=== PATIENT | female | born 1945 | race Caucasian/White ===

== ENCOUNTER 2016-06-06 13:42 | Inpatient (IN) | payer MEDICARE, MEDICAID ==
[~2016-06-06] VITALS: Ht 162.6 cm; Wt 76.5 kg
[~2016-06-06 13:42] MED LIST: ALBU1AER INH; ARIC5TAB PO; ATOR20TA42 PO; BETH25 PO; DOCU1CAP39 PO; FERR324T4 PO; FOLI1TAB PO; MELO15 PO; OXYB5TAB PO; PANT20 PO; TRAZ50TA4 PO; TYLE500T PO; VALP250 PO
[2016-06-06] MEDS ORDERED: SODIUM CHLOR 0.9% 1000 ML INJ 1,000 ML IV SCH (14:36)
--- NOTE | 2016-06-06 14:37 | PD ---
HPI Chief Complaint: Altered Mental Status Time Seen by Provider: 14:37 Travel History International Travel<30 days: No Contact w/Intl Traveler<30days: No Traveled to known affect area: No History of Present Illness HPI 70 year-old female with history of dementia, hypertension, COPD, CAD, presents to the emergency department from her SNF for evaluation of altered mental status. Patient had a fall yesterday. It is unknown if it was witnessed or not based on report. Patient has been "acting different." When I asked the patient what she is here for, she states "I've already told you guys." She does not report any pain. Does not mention a fall. Does not mention any recent illnesses, fever, or chills. She has no other symptoms to report at this time. PFSH Past Medical History Bipolar Disorder: Yes Anxiety: Yes Depression: Yes High Cholesterol: Yes COPD: Yes Cerebrovascular Accident: Yes Dementia: Yes Diminished Hearing: No Endocrine: No (unknown) GERD: Yes Hypertension: Yes Immune Disorder: No (unknown) Implanted Vascular Access Dvce: No Insomnia: Yes Musculoskeletal: No (unknown) Respiratory: Yes (copd) Myocardial Infarction: Yes Menopausal: Yes Past Surgical History Hysterectomy: Yes Pacemaker: No Other Surgery: Yes (plan) Social History Alcohol Use: No Tobacco Use: Yes Substance Use: No Allergies-Medications (Allergen,Severity, Reaction): Coded Allergies: Salicylates (Verified Allergy, Unknown, 06/06/16) Reported Meds & Prescriptions Reported Meds & Active Scripts Active Reported Valproic Acid 250 Mg Cap 250 Mg PO HS Tums (Calcium Carbonate (Antacid)) 500 Mg Chew 500 Mg CHEW Q6HR PRN Trazodone (Trazodone HCl) 50 Mg Tab 25 Mg PO HS Protonix (Pantoprazole Sodium) 40 Mg Tab 40 Mg PO DAILY Ditropan (Oxybutynin Chloride) 5 Mg Tab 5 Mg PO Q8HR Milk of Magnesia Liq (Magnesium Hydroxide) 400 Mg/5 Ml Susp 30 Ml PO DAILY PRN Meloxicam 15 Mg Tab 15 Mg PO DAILY Folic Acid 400 Mcg Tab 400 Mcg PO DAILY Ferrous Sulfate 325 Mg Tab 325 Mg PO DAILY Dulcolax Supp (Bisacodyl) 10 Mg Supp 10 Mg RECTAL DAILY PRN Donepezil 10 Mg Tab 10 Mg PO HS Colace (Docusate Sodium) 100 Mg Cap 100 Mg PO BID Bethanechol 25 Mg Tab 25 Mg PO Q8HR Atorvastatin (Atorvastatin Calcium) 20 Mg Tab 20 Mg PO HS Acetaminophen Extra Strength (Acetaminophen) 500 Mg Cap 500 Mg PO Q6H PRN Review of Systems ROS Limitations: Altered Mental Status Except as stated in HPI: all other systems reviewed are Neg Physical Exam Exam Limitations: Altered Mental Status Narrative GENERAL: Well-nourished female patient, pleasantly confused, lying in the bed, in no acute distress SKIN: Warm and dry. HEAD: Atraumatic. Normocephalic. EYES: Pupils equal and round. No scleral icterus. No injection or drainage. ENT: No nasal bleeding or discharge. Mucous membranes pink and moist. NECK: Trachea midline. No JVD. CARDIOVASCULAR: Tachycardic rate and rhythm. No murmur appreciated. RESPIRATORY: No accessory muscle use. Diminished. Breath sounds equal bilaterally. GASTROINTESTINAL: Abdomen soft, non-tender, nondistended. Hepatic and splenic margins not palpable. MUSCULOSKELETAL: No obvious deformities. No clubbing. No cyanosis. 1+ bilateral lower extremity edema. NEUROLOGICAL: Awake Orientation is difficult to assess based on patient's answers. No obvious cranial nerve deficits. Motor grossly within normal limits. Normal speech. Data Data Last Documented VS Vital Signs Date Time Temp Pulse Resp B/P Pulse Ox O2 Delivery O2 Flow Rate FiO2 06/06/16 20:43 98.3 103 20 101/62 94 Nasal Cannula 2 Orders Electrocardiogram (06/06/16 14:36) Alcohol (Ethanol) (06/06/16 14:36) Ammonia (06/06/16 14:36) Complete Blood Count With Diff (06/06/16 14:36) Comprehensive Metabolic Panel (06/06/16 14:36) Creatine Kinase (Cpk) (06/06/16 14:36) Drug Screen, Random Urine (06/06/16 14:36) Prothrombin Time / Inr (Pt) (06/06/16 14:36) Act Partial Throm Time (Ptt) (06/06/16 14:36) Troponin I (06/06/16 14:36) Urinalysis - C+S If Indicated (06/06/16 14:36) Chest, Single Ap (06/06/16 14:36) Ct Brain W/O Iv Contrast(Rout) (06/06/16 14:36) Blood Glucose (06/06/16 14:36) Ecg Monitoring (06/06/16 14:36) Iv Access Insert/Monitor (06/06/16 14:36) Oximetry (06/06/16 14:36) Sodium Chloride 0.9% Flush (Ns Flush) (06/06/16 14:45) Sodium Chlor 0.9% 1000 Ml Inj (Ns 1000 M (06/06/16 14:36) CKMB (06/06/16 16:53) CKMB% (06/06/16 16:53) Cath For Specimen (06/06/16 18:08) Lactic Acid Sepsis Protocol (06/06/16 18:10) Magnesium (Mg) (06/06/16 18:10) Phosphorus (Po4) (06/06/16 18:10) Blood Culture (06/06/16 18:10) Piperacil-Tazo 3.375 Gm Premix (Zosyn 3. (06/06/16 18:30) Sodium Chlor 0.9% 1000 Ml Inj (Ns 1000 M (06/06/16 20:45) Aspirin (Aspirin) (06/06/16 21:00) Admit Order (Ed Use Only) (06/06/16 20:54) Labs Laboratory Tests Test 06/06/16 06/06/16 06/06/16 16:53 19:40 20:08 White Blood Count 15.4 TH/MM3 Red Blood Count 5.16 MIL/MM3 Hemoglobin 14.0 GM/DL Hematocrit 43.2 % Mean Corpuscular Volume 83.7 FL Mean Corpuscular Hemoglobin 27.2 PG Mean Corpuscular Hemoglobin 32.5 % Concent Red Cell Distribution Width 15.6 % Platelet Count 261 TH/MM3 Mean Platelet Volume 9.8 FL Neutrophils (%) (Auto) 89.0 % Lymphocytes (%) (Auto) 6.4 % Monocytes (%) (Auto) 4.5 % Eosinophils (%) (Auto) 0.0 % Basophils (%) (Auto) 0.1 % Neutrophils # (Auto) 13.7 TH/MM3 Lymphocytes # (Auto) 1.0 TH/MM3 Monocytes # (Auto) 0.7 TH/MM3 Eosinophils # (Auto) 0.0 TH/MM3 Basophils # (Auto) 0.0 TH/MM3 CBC Comment AUTO DIFF Differential Comment AUTO DIFF CONFIRMED Platelet Estimate NORMAL Platelet Morphology Comment NORMAL Ovalocytes 1+ Acanthocytes OCC Prothrombin Time 10.7 SEC Prothromb Time International 1.0 RATIO Ratio Activated Partial 20.2 SEC Thromboplast Time Sodium Level 135 MEQ/L Potassium Level 4.8 MEQ/L Chloride Level 96 MEQ/L Carbon Dioxide Level 30.4 MEQ/L Anion Gap 9 MEQ/L Blood Urea Nitrogen 68 MG/DL Creatinine 1.64 MG/DL Estimat Glomerular Filtration 31 ML/MIN Rate Random Glucose 140 MG/DL Calcium Level 15.3 MG/DL Protein Corrected Calcium 14.7 MG/DL Total Bilirubin 0.2 MG/DL Aspartate Amino Transf 15 U/L (AST/SGOT) Alanine Aminotransferase 14 U/L (ALT/SGPT) Alkaline Phosphatase 53 U/L Ammonia 19 MCMOL/L Total Creatine Kinase 292 U/L Creatine Kinase MB 5.7 NG/ML Creatine Kinase MB % 2.0 % Troponin I 0.27 NG/ML Total Protein 7.8 GM/DL Albumin 3.8 GM/DL Ethyl Alcohol Level LESS THAN 3 MG/DL Urine Color YELLOW Urine Turbidity CLEAR Urine pH 5.5 Urine Specific [place] 1.018 Urine Protein NEG mg/dL Urine Glucose (UA) NEG mg/dL Urine Ketones NEG mg/dL Urine Occult Blood TRACE Urine Nitrite NEG Urine Bilirubin NEG Urine Urobilinogen LESS THAN 2.0 MG/DL Urine Leukocyte Esterase NEG Urine RBC 1 /hpf Urine WBC 1 /hpf Urine Squamous Epithelial 1 /hpf Cells Microscopic Urinalysis Comment CULT NOT INDICATED Urine Opiates Screen NEG Urine Barbiturates Screen NEG Urine Amphetamines Screen NEG Urine Benzodiazepines Screen NEG Urine Cocaine Screen NEG Urine Cannabinoids Screen NEG Lactic Acid Level 2.3 mmol/L [facility] Medical Decision Making Medical Screen Exam Complete: Yes Emergency Medical Condition: Yes Medical Record Reviewed: Yes Differential Diagnosis Electrolyte abnormality versus intracranial hemorrhage versus dehydration versus CVA versus sepsis Narrative Course 70-year-old female presents to the emergency department for evaluation from her long term facility for evaluation. Patient has history of dementia and offers for history. Per report patient had a fall and has been acting altered today. There is no obvious head trauma. Workup was initiated in the triage ambulance hallway. Chest x-ray result a small hiatal hernia. No acute cardiopulmonary disease. head CT shows severe periventricular and subcortical white matter small vessel ischemic changes bilaterally. There are scattered old lacunar infarcts within the bilateral basal ganglia and left cerebellar hemisphere. Central cerebral atrophy. No acute infarct, acute hemorrhage, mass effect, or extra-axial fluid collections. Lab work has not yet been collected. 1745 CBC results leukocytosis of 15.4. There is a left shift and a neutrophil count of 13.7. CMP results sodium of 135, BUN of 68, creatinine 1.64, calcium of 15.3 with approaching corrected calcium of 14.7. Troponin is elevated 0.27. I discussed the patient with my attending physician Dr. Rios was also assessed the patient. Patient is still saying no when asked if she is having pain. Urinalysis is not yet been collected. Patient is given IV antibiotics based on tachycardia and elevated white count. Sepsis protocol is initiated. Sepsis Criteria SIRS Criteria (2 or more): Heart rate over 90, WBC > 55974, < 4000 or > 10% bands Sepsis Criteria (SIRS+source): Infect source susp/known Diagnosis Primary Impression: Altered mental status Qualified Code: R41.82 - Altered mental status, unspecified altered mental status type Additional Impressions: Hypercalcemia Elevated troponin Lactic acidosis Admitting Information Admitting Physician Requests: Admit Condition: Stable Anupama Yo Jun 06, 2016 14:37
[2016-06-06] MEDS ORDERED: SODIUM CHLORIDE 0.9% FLUSH 5 ML FLUSH IVF PRN (14:45)
--- NOTE | 2016-06-06 15:29 | RADRPT ---
EXAM DATE/TIME: 06/06/2016 14:51 [facility] COMPARISON: CT ABDOMEN & PELVIS W/O CONTRAST, May 12, 2015, 13:11. CHEST SINGLE AP, March 12, 2016, 21:23 . INDICATIONS : Short of breath. MEDICAL HISTORY : Cerebrovascular disease. Hypertension. Dementia. SURGICAL HISTORY : None. ENCOUNTER: Initial ACUITY: 1 day PAIN SCORE: 0/10 LOCATION: Bilateral chest FINDINGS: The heart and mediastinal structures are stable. A small hiatal hernia is again noted. The pulmonary vascular pattern is normal. The lungs are clear. Old fracture involving the right mid clavicle is st able. CONCLUSION: 1. Small hiatal hernia. 2. No acute cardiopulmonary disease. Chandra Carlton MD on June 06, 2016 at 15:23 Board Certified Radiologist. This report was verified electronically.
[2016-06-06 15:34] VITALS: BP 145/79; PULSE 82; RESP 18; TEMP 97.9; O2SAT 98
--- NOTE | 2016-06-06 16:12 | RADRPT ---
EXAM DATE/TIME: 06/06/2016 15:37 [facility] COMPARISON: CT BRAIN W/O CONTRAST, October 25, 2015, 21:55. INDICATIONS : Altered mental status RADIATION DOSE: 43.18 CTDIvol (mGy) MEDICAL HISTORY : Stroke. Dementia. Hypertension. SURGICAL HISTORY : None. ENCOUNTER: Initial ACUITY: 1 day PAIN SCALE: Non-responsive LOCATION: Cranial TECHNIQUE: Multiple contiguous axial images were obtained of the head. Using automated exposure control and adj ustment of the mA and/or kV according to patient size, radiation dose was kept as low as reasonably a chievable to obtain optimal diagnostic quality images. FINDINGS: Severe periventricular and subcortical white matter small vessel ischemic changes are noted bilateral ly. There are old lacunar infarcts within the bilateral basal ganglia and left cerebellar hemisphere . Central cerebral atrophy is noted. There is no acute infarct, acute hemorrhage, mass effect or ex tra-axial fluid collections. The bone windows are unremarkable. CONCLUSION: 1. Severe periventricular and subcortical white matter small vessel ischemic changes bilaterally. 2. Scattered old lacunar infarcts within the bilateral basal ganglia and left cerebellar hemisphere. 3. Central cerebral atrophy. 4. No acute infarct, acute hemorrhage, mass effect or extra-axial fluid collections. Chandra Carlton MD on June 06, 2016 at 15:55 Board Certified Radiologist. This report was verified electronically.
[2016-06-06 17:20] LABS: AUTOMATED NEUTROPHIL # 13.7 TH/MM3 (1.8-7.7); BASOPHIL % 0.1 % (0.0-2.0); HEMATOCRIT 43.2 % (35.0-46.0); LYMPH % 6.4 % (9.0-44.0); MEAN CELL VOLUME 83.7 FL (80.0-100.0); MEAN CORPUSCULAR HEMOGLOBIN 27.2 PG (27.0-34.0); MEAN CORPUSCULAR HGB CONC 32.5 % (32.0-36.0); MONO % 4.5 % (0.0-8.0); PLATELET COUNT 261 TH/MM3 (150-450); RED BLOOD COUNT 5.16 MIL/MM3 (4.00-5.30); RED CELL DISTRIBUTION WIDTH 15.6 % (11.6-17.2); WHITE BLOOD COUNT 15.4 TH/MM3 (4.0-11.0)
[2016-06-06 17:29] LABS: HEMO FLAGS AUTO DIFF
[2016-06-06 17:40] LABS: APTT (PATIENT) 20.2 SEC (24.3-30.1); PROTHROMBIN TIME - PATIENT 10.7 SEC (9.8-11.6)
[2016-06-06 17:52] LABS: ACANTHOCYTES OCC (NORMAL); ALKALINE PHOSPHATASE 53 U/L (45-117); ALT (GPT) 14 U/L (10-53); ANION GAP 9 MEQ/L (5-15); AST (GOT) 15 U/L (15-37); BICARBONATE 30.4 MEQ/L (21.0-32.0); BLOOD UREA NITROGEN 68 MG/DL (7-18); CHLORIDE 96 MEQ/L (98-107); CREATINE KINASE 292 U/L (26-192); GLOMERULAR FILTRATION RATE 31 ML/MIN (>89); POTASSIUM 4.8 MEQ/L (3.5-5.1); SODIUM (NA) 135 MEQ/L (136-145); TOTAL BILIRUBIN ADULT 0.2 MG/DL (0.2-1.0)
[2016-06-06 17:53] LABS: OVALOCYTES 1+ (NORMAL); PLATELET ESTIMATE SMEAR NORMAL (NORMAL); PLATELET MORPHOLOGY NORMAL (NORMAL); SCAN/DIFF AUTO DIFF CONFIRMED
[2016-06-06 18:01] LABS: CALCIUM-PROTEIN CORRECTED 14.7 MG/DL (8.5-10.1)
[2016-06-06 18:22] LABS: CKMB 5.7 NG/ML (0.5-3.6)
[2016-06-06] MEDS ORDERED: PIPERACIL-TAZO 3.375 GM PREMIX 50 ML IV ONE (18:30)
[2016-06-06 19:26] VITALS: BP 132/76; PULSE 120; RESP 20; TEMP 97.9; O2SAT 94
[2016-06-06 19:30] VITALS: RESP 18
[2016-06-06 20:19] LABS: BLOOD, URINE TRACE (NEG); GLUCOSE,URINE NEG (NEG); KETONE, URINE NEG (NEG); NITRITE,URINE NEG (NEG); PH, URINE 5.5 (5.0-8.5); SQUAMOUS EPITHELIAL CELL URINE 1 /hpf (0-5); URINE COLOR YELLOW (YELLW/STRAW)
[2016-06-06 20:22] LABS: AMPHETAMINE, URINE NEG (NEG); BARBITURATES, URINE NEG (NEG); COCAINE, URINE NEG (NEG)
[2016-06-06 20:33] LABS: COMMENT (UR) CULT NOT INDICATED; CULTURE IF INDICATED CULT NOT INDICATED
--- NOTE | 2016-06-06 20:37 | PD ---
Physical Exam Narrative GENERAL: Well-nourished, well-developed patient. SKIN: Warm and dry. HEAD: Normocephalic EYES: No injection or drainage. ENT: No nasal drainage noted. NECK: Supple, trachea midline. CARDIOVASCULAR: Regular rate and rhythm RESPIRATORY: no increased effort. No accessory muscle use. NEUROLOGICAL: Awake. moves all extremities. Normal speech. Data Data Last Documented VS Vital Signs Date Time Temp Pulse Resp B/P Pulse Ox O2 Delivery O2 Flow Rate FiO2 06/06/16 20:43 98.3 103 20 101/62 94 Nasal Cannula 2 Orders Electrocardiogram (06/06/16 14:36) Alcohol (Ethanol) (06/06/16 14:36) Ammonia (06/06/16 14:36) Complete Blood Count With Diff (06/06/16 14:36) Comprehensive Metabolic Panel (06/06/16 14:36) Creatine Kinase (Cpk) (06/06/16 14:36) Drug Screen, Random Urine (06/06/16 14:36) Prothrombin Time / Inr (Pt) (06/06/16 14:36) Act Partial Throm Time (Ptt) (06/06/16 14:36) Troponin I (06/06/16 14:36) Urinalysis - C+S If Indicated (06/06/16 14:36) Chest, Single Ap (06/06/16 14:36) Ct Brain W/O Iv Contrast(Rout) (06/06/16 14:36) Blood Glucose (06/06/16 14:36) Ecg Monitoring (06/06/16 14:36) Iv Access Insert/Monitor (06/06/16 14:36) Oximetry (06/06/16 14:36) Sodium Chloride 0.9% Flush (Ns Flush) (06/06/16 14:45) Sodium Chlor 0.9% 1000 Ml Inj (Ns 1000 M (06/06/16 14:36) CKMB (06/06/16 16:53) CKMB% (06/06/16 16:53) Cath For Specimen (06/06/16 18:08) Lactic Acid Sepsis Protocol (06/06/16 18:10) Magnesium (Mg) (06/06/16 18:10) Phosphorus (Po4) (06/06/16 18:10) Blood Culture (06/06/16 18:10) Piperacil-Tazo 3.375 Gm Premix (Zosyn 3. (06/06/16 18:30) Sodium Chlor 0.9% 1000 Ml Inj (Ns 1000 M (06/06/16 20:45) Aspirin (Aspirin) (06/06/16 21:00) Labs Laboratory Tests Test 06/06/16 06/06/16 16:53 19:40 White Blood Count 15.4 TH/MM3 Red Blood Count 5.16 MIL/MM3 Hemoglobin 14.0 GM/DL Hematocrit 43.2 % Mean Corpuscular Volume 83.7 FL Mean Corpuscular Hemoglobin 27.2 PG Mean Corpuscular Hemoglobin 32.5 % Concent Red Cell Distribution Width 15.6 % Platelet Count 261 TH/MM3 Mean Platelet Volume 9.8 FL Neutrophils (%) (Auto) 89.0 % Lymphocytes (%) (Auto) 6.4 % Monocytes (%) (Auto) 4.5 % Eosinophils (%) (Auto) 0.0 % Basophils (%) (Auto) 0.1 % Neutrophils # (Auto) 13.7 TH/MM3 Lymphocytes # (Auto) 1.0 TH/MM3 Monocytes # (Auto) 0.7 TH/MM3 Eosinophils # (Auto) 0.0 TH/MM3 Basophils # (Auto) 0.0 TH/MM3 CBC Comment AUTO DIFF Differential Comment AUTO DIFF CONFIRMED Platelet Estimate NORMAL Platelet Morphology Comment NORMAL Ovalocytes 1+ Acanthocytes OCC Prothrombin Time 10.7 SEC Prothromb Time International 1.0 RATIO Ratio Activated Partial 20.2 SEC Thromboplast Time Sodium Level 135 MEQ/L Potassium Level 4.8 MEQ/L Chloride Level 96 MEQ/L Carbon Dioxide Level 30.4 MEQ/L Anion Gap 9 MEQ/L Blood Urea Nitrogen 68 MG/DL Creatinine 1.64 MG/DL Estimat Glomerular Filtration 31 ML/MIN Rate Random Glucose 140 MG/DL Calcium Level 15.3 MG/DL Protein Corrected Calcium 14.7 MG/DL Total Bilirubin 0.2 MG/DL Aspartate Amino Transf 15 U/L (AST/SGOT) Alanine Aminotransferase 14 U/L (ALT/SGPT) Alkaline Phosphatase 53 U/L Ammonia 19 MCMOL/L Total Creatine Kinase 292 U/L Creatine Kinase MB 5.7 NG/ML Creatine Kinase MB % 2.0 % Troponin I 0.27 NG/ML Total Protein 7.8 GM/DL Albumin 3.8 GM/DL Ethyl Alcohol Level LESS THAN 3 MG/DL Urine Color YELLOW Urine Turbidity CLEAR Urine pH 5.5 Urine Specific [place] 1.018 Urine Protein NEG mg/dL Urine Glucose (UA) NEG mg/dL Urine Ketones NEG mg/dL Urine Occult Blood TRACE Urine Nitrite NEG Urine Bilirubin NEG Urine Urobilinogen LESS THAN 2.0 MG/DL Urine Leukocyte Esterase NEG Urine RBC 1 /hpf Urine WBC 1 /hpf Urine Squamous Epithelial 1 /hpf Cells Microscopic Urinalysis Comment CULT NOT INDICATED Urine Opiates Screen NEG Urine Barbiturates Screen NEG Urine Amphetamines Screen NEG Urine Benzodiazepines Screen NEG Urine Cocaine Screen NEG Urine Cannabinoids Screen NEG MDM Supervised Visit with PILAR: Yes Interpretation(s) CBC & BMP Diagram 06/06/16 16:53 Last [address] 06/06/16 1436 Signed Impressions: Service Date/Time: Monday, June 06, 2016 15:37 - CONCLUSION: 1. Severe periventricular and subcortical white matter small vessel ischemic changes bilaterally. 2. Scattered old lacunar infarcts within the bilateral basal ganglia and left cerebellar hemisphere. 3. Central cerebral atrophy. 4. No acute infarct, acute hemorrhage, mass effect or extra-axial fluid collections. Chandra Carlton MD Chest X-Ray 06/06/16 1436 Signed Impressions: Service Date/Time: Monday, June 06, 2016 14:51 - CONCLUSION: 1. Small hiatal hernia. 2. No acute cardiopulmonary disease. Chandra Carlton MD Narrative Course I, Dr. coleman, have reviewed the advance practice practitioner's documentation and am in agreement, met with the patient face to face, made the diagnosis, and the medical decision making was done by me. *My assessment and Findings: 70-year-old female who presents with altered mental status her workup reveals leukocytosis and hypercalcemia. She will be given broad-spectrum antibiotics and lactate was added on. She'll be given IV fluid hydration and admitted to the hospital for further care. Physician Communication Physician Communication dr sen agrees to admit Diagnosis Primary Impression: Hypercalcemia Additional Impressions: Acute kidney injury Elevated troponin Leukocytosis Qualified Code: D72.829 - Leukocytosis, unspecified type Altered mental status Qualified Code: R41.82 - Altered mental status, unspecified altered mental status type Admitting Information Admitting Physician Requests: Admit Condition: Stable Prema Coleman MD Jun 06, 2016 20:37
[2016-06-06 20:43] VITALS: BP 101/62; PULSE 103; RESP 20; TEMP 98.3; O2SAT 94
[2016-06-06] MEDS ORDERED: SODIUM CHLOR 0.9% 1000 ML INJ 1,000 ML IV ONE (20:45)
[2016-06-06] MEDS ORDERED: FOLI400T PO (20:59)
[2016-06-06] MEDS ORDERED: VALP250C PO (20:59)
[2016-06-06] MEDS ORDERED: TRAZ50TA12 PO (20:59)
[2016-06-06] MEDS ORDERED: FERR325T PO (20:59)
[2016-06-06] MEDS ORDERED: ATOR20TA15 PO (20:59)
[2016-06-06] MEDS ORDERED: COLA100C3 PO (20:59)
[2016-06-06] MEDS ORDERED: BETH25TA2 PO (20:59)
[2016-06-06] MEDS ORDERED: PROT40TA PO (20:59)
[2016-06-06] MEDS ORDERED: MELO-1 PO (20:59)
[2016-06-06] MEDS ORDERED: TUMS500C CHEW (20:59)
[2016-06-06] MEDS ORDERED: DONE10TA7 PO (20:59)
[2016-06-06] MEDS ORDERED: OXYB5TAB10 PO (20:59)
[2016-06-06] MEDS ORDERED: DULC10SU3 RECTAL (20:59)
[2016-06-06] MEDS ORDERED: EXTR500C PO (20:59)
[2016-06-06] MEDS ORDERED: MILKSUS PO (20:59)
[2016-06-06] MEDS ORDERED: ASPIRIN 325 MG TAB PO ONE (21:00)
[2016-06-06 22:06] VITALS: BP 124/66; PULSE 98; RESP 20; TEMP 98; O2SAT 94
[2016-06-06 22:21] LABS: LACTIC ACID GHOST NOT REPORTABLE
[2016-06-06] MEDS ORDERED: SODIUM CHLORIDE 0.9% FLUSH 5 ML FLUSH FLUSH PRN (22:45)
[2016-06-06] MEDS ORDERED: NALOXONE HCL 0.4 MG/ML AMP IV PRN (22:45)
[2016-06-06 23:35] VITALS: BP 119/61; PULSE 98; RESP 20; TEMP 98; O2SAT 98
[2016-06-07] VITALS (8 sets, daily range): BP systolic 120–177; BP diastolic 75–94; PULSE 96–107; RESP 18–20; TEMP 97–98.4; O2SAT 95–97
[2016-06-07 05:45] LABS: AUTOMATED NEUTROPHIL # 8.8 TH/MM3 (1.8-7.7); BASOPHIL % 0.2 % (0.0-2.0); EOSINOPHIL % 0.3 % (0.0-4.0); HEMATOCRIT 35.5 % (35.0-46.0); LYMPH % 10.2 % (9.0-44.0); LYMPHOCYTE # 1.1 TH/MM3 (1.0-4.8); MEAN CELL VOLUME 85.8 FL (80.0-100.0); MEAN CORPUSCULAR HEMOGLOBIN 27.7 PG (27.0-34.0); MEAN CORPUSCULAR HGB CONC 32.2 % (32.0-36.0); MONO % 7.6 % (0.0-8.0); NEUT % 81.7 % (16.0-70.0); PLATELET COUNT 217 TH/MM3 (150-450); RED BLOOD COUNT 4.14 MIL/MM3 (4.00-5.30); WHITE BLOOD COUNT 10.8 TH/MM3 (4.0-11.0)
[2016-06-07 05:59] LABS: HEMO FLAGS AUTO DIFF
[2016-06-07 06:16] LABS: BICARBONATE 29.8 MEQ/L (21.0-32.0); POTASSIUM 4.5 MEQ/L (3.5-5.1); TOTAL BILIRUBIN ADULT 0.2 MG/DL (0.2-1.0)
[2016-06-07 07:04] LABS: ACANTHOCYTES OCC (NORMAL); OVALOCYTES 1+ (NORMAL); PLATELET ESTIMATE SMEAR NORMAL (NORMAL); PLATELET MORPHOLOGY NORMAL (NORMAL)
[2016-06-07 07:05] LABS: SCAN/DIFF AUTO DIFF CONFIRMED
[2016-06-07] MEDS: SODIUM CHLORIDE 0.9% FLUSH 5 ML FLUSH FLUSH SCH ×2 (09:00→20:51)
--- NOTE | 2016-06-07 10:48 | EKG ---
Date Performed: 06/06/2016 Time Performed: 17:51:37 PTAGE: 70 years EKG: SINUS TACHYCARDIA ABNORMAL RHYTHM ECG INTERPRETATION BASED ON A DEFAULT AGE OF 40 YEARS PREVIOUS TRACING : 03/12/2016 21.13 Compared to prior tracing no significant change DOCTOR: Michael Almodovar Interpretating Date/Time 06/07/2016 10:46:31
--- NOTE | 2016-06-07 12:39 | HHI.HP ---
History of Present Illness Service [facility] practice Primary Care Physician Manuel Crespo, DO Admission Diagnosis hypercalcemia Diagnoses: History of Present Illness 70 year-old female with history of dementia, hypertension, COPD, CAD, presents to the emergency department from her SNF for evaluation of altered mental status. Patient had a fall yesterday. It is unknown if it was witnessed or not based on report. Patient has been "acting different." Patient is a very poor historian and not answering all questions. Does not mention any recent illnesses, fever, or chills. She was found to leukocytosis, positive tropins, and hypercalcemia. Review of Systems ROS Limitations: Poor Historian Constitutional: COMPLAINS OF: Fatigue, DENIES: Fever, Chills Respiratory: DENIES: Cough, Wheezing, Sputum production, Shortness of breath Cardiovascular: DENIES: Chest pain, Palpitations Gastrointestinal: DENIES: Abdominal pain, Constipation, Diarrhea Neurologic: COMPLAINS OF: Localized weakness, Poor Balance, DENIES: Headache, Seizures Psychiatric: DENIES: Confusion Past Family Social History Allergies: Coded Allergies: Salicylates (Verified Allergy, Unknown, 06/06/16) Past Medical History Bipolar Disorder: Yes Anxiety: Yes Depression: Yes High Cholesterol: Yes COPD: Yes Cerebrovascular Accident: Yes Dementia: Yes Diminished Hearing: No Endocrine: No (unknown) GERD: Yes Hypertension: Yes Immune Disorder: No (unknown) Implanted Vascular Access Dvce: No Insomnia: Yes Musculoskeletal: No (unknown) Respiratory: Yes (copd) Myocardial Infarction: Yes Menopausal: Yes Past Surgical History Hysterectomy Reported Medications Reported Meds & Active Scripts Active Reported Valproic Acid 250 Mg Cap 250 Mg PO HS Tums (Calcium Carbonate (Antacid)) 500 Mg Chew 500 Mg CHEW Q6HR PRN Trazodone (Trazodone HCl) 50 Mg Tab 25 Mg PO HS Protonix (Pantoprazole Sodium) 40 Mg Tab 40 Mg PO DAILY Ditropan (Oxybutynin Chloride) 5 Mg Tab 5 Mg PO Q8HR Milk of Magnesia Liq (Magnesium Hydroxide) 400 Mg/5 Ml Susp 30 Ml PO DAILY PRN Meloxicam 15 Mg Tab 15 Mg PO DAILY Folic Acid 400 Mcg Tab 400 Mcg PO DAILY Ferrous Sulfate 325 Mg Tab 325 Mg PO DAILY Dulcolax Supp (Bisacodyl) 10 Mg Supp 10 Mg RECTAL DAILY PRN Donepezil 10 Mg Tab 10 Mg PO HS Colace (Docusate Sodium) 100 Mg Cap 100 Mg PO BID Bethanechol 25 Mg Tab 25 Mg PO Q8HR Atorvastatin (Atorvastatin Calcium) 20 Mg Tab 20 Mg PO HS Acetaminophen Extra Strength (Acetaminophen) 500 Mg Cap 500 Mg PO Q6H PRN Active Ordered Medications Current Medications Medications (Trade) Dose Ordered Sig/Amadou Route Start Time Stop Time Status Last Admin (NS Flush) 2 ml UNSCH PRN FLUSH 06/06/16 22:45 (NS Flush) 2 ml BID FLUSH 06/07/16 09:00 06/07/16 09:00 (Narcan Inj) 0.4 mg UNSCH PRN IV 06/06/16 22:45 Family History Smokes 1/2 pack per day Denies alcohol use. Physical Exam Vital Signs Vital Signs Date Time Temp Pulse Resp B/P Pulse Ox O2 Delivery O2 Flow Rate FiO2 06/07/16 11:55 101 18 95 Room Air 06/07/16 11:55 100 18 136/75 97 Room Air 06/07/16 04:19 105 18 131/77 97 Nasal Cannula 2 06/07/16 04:17 96 18 131/77 97 Nasal Cannula 2 06/06/16 23:35 98.0 98 20 119/61 98 Nasal Cannula 2 06/06/16 22:06 98.0 98 20 124/66 94 Nasal Cannula 2 06/06/16 20:43 98.3 103 20 101/62 94 Nasal Cannula 2 06/06/16 19:30 18 06/06/16 19:26 97.9 120 20 132/76 94 Nasal Cannula 2 06/06/16 15:34 97.9 82 18 145/79 98 Physical Exam GENERAL: This is a obese female. Alert to self only. , SKIN: No rashes, ecchymoses or lesions. Cool and dry. EYES: Pupils equal round and reactive. CARDIOVASCULAR: Regular rate and rhythm without murmurs, gallops, or rubs. RESPIRATORY: Clear to auscultation. Breath sounds equal bilaterally. No wheezes , rales, or rhonchi. GASTROINTESTINAL: Abdomen soft, non-tender, nondistended. MUSCULOSKELETAL: Extremities without clubbing, cyanosis, or edema. Negative Homans sign bilaterally. NEUROLOGICAL: Awake and alert. Normal speech. Laboratory Laboratory Tests Test 06/06/16 06/06/16 06/06/16 06/06/16 16:53 19:40 20:08 22:55 White Blood Count 15.4 Red Blood Count 5.16 Hemoglobin 14.0 Hematocrit 43.2 Mean Corpuscular Volume 83.7 Mean Corpuscular Hemoglobin 27.2 Mean Corpuscular Hemoglobin 32.5 Concent Red Cell Distribution Width 15.6 Platelet Count 261 Mean Platelet Volume 9.8 Neutrophils (%) (Auto) 89.0 Lymphocytes (%) (Auto) 6.4 Monocytes (%) (Auto) 4.5 Eosinophils (%) (Auto) 0.0 Basophils (%) (Auto) 0.1 Neutrophils # (Auto) 13.7 Lymphocytes # (Auto) 1.0 Monocytes # (Auto) 0.7 Eosinophils # (Auto) 0.0 Basophils # (Auto) 0.0 CBC Comment AUTO DIFF Differential Comment AUTO DIFF CONFIRMED Platelet Estimate NORMAL Platelet Morphology Comment NORMAL Ovalocytes 1+ Acanthocytes OCC Prothrombin Time 10.7 Prothromb Time International 1.0 Ratio Activated Partial 20.2 Thromboplast Time Sodium Level 135 Potassium Level 4.8 Chloride Level 96 Carbon Dioxide Level 30.4 Anion Gap 9 Blood Urea Nitrogen 68 Creatinine 1.64 Estimat Glomerular Filtration 31 Rate Random Glucose 140 Calcium Level 15.3 Protein Corrected Calcium 14.7 Phosphorus Level 2.9 Magnesium Level 2.0 Total Bilirubin 0.2 Aspartate Amino Transf 15 (AST/SGOT) Alanine Aminotransferase 14 (ALT/SGPT) Alkaline Phosphatase 53 Ammonia 19 Total Creatine Kinase 292 Creatine Kinase MB 5.7 Creatine Kinase MB % 2.0 Troponin I 0.27 Total Protein 7.8 Albumin 3.8 Ethyl Alcohol Level LESS THAN 3 Urine Color YELLOW Urine Turbidity CLEAR Urine pH 5.5 Urine Specific [place] 1.018 Urine Protein NEG Urine Glucose (UA) NEG Urine Ketones NEG Urine Occult Blood TRACE Urine Nitrite NEG Urine Bilirubin NEG Urine Urobilinogen LESS THAN 2.0 Urine Leukocyte Esterase NEG Urine RBC 1 Urine WBC 1 Urine Squamous Epithelial 1 Cells Microscopic Urinalysis Comment CULT NOT INDICATED Urine Opiates Screen NEG Urine Barbiturates Screen NEG Urine Amphetamines Screen NEG Urine Benzodiazepines Screen NEG Urine Cocaine Screen NEG Urine Cannabinoids Screen NEG Lactic Acid Level 2.3 1.9 Test 06/06/16 06/07/16 23:20 04:53 Parathyroid Hormone (Intact) 10.5 White Blood Count 10.8 Red Blood Count 4.14 Hemoglobin 11.5 Hematocrit 35.5 Mean Corpuscular Volume 85.8 Mean Corpuscular Hemoglobin 27.7 Mean Corpuscular Hemoglobin 32.2 Concent Red Cell Distribution Width 19.0 Platelet Count 217 Mean Platelet Volume 9.7 Neutrophils (%) (Auto) 81.7 Lymphocytes (%) (Auto) 10.2 Monocytes (%) (Auto) 7.6 Eosinophils (%) (Auto) 0.3 Basophils (%) (Auto) 0.2 Neutrophils # (Auto) 8.8 Lymphocytes # (Auto) 1.1 Monocytes # (Auto) 0.8 Eosinophils # (Auto) 0.0 Basophils # (Auto) 0.0 CBC Comment AUTO DIFF Differential Comment AUTO DIFF CONFIRMED Platelet Estimate NORMAL Platelet Morphology Comment NORMAL Ovalocytes 1+ Acanthocytes OCC Sodium Level 144 Potassium Level 4.5 Chloride Level 109 Carbon Dioxide Level 29.8 Anion Gap 5 Blood Urea Nitrogen 68 Creatinine 1.34 Estimat Glomerular Filtration 39 Rate Random Glucose 89 Calcium Level 12.0 Protein Corrected Calcium Total Bilirubin 0.2 Aspartate Amino Transf 20 (AST/SGOT) Alanine Aminotransferase 13 (ALT/SGPT) Alkaline Phosphatase 44 Total Protein 6.1 Albumin 2.9 Date/Time Procedure Status Source Growth 06/06/16 20:45 Aerobic Blood Culture - Preliminary Resulted Blood Peripheral NO GROWTH IN 1 DAY 06/06/16 20:45 Anaerobic Blood Culture - Preliminary Resulted Blood Peripheral NO GROWTH IN 1 DAY Result Diagram: 06/07/163 06/07/16 0453 Imaging Last [address] 06/06/16 1436 Signed Impressions: Service Date/Time: Monday, June 06, 2016 15:37 - CONCLUSION: 1. Severe periventricular and subcortical white matter small vessel ischemic changes bilaterally. 2. Scattered old lacunar infarcts within the bilateral basal ganglia and left cerebellar hemisphere. 3. Central cerebral atrophy. 4. No acute infarct, acute hemorrhage, mass effect or extra-axial fluid collections. Chandra Carlton MD Chest X-Ray 06/06/16 1436 Signed Impressions: Service Date/Time: Monday, June 06, 2016 14:51 - CONCLUSION: 1. Small hiatal hernia. 2. No acute cardiopulmonary disease. Chandra Carlton MD Course Current Medications Medications (Trade) Dose Ordered Sig/Amadou Route Start Time Stop Time Status Last Admin (NS Flush) 2 ml UNSCH PRN FLUSH 06/06/16 22:45 (NS Flush) 2 ml BID FLUSH 06/07/16 09:00 06/07/16 09:00 (Narcan Inj) 0.4 mg UNSCH PRN IV 06/06/16 22:45 Assessment and Plan Problem List: (1) Hypercalcemia Status: Acute Plan: Calcium on admission 14.7 with AMS. This AM calcium level down to 12. Will hydrate with IVF and consult nephrology. PTH obtained and PTH peptide ordered. (2) Altered mental status Status: Acute Plan: Patient is alert to self. Just periodically answering questions. Cooperative and following command. (3) Elevated troponin Status: Acute Plan: Cardiology consulted. On telemetry. Discussed Condition With Assessment and plan discussed with Dr. Crespo Discharge Planning Plan to discharge to SNF Problem Qualifiers (1) Altered mental status: Qualified Code: R41.82 - Altered mental status, unspecified altered mental status type Sarina Wheeler Jun 07, 2016 12:39
[2016-06-07] MEDS ORDERED: ACETAMINOPHEN 500 MG CPLT PO PRN (12:45)
[2016-06-07] MEDS ORDERED: MAGNESIUM HYDROXIDE SUSP 30 ML CUP PO PRN (12:45)
[2016-06-07] MEDS ORDERED: BISACODYL 10 MG SUPP RECTAL PRN (12:45)
[2016-06-07] MEDS ORDERED: CALCIUM CARBONATE 500 MG CHEWABLE TAB CHEW PRN (12:45)
[2016-06-07] MEDS: SODIUM CHLOR 0.9% 1000 ML INJ 1,000 ML IV SCH ×2 (15:33→20:53)
--- NOTE | 2016-06-07 19:54 | MB ---
cc: ÁLVARO LIU DATE OF CONSULTATION: 06/07/2016. REASON FOR CONSULTATION: Elevated troponin. HISTORY OF PRESENT ILLNESS: 70-year-old female with past medical history significant for dementia, hypertension and COPD who presented to the emergency department from a [facility] with altered mental status. Most of the history is taken from the chart because the patient is a poor historian. There is mention of a fall prior to admission; however, no details in the report. There are no details of any complaints at the [facility] or any recent illnesses, fevers or chills, nausea or vomiting, diarrhea. She has been found to have leukocytosis in the emergency department and mildly elevated troponin's and hypercalcemia. Cardiology has been consulted for minimally elevated troponin's on admission. REVIEW OF SYSTEMS: Unobtainable. ALLERGIES: 1. SALICYLATES. PAST MEDICAL HISTORY: 1. Hypertension. 2. COPD. 3. Coronary artery disease. 4. History of myocardial infarction. 5. CVA. 6. Tobacco abuse. CARDIAC MEDICATIONS AT HOME: 1. Atorvastatin 20. FAMILY HISTORY: Noncontributory. PHYSICAL EXAMINATION: VITAL SIGNS: Temperature 97, heart rate 105, respiratory rate 20, blood pressure 152/80, 02 sat 96% on room air. GENERAL: She is awake, in no acute distress, oriented to place. NECK: No jugular venous distention. No carotid bruits. HEART: Rate is sinus tachycardia with no murmurs, rubs or gallops appreciated. LUNGS: Clear to auscultation bilaterally. No accessory muscle use. ABDOMEN: The abdomen is soft, nontender and nondistended with positive bowel sounds. EXTREMITIES: There is no cyanosis and no edema. LABORATORY DATA: Hemoglobin 11, hematocrit 35, platelet count 217,000. INR 1. Chemistries: Sodium 144, potassium 4.5, calcium 12. Troponin 0.27 and 007. Creatinine 1.6, trending down to 1.3. Urine unremarkable. Toxicology negative. EKGS: EKG shows sinus tachycardia with nonspecific S-T changes. ASSESSMENT AND PLAN: This is a 70-year-old female with the above past medical history and findings admitted from a [facility] facility with acute change in mental status in the setting of severe hypercalcemia, leukocytosis and acute kidney injury and found to have mildly elevated troponin. No complains of chest pain, shortness of breath, palpitations, near syncope, leg edema. She had an echocardiogram done in October 2015 that shows normal ejection fraction with an ejection fraction of 60% and no wall motion abnormalities. It seems like her change of mental status has to do with the severe hypercalcemia, underlying dementia, and infection. Mild troponin increase likely due to renal insufficiency. Unfortunately she is unable to provide accurate history. Thus at this point, I would treat the underlying issue hypercalcemia, LIBORIO, Infection and continue treating her CAD with optimization of medical therapy. No further workup needed at this time. Thank you for the opportunity to take part in the care of this patient. Will sign off. MD KATIE Carbone/KATE /6:58 PM /7:42 PM [email or web address]
[2016-06-07] MEDS: VALPROIC ACID 250 MG CAP PO SCH (20:50)
[2016-06-07] MEDS: DONEPEZIL HCL 5 MG TAB PO SCH (20:52)
[2016-06-08] VITALS (8 sets, daily range): BP systolic 112–179; BP diastolic 68–86; PULSE 96–110; RESP 16–18; TEMP 97.8–98.8; O2SAT 94–97
--- NOTE | 2016-06-08 06:59 | HHI.PR ---
Subjective Remarks Patient is more alert. Oriented to self and location. Denies any CP or SOB Objective Vital Signs Date Time Temp Pulse Resp B/P Pulse Ox O2 Delivery O2 Flow Rate FiO2 06/08/16 04:00 97.8 109 18 179/86 97 06/08/16 00:00 98.1 110 18 145/77 94 06/07/16 20:26 103 06/07/16 20:00 98.4 107 20 177/94 95 06/07/16 19:45 Room Air 06/07/16 16:00 97.0 105 20 152/80 96 06/07/16 15:34 Room Air 06/07/16 14:00 97.0 106 20 120/76 97 06/07/16 11:55 101 18 95 Room Air 06/07/16 11:55 100 18 136/75 97 Room Air 06/07/16 08:00 100 I/O 06/07/16 06/07/16 06/07/16 06/08/16 06/08/16 06/08/16 07:00 15:00 23:00 07:00 15:00 23:00 Intake Total 800 ml 1160 ml Balance 800 ml 1160 ml Intake Oral 360 ml IV Total 800 ml 800 ml # Voids 1 3 # Bowel Movements 0 Result Diagram: 06/07/16 0453 06/07/16 0453 Other Results GENERAL: This is a obese female. Alert to self and location SKIN: No rashes, ecchymoses or lesions. Cool and dry. EYES: Pupils equal round and reactive. CARDIOVASCULAR: Regular rate and rhythm without murmurs, gallops, or rubs. RESPIRATORY: Clear to auscultation. Breath sounds equal bilaterally. No wheezes , rales, or rhonchi. GASTROINTESTINAL: Abdomen soft, non-tender, nondistended. MUSCULOSKELETAL: Extremities without clubbing, cyanosis, or edema. Negative Homans sign bilaterally. NEUROLOGICAL: Awake and alert. Delayed speech. Medications and IVs Current Medications Medications (Trade) Dose Ordered Sig/Amadou Route Start Time Stop Time Status Last Admin (NS Flush) 2 ml UNSCH PRN FLUSH 06/06/16 22:45 (NS Flush) 2 ml BID FLUSH 06/07/16 09:00 06/07/16 20:51 (Narcan Inj) 0.4 mg UNSCH PRN IV 06/06/16 22:45 (Tylenol) 500 mg Q6H PRN PO 06/07/16 12:45 (Dulcolax Supp) 10 mg DAILY PRN RECTAL 06/07/16 12:45 (Tums Chew) 500 mg Q6HR PRN CHEW 06/07/16 12:45 (Colace) 100 mg BID PO 06/08/16 09:00 06/08/16 08:39 (Aricept) 10 mg HS PO 06/07/16 21:00 06/07/16 20:52 (Folate) 1 mg DAILY PO 06/08/16 09:00 06/08/16 08:39 (Milk Of Magnesia Liq) 30 ml DAILY PRN PO 06/07/16 12:45 (Protonix) 40 mg DAILY PO 06/08/16 09:00 06/08/16 08:39 Valproic Acid 250 mg 250 mg HS PO 06/07/16 21:00 06/07/16 20:50 (NS 1000 ml Inj) 1,000 ml @ 100 mls/hr Q10H IV 06/07/16 12:45 06/08/16 08:39 Assessment and Plan Problem List: (1) Hypercalcemia Status: Acute Plan: Calcium on admission 14.7 with AMS. This AM calcium level WNL at 9.7. Will hydrate with IVF and consult nephrology. PTH obtained and PTH peptide ordered and pending (2) Altered mental status Status: Acute Plan: Patient is alert to self. Just periodically answering questions. Cooperative and following command. Hypercalcemia resolved. (3) Elevated troponin Status: Acute Plan: Cardiology consulted. On telemetry. Feels positive troponin is related to renal insufficiency and no further work up necessary. Discussed Condition With Assessment and plan discussed with Dr. Crespo Discharge Planning Plan to to SNF Problem Qualifiers (1) Altered mental status: Qualified Code: R41.82 - Altered mental status, unspecified altered mental status type Sarina Wheeler Jun 08, 2016 06:59
[2016-06-08 07:14] LABS: AUTOMATED NEUTROPHIL # 8.2 TH/MM3 (1.8-7.7); BASOPHIL % 0.5 % (0.0-2.0); EOSINOPHIL % 0.1 % (0.0-4.0); HEMATOCRIT 30.5 % (35.0-46.0); LYMPH % 10.8 % (9.0-44.0); LYMPHOCYTE # 1.1 TH/MM3 (1.0-4.8); MEAN CELL VOLUME 84.8 FL (80.0-100.0); MEAN CORPUSCULAR HEMOGLOBIN 28.5 PG (27.0-34.0); MEAN CORPUSCULAR HGB CONC 33.6 % (32.0-36.0); MONO % 7.1 % (0.0-8.0); NEUT % 81.5 % (16.0-70.0); PLATELET COUNT 218 TH/MM3 (150-450); RED CELL DISTRIBUTION WIDTH 15.7 % (11.6-17.2)
[2016-06-08 07:40] LABS: ALKALINE PHOSPHATASE 40 U/L (45-117); ALT (GPT) 12 U/L (10-53); ANION GAP 7 MEQ/L (5-15); AST (GOT) 19 U/L (15-37); BICARBONATE 27.3 MEQ/L (21.0-32.0); BLOOD UREA NITROGEN 50 MG/DL (7-18); CHLORIDE 108 MEQ/L (98-107); GLOMERULAR FILTRATION RATE 60 ML/MIN (>89); POTASSIUM 3.4 MEQ/L (3.5-5.1); SODIUM (NA) 142 MEQ/L (136-145); TOTAL BILIRUBIN ADULT 0.1 MG/DL (0.2-1.0)
[2016-06-08 07:41] LABS: HEMO FLAGS AUTO DIFF
[2016-06-08] MEDS: PANTOPRAZOLE SOD 40 MG DELAYED RELEASE TAB PO SCH (08:39)
[2016-06-08] MEDS: DOCUSATE SODIUM 100 MG CAP PO SCH ×2 (08:39→20:08)
[2016-06-08] MEDS: SODIUM CHLOR 0.9% 1000 ML INJ 1,000 ML IV SCH ×2 (08:39→20:09)
[2016-06-08] MEDS: FOLIC ACID 1 MG TAB PO SCH (08:39)
[2016-06-08] MEDS: SODIUM CHLORIDE 0.9% FLUSH 5 ML FLUSH FLUSH SCH ×2 (08:41→20:08)
[2016-06-08 10:05] LABS: OVALOCYTES 1+ (NORMAL); PLATELET ESTIMATE SMEAR NORMAL (NORMAL); PLATELET MORPHOLOGY NORMAL (NORMAL); SCAN/DIFF AUTO DIFF CONFIRMED
[2016-06-08 10:06] LABS: ACANTHOCYTES OCC (NORMAL)
[2016-06-08] MEDS: POTASSIUM CHLORIDE 20 MEQ CONTROLLED RELEASE TAB PO SCH (12:29)
[2016-06-08] MEDS: DONEPEZIL HCL 5 MG TAB PO SCH (20:08)
[2016-06-08] MEDS: VALPROIC ACID 250 MG CAP PO SCH (20:08)
[2016-06-09] VITALS (7 sets, daily range): BP systolic 110–133; BP diastolic 57–74; PULSE 81–104; RESP 16–24; TEMP 97–98.1; O2SAT 93–98
[2016-06-09 00:24] LABS: AUTOMATED NEUTROPHIL # 3.9 TH/MM3 (1.8-7.7); BASOPHIL % 0.7 % (0.0-2.0); EOSINOPHIL # 0.1 TH/MM3 (0-0.4); EOSINOPHIL % 1.1 % (0.0-4.0); HEMATOCRIT 28.1 % (35.0-46.0); LYMPH % 29.5 % (9.0-44.0); LYMPHOCYTE # 1.9 TH/MM3 (1.0-4.8); MEAN CORPUSCULAR HEMOGLOBIN 28.1 PG (27.0-34.0); MONO % 9.5 % (0.0-8.0); NEUT % 59.2 % (16.0-70.0); PLATELET COUNT 196 TH/MM3 (150-450); RED BLOOD COUNT 3.31 MIL/MM3 (4.00-5.30); RED CELL DISTRIBUTION WIDTH 15.6 % (11.6-17.2); WHITE BLOOD COUNT 6.6 TH/MM3 (4.0-11.0)
[2016-06-09 00:43] LABS: HEMO FLAGS AUTO DIFF
[2016-06-09 00:57] LABS: ANION GAP 8 MEQ/L (5-15); AST (GOT) 13 U/L (15-37); BLOOD UREA NITROGEN 31 MG/DL (7-18); CHLORIDE 111 MEQ/L (98-107); GLOMERULAR FILTRATION RATE 66 ML/MIN (>89); POTASSIUM 3.6 MEQ/L (3.5-5.1); SODIUM (NA) 145 MEQ/L (136-145)
[2016-06-09 01:01] LABS: ALKALINE PHOSPHATASE 34 U/L (45-117); ALT (GPT) 9 U/L (10-53); CALCIUM-PROTEIN CORRECTED 10.2 MG/DL (8.5-10.1); TOTAL BILIRUBIN ADULT 0.1 MG/DL (0.2-1.0)
[2016-06-09 02:13] LABS: OVALOCYTES 1+ (NORMAL)
[2016-06-09 02:14] LABS: KERATOCYTES 1+ (NORMAL); SCAN/DIFF AUTO DIFF CONFIRMED
[2016-06-09 07:59] LABS: HEMATOCRIT 28.7 % (35.0-46.0); MEAN CELL VOLUME 85.5 FL (80.0-100.0); MEAN CORPUSCULAR HEMOGLOBIN 28.2 PG (27.0-34.0); PLATELET COUNT 187 TH/MM3 (150-450); RED BLOOD COUNT 3.36 MIL/MM3 (4.00-5.30); RED CELL DISTRIBUTION WIDTH 14.9 % (11.6-17.2)
[2016-06-09 08:00] LABS: REVIEW FLAG FINAL
[2016-06-09 08:13] LABS: BICARBONATE 26.9 MEQ/L (21.0-32.0); POTASSIUM 3.7 MEQ/L (3.5-5.1)
[2016-06-09] MEDS: POTASSIUM CHLORIDE 20 MEQ CONTROLLED RELEASE TAB PO SCH (09:48)
[2016-06-09] MEDS: SODIUM CHLORIDE 0.9% FLUSH 5 ML FLUSH FLUSH SCH ×2 (09:48→20:30)
[2016-06-09] MEDS: DOCUSATE SODIUM 100 MG CAP PO SCH ×2 (09:48→20:29)
[2016-06-09] MEDS: PANTOPRAZOLE SOD 40 MG DELAYED RELEASE TAB PO SCH (09:48)
[2016-06-09] MEDS: FOLIC ACID 1 MG TAB PO SCH (09:48)
--- NOTE | 2016-06-09 16:51 | PD.CONS ---
HPI Service Nephrology Consult Requested By Dr. Crespo Reason for Consult Hypercalcemia Primary Care Physician Manuel Crespo, DO History of Present Illness 70 year old female with GERD admitted with hypercalcemia resident of [place] and was taking Tums, she states she was not aware that she is taking Calcium in form of Tums, she states she is unable to walk due to weakness as well, she presented with a calcium of 15.3 and with hydration it has corrected to 8.9 -9.1 range, her PTH is low. Review of Systems Constitutional: COMPLAINS OF: Fatigue Neurologic: COMPLAINS OF: Abnormal gait Past Family Social History Allergies: Coded Allergies: Salicylates (Verified Allergy, Unknown, 06/06/16) Past Medical History COPD Hypertension CAD GERD Anemia Bipolar Past Surgical History Hysterectomy Reported Medications Reported Meds & Active Scripts Active Reported Valproic Acid 250 Mg Cap 250 Mg PO HS Tums (Calcium Carbonate (Antacid)) 500 Mg Chew 500 Mg CHEW Q6HR PRN Trazodone (Trazodone HCl) 50 Mg Tab 25 Mg PO HS Protonix (Pantoprazole Sodium) 40 Mg Tab 40 Mg PO DAILY Ditropan (Oxybutynin Chloride) 5 Mg Tab 5 Mg PO Q8HR Milk of Magnesia Liq (Magnesium Hydroxide) 400 Mg/5 Ml Susp 30 Ml PO DAILY PRN Meloxicam 15 Mg Tab 15 Mg PO DAILY Folic Acid 400 Mcg Tab 400 Mcg PO DAILY Ferrous Sulfate 325 Mg Tab 325 Mg PO DAILY Dulcolax Supp (Bisacodyl) 10 Mg Supp 10 Mg RECTAL DAILY PRN Donepezil 10 Mg Tab 10 Mg PO HS Colace (Docusate Sodium) 100 Mg Cap 100 Mg PO BID Bethanechol 25 Mg Tab 25 Mg PO Q8HR Atorvastatin (Atorvastatin Calcium) 20 Mg Tab 20 Mg PO HS Acetaminophen Extra Strength (Acetaminophen) 500 Mg Cap 500 Mg PO Q6H PRN Active Ordered Medications Current Medications Medications (Trade) Dose Ordered Sig/Amadou Route Start Time Stop Time Status Last Admin (NS Flush) 2 ml UNSCH PRN FLUSH 06/06/16 22:45 (NS Flush) 2 ml BID FLUSH 06/07/16 09:00 06/08/16 20:08 (Narcan Inj) 0.4 mg UNSCH PRN IV 06/06/16 22:45 (Tylenol) 500 mg Q6H PRN PO 06/07/16 12:45 (Dulcolax Supp) 10 mg DAILY PRN RECTAL 06/07/16 12:45 (Tums Chew) 500 mg Q6HR PRN CHEW 06/07/16 12:45 06/09/16 09:48 (Colace) 100 mg BID PO 06/08/16 09:00 06/09/16 09:48 (Aricept) 10 mg HS PO 06/07/16 21:00 06/08/16 20:08 (Folate) 1 mg DAILY PO 06/08/16 09:00 06/09/16 09:48 (Milk Of Magnesia Liq) 30 ml DAILY PRN PO 06/07/16 12:45 (Protonix) 40 mg DAILY PO 06/08/16 09:00 06/09/16 09:48 Valproic Acid 250 mg 250 mg HS PO 06/07/16 21:00 06/08/16 20:08 (NS 1000 ml Inj) 1,000 ml @ 42 mls/hr [id number] IV 06/07/16 12:45 06/08/16 20:09 (KCl) 20 meq DAILY PO 06/08/16 12:00 06/09/16 09:48 Family History noncontributory Social History hx of smoking Physical Exam Vital Signs Vital Signs Date Time Temp Pulse Resp B/P Pulse Ox O2 Delivery O2 Flow Rate FiO2 06/09/16 12:00 97.8 94 24 133/74 97 06/09/16 09:54 Room Air 06/09/16 09:54 92 06/09/16 08:00 97.0 104 16 119/65 96 06/09/16 04:00 97.8 81 16 131/72 93 06/09/16 00:00 98.1 89 17 110/64 95 06/08/16 20:11 Room Air 06/08/16 20:11 99 06/08/16 20:00 98.8 96 16 117/73 97 Physical Exam GENERAL: Well-nourished, well-developed patient. SKIN: Warm and dry. HEAD: Normocephalic. EYES: No scleral icterus. No injection or drainage. NECK: Supple, trachea midline. No JVD or lymphadenopathy. CARDIOVASCULAR: Regular rate and rhythm without murmurs, gallops, or rubs. RESPIRATORY: Breath sounds equal bilaterally. No accessory muscle use. GASTROINTESTINAL: Abdomen soft, non-tender, nondistended. EXTREMITIES: No cyanosis, or edema. NEUROLOGICAL: Awake, alert, and oriented x 3. generalized weakness Laboratory Laboratory Tests Test 06/08/16 06/09/16 23:40 07:19 White Blood Count 6.6 6.0 Red Blood Count 3.31 3.36 Hemoglobin 9.3 9.5 Hematocrit 28.1 28.7 Mean Corpuscular Volume 85.0 85.5 Mean Corpuscular Hemoglobin 28.1 28.2 Mean Corpuscular Hemoglobin 33.0 33.0 Concent Red Cell Distribution Width 15.6 14.9 Platelet Count 196 187 Mean Platelet Volume 9.4 9.6 Neutrophils (%) (Auto) 59.2 Lymphocytes (%) (Auto) 29.5 Monocytes (%) (Auto) 9.5 Eosinophils (%) (Auto) 1.1 Basophils (%) (Auto) 0.7 Neutrophils # (Auto) 3.9 Lymphocytes # (Auto) 1.9 Monocytes # (Auto) 0.6 Eosinophils # (Auto) 0.1 Basophils # (Auto) 0.0 CBC Comment AUTO DIFF Differential Comment AUTO DIFF CONFIRMED Ovalocytes 1+ Keratocytes 1+ Sodium Level 145 143 Potassium Level 3.6 3.7 Chloride Level 111 109 Carbon Dioxide Level 26.0 26.9 Anion Gap 8 7 Blood Urea Nitrogen 31 30 Creatinine 0.86 0.86 Estimat Glomerular Filtration 66 66 Rate Random Glucose 82 79 Calcium Level 8.9 9.1 Protein Corrected Calcium 10.2 Total Bilirubin 0.1 Aspartate Amino Transf 13 (AST/SGOT) Alanine Aminotransferase 9 (ALT/SGPT) Alkaline Phosphatase 34 Total Protein 5.2 Albumin 2.5 Date/Time Procedure Status Source Growth 06/06/16 20:45 Aerobic Blood Culture - Preliminary Resulted Blood Peripheral NO GROWTH IN 3 DAYS 06/06/16 20:45 Anaerobic Blood Culture - Preliminary Resulted Blood Peripheral NO GROWTH IN 3 DAYS Result Diagram: 06/09/16 0719 06/09/16718 Imaging Last Impressions Head CT 06/06/16 1436 Signed Impressions: Service Date/Time: Monday, June 06, 2016 15:37 - CONCLUSION: 1. Severe periventricular and subcortical white matter small vessel ischemic changes bilaterally. 2. Scattered old lacunar infarcts within the bilateral basal ganglia and left cerebellar hemisphere. 3. Central cerebral atrophy. 4. No acute infarct, acute hemorrhage, mass effect or extra-axial fluid collections. Chandra Carlton MD Chest X-Ray 06/06/16 1436 Signed Impressions: Service Date/Time: Monday, June 06, 2016 14:51 - CONCLUSION: 1. Small hiatal hernia. 2. No acute cardiopulmonary disease. Chandra Carlton MD Assessment and Plan Problem List: (1) Hypercalcemia Plan: This is likely due to immobility and increased intake of calcium in the form of Tums, educated her not to take Tums Calcium has declined with hydration, stop calcium carbonate, she may need Vitamin D supplements PTH is suppressed PTH like peptide pending this can be followed as out patient I will follow as needed (2) Acid reflux Plan: stable off Tums (3) COPD (chronic obstructive pulmonary disease) Plan: treatment plan per PCP Yolis Godoy MD Jun 09, 2016 16:51
[2016-06-09] MEDS ORDERED: CHOLECALCIFEROL (VIT D3) 5000 UNIT CAP PO ONE (17:00)
--- NOTE | 2016-06-09 18:08 | HHI.PR ---
Subjective Remarks improved more alert Objective Vital Signs Date Time Temp Pulse Resp B/P Pulse Ox O2 Delivery O2 Flow Rate FiO2 06/09/16 16:00 97.9 95 20 112/57 95 06/09/16 12:00 97.8 94 24 133/74 97 06/09/16 09:54 Room Air 06/09/16 09:54 92 06/09/16 08:00 97.0 104 16 119/65 96 06/09/16 04:00 97.8 81 16 131/72 93 06/09/16 00:00 98.1 89 17 110/64 95 06/08/16 20:11 Room Air 06/08/16 20:11 99 06/08/16 20:00 98.8 96 16 117/73 97 I/O 06/08/16 06/08/16 06/08/16 06/09/16 06/09/16 06/09/16 07:00 15:00 23:00 07:00 15:00 23:00 Intake Total 1160 ml 1587 ml 643 ml 120 ml 1200 ml 796 ml Balance 1160 ml 1587 ml 643 ml 120 ml 1200 ml 796 ml Intake Oral 360 ml 360 ml 320 ml 120 ml 1200 ml IV Total 800 ml 1227 ml 323 ml 796 ml # Voids 3 3 1 3 3 # Bowel Movements 0 0 1 Result Diagram: 06/09/1671806/09/16718 Objective Remarks GENERAL: SKIN: Warm and dry. HEAD: Atraumatic. Normocephalic. EYES: Pupils equal and round. No scleral icterus. No injection or drainage. ENT: No nasal bleeding or discharge. Mucous membranes pink and moist. NECK: Trachea midline. No JVD. CARDIOVASCULAR: Regular rate and rhythm. RESPIRATORY: No accessory muscle use. Clear to auscultation. Breath sounds equal bilaterally. GASTROINTESTINAL: Abdomen soft, non-tender, nondistended. Hepatic and splenic margins not palpable obese. MUSCULOSKELETAL: Extremities without clubbing, cyanosis, or edema. No obvious deformities. NEUROLOGICAL: Awake and alert. No obvious cranial nerve deficits. Motor grossly within normal limits. Five out of 5 muscle strength in the arms and legs. Normal speech. PSYCHIATRIC: Appropriate mood and affect; insight and judgment normal. Medications and IVs Current Medications Medications (Trade) Dose Ordered Sig/Amadou Route PRN Reason Start Time Stop Time Status Last Admin Dose Admin IV Flush (NS Flush) 2 ml UNSCH PRN FLUSH FLUSH AFTER USING IV ACCESS 06/06/16 22:45 IV Flush (NS Flush) 2 ml BID FLUSH 06/07/16 09:00 06/08/16 20:08 Naloxone HCl (Narcan Inj) 0.4 mg UNSCH PRN IV SEE LABEL COMMENTS 06/06/16 22:45 Acetaminophen (Tylenol) 500 mg Q6H PRN PO PAIN SCALE 1 TO 5 06/07/16 12:45 Bisacodyl (Dulcolax Supp) 10 mg DAILY PRN RECTAL CONSTIPATION 06/07/16 12:45 Docusate Sodium (Colace) 100 mg BID PO 06/08/16 09:00 06/09/16 09:48 Donepezil HCl (Aricept) 10 mg HS PO 06/07/16 21:00 06/08/16 20:08 Folic Acid (Folate) 1 mg DAILY PO 06/08/16 09:00 06/09/16 09:48 Magnesium Hydroxide (Milk Of Envysion Liq) 30 ml DAILY PRN PO INDIGESTION OR UPSET STOMACH 06/07/16 12:45 Pantoprazole Sodium (Protonix) 40 mg DAILY PO 06/08/16 09:00 06/09/16 09:48 Valproic Acid 250 mg 250 mg HS PO 06/07/16 21:00 06/08/16 20:08 Sodium Chloride (NS 1000 ml Inj) 1,000 ml @ 42 mls/hr [id number] IV 06/07/16 12:45 06/08/16 20:09 Potassium Chloride (KCl) 20 meq DAILY PO 06/08/16 12:00 06/09/16 09:48 Cholecalciferol (Vitamin D3) 5,000 units DAILY PO 06/10/16 09:00 Assessment and Plan Assessment and Plan dehydration improved hypercalcemia improved contioue fluids ck lab am Manuel Crespo DO Jun 09, 2016 18:08
[2016-06-09] MEDS: VALPROIC ACID 250 MG CAP PO SCH (20:29)
[2016-06-09] MEDS: DONEPEZIL HCL 5 MG TAB PO SCH (20:29)
[2016-06-09] MEDS: SODIUM CHLOR 0.9% 1000 ML INJ 1,000 ML IV SCH (20:31)
[2016-06-10] VITALS (8 sets, daily range): BP systolic 105–125; BP diastolic 62–70; PULSE 85–100; RESP 18–20; TEMP 96.6–98.3; O2SAT 97–99
[2016-06-10 08:13] LABS: CALCIUM-PROTEIN CORRECTED 9.6 MG/DL (8.5-10.1)
[2016-06-10] MEDS: DOCUSATE SODIUM 100 MG CAP PO SCH ×2 (08:27→20:52)
[2016-06-10] MEDS: CHOLECALCIFEROL (VIT D3) 5000 UNIT CAP PO SCH (08:27)
[2016-06-10] MEDS: FOLIC ACID 1 MG TAB PO SCH (08:27)
[2016-06-10] MEDS: POTASSIUM CHLORIDE 20 MEQ CONTROLLED RELEASE TAB PO SCH (08:28)
[2016-06-10] MEDS: PANTOPRAZOLE SOD 40 MG DELAYED RELEASE TAB PO SCH (08:28)
[2016-06-10] MEDS: SODIUM CHLORIDE 0.9% FLUSH 5 ML FLUSH FLUSH SCH ×2 (08:30→20:51)
--- NOTE | 2016-06-10 14:02 | HHI.PR ---
Subjective Remarks improved more alert now happy with her diet Objective Vital Signs Date Time Temp Pulse Resp B/P Pulse Ox O2 Delivery O2 Flow Rate FiO2 06/10/16 08:10 92 06/10/16 08:00 97.8 100 20 107/64 97 06/10/16 07:15 Room Air 2.00 28 06/10/16 04:00 98.0 85 18 114/69 99 06/10/16 00:00 97.5 93 18 110/62 97 06/09/16 20:00 Room Air 28 06/09/16 20:00 95 06/09/16 20:00 97.9 90 17 116/60 98 06/09/16 16:00 97.9 95 20 112/57 95 I/O 06/09/16 06/09/16 06/09/16 06/10/16 06/10/16 06/10/16 07:00 15:00 23:00 07:00 15:00 23:00 Intake Total 120 ml 1200 ml 1036 ml 220 ml Balance 120 ml 1200 ml 1036 ml 220 ml Intake Oral 120 ml 1200 ml 240 ml 220 ml IV Total 796 ml # Voids 3 3 2 2 # Bowel Movements 1 0 Result Diagram: 06/09/1671806/09/16718 Objective Remarks GENERAL: SKIN: Warm and dry. HEAD: Atraumatic. Normocephalic. EYES: Pupils equal and round. No scleral icterus. No injection or drainage. ENT: No nasal bleeding or discharge. Mucous membranes pink and moist. NECK: Trachea midline. No JVD. CARDIOVASCULAR: Regular rate and rhythm. RESPIRATORY: No accessory muscle use. Clear to auscultation. Breath sounds equal bilaterally. GASTROINTESTINAL: Abdomen soft, non-tender, nondistended. Hepatic and splenic margins not palpable obese. MUSCULOSKELETAL: Extremities without clubbing, cyanosis, or edema. No obvious deformities. NEUROLOGICAL: Awake and alert. No obvious cranial nerve deficits. Motor grossly within normal limits. Five out of 5 muscle strength in the arms and legs. Normal speech. PSYCHIATRIC: Appropriate mood and affect; insight and judgment normal. Medications and IVs Current Medications Medications (Trade) Dose Ordered Sig/Amadou Route PRN Reason Start Time Stop Time Status Last Admin Dose Admin IV Flush (NS Flush) 2 ml UNSCH PRN FLUSH FLUSH AFTER USING IV ACCESS 06/06/16 22:45 IV Flush (NS Flush) 2 ml BID FLUSH 06/07/16 09:00 06/09/16 20:30 Naloxone HCl (Narcan Inj) 0.4 mg UNSCH PRN IV SEE LABEL COMMENTS 06/06/16 22:45 Acetaminophen (Tylenol) 500 mg Q6H PRN PO PAIN SCALE 1 TO 5 06/07/16 12:45 Bisacodyl (Dulcolax Supp) 10 mg DAILY PRN RECTAL CONSTIPATION 06/07/16 12:45 Docusate Sodium (Colace) 100 mg BID PO 06/08/16 09:00 06/10/16 08:27 Donepezil HCl (Aricept) 10 mg HS PO 06/07/16 21:00 06/09/16 20:29 Folic Acid (Folate) 1 mg DAILY PO 06/08/16 09:00 06/10/16 08:27 Magnesium Hydroxide (Milk Of Magnesia Liq) 30 ml DAILY PRN PO INDIGESTION OR UPSET STOMACH 06/07/16 12:45 Pantoprazole Sodium (Protonix) 40 mg DAILY PO 06/08/16 09:00 06/10/16 08:28 Valproic Acid 250 mg 250 mg HS PO 06/07/16 21:00 06/09/16 20:29 Sodium Chloride (NS 1000 ml Inj) 1,000 ml @ 42 mls/hr [id number] IV 06/07/16 12:45 06/09/16 20:31 Potassium Chloride (KCl) 20 meq DAILY PO 06/08/16 12:00 06/10/16 08:28 Cholecalciferol (Vitamin D3) 5,000 units DAILY PO 06/10/16 09:00 06/10/16 08:27 Assessment and Plan Assessment and Plan dehydration improved hypercalcemia improved contioue fluids ck lab am Discharge Planning home Manuel Crespo DO Jun 10, 2016 14:02
[2016-06-10] MEDS: VALPROIC ACID 250 MG CAP PO SCH (20:52)
[2016-06-10] MEDS: DONEPEZIL HCL 5 MG TAB PO SCH (20:52)
[2016-06-10] MEDS: SODIUM CHLOR 0.9% 1000 ML INJ 1,000 ML IV SCH (20:53)
[2016-06-11] VITALS: BP 125/60; PULSE 86; RESP 18; TEMP 97.8; O2SAT 95
[2016-06-11 04:00] VITALS: BP 111/60; PULSE 96; RESP 18; TEMP 97.6; O2SAT 100
[2016-06-11 07:11] LABS: AUTOMATED NEUTROPHIL # 3.5 TH/MM3 (1.8-7.7); BASOPHIL # 0.1 TH/MM3 (0-0.2); BASOPHIL % 0.9 % (0.0-2.0); EOSINOPHIL # 0.2 TH/MM3 (0-0.4); EOSINOPHIL % 3.8 % (0.0-4.0); LYMPH % 28.6 % (9.0-44.0); LYMPHOCYTE # 1.8 TH/MM3 (1.0-4.8); MEAN CELL VOLUME 85.3 FL (80.0-100.0); MEAN CORPUSCULAR HEMOGLOBIN 28.3 PG (27.0-34.0); MEAN CORPUSCULAR HGB CONC 33.1 % (32.0-36.0); MONO % 10.6 % (0.0-8.0); NEUT % 56.1 % (16.0-70.0); PLATELET COUNT 203 TH/MM3 (150-450); RED BLOOD COUNT 3.04 MIL/MM3 (4.00-5.30); RED CELL DISTRIBUTION WIDTH 14.9 % (11.6-17.2); WHITE BLOOD COUNT 6.3 TH/MM3 (4.0-11.0)
[2016-06-11 07:21] LABS: HEMO FLAGS AUTO DIFF
[2016-06-11 07:32] LABS: CALCIUM-PROTEIN CORRECTED 9.3 MG/DL (8.5-10.1)
[2016-06-11] MEDS: FOLIC ACID 1 MG TAB PO SCH (07:46)
[2016-06-11] MEDS: PANTOPRAZOLE SOD 40 MG DELAYED RELEASE TAB PO SCH (07:46)
[2016-06-11] MEDS: CHOLECALCIFEROL (VIT D3) 5000 UNIT CAP PO SCH (07:46)
[2016-06-11] MEDS: POTASSIUM CHLORIDE 20 MEQ CONTROLLED RELEASE TAB PO SCH (07:46)
[2016-06-11] MEDS: DOCUSATE SODIUM 100 MG CAP PO SCH (07:46)
[2016-06-11] MEDS: SODIUM CHLORIDE 0.9% FLUSH 5 ML FLUSH FLUSH SCH (07:47)
[2016-06-11 08:00] VITALS: BP 101/57; PULSE 88; RESP 20; TEMP 98.3; O2SAT 97
[2016-06-11 08:04] VITALS: PULSE 44; PULSE 80
[2016-06-11 08:48] LABS: OVALOCYTES 1+ (NORMAL); PLATELET ESTIMATE SMEAR NORMAL (NORMAL); PLATELET MORPHOLOGY NORMAL (NORMAL); SCAN/DIFF AUTO DIFF CONFIRMED
[2016-06-11 11:52] VITALS: BP 104/61; PULSE 88; RESP 20; TEMP 98.3; O2SAT 100
[2016-06-11] MEDS ORDERED: CHOL5000 PO (12:03)
[2016-06-11] MEDS ORDERED: POTA20TA5 PO (12:03)
--- NOTE | 2016-06-11 12:07 | HHI.DS ---
Discharge Summary Admission Date Jun 06, 2016 at 20:56 Admitting Diagnosis hypercalcemia Brief History 70 year-old female with history of dementia, hypertension, COPD, CAD, presents to the emergency department from her SNF for evaluation of altered mental status. Patient had a fall yesterday. It is unknown if it was witnessed or not based on report. Patient has been "acting different." Patient is a very poor historian and not answering all questions. Does not mention any recent illnesses, fever, or chills. She was found to leukocytosis, positive tropins, and hypercalcemia. CBC/BMP: 06/11/16 0625 06/09/16 0719 Significant Findings Laboratory Tests Test 06/08/16 06/09/16 06/10/16 06/11/16 23:40 07:19 06:27 06:25 Red Blood Count 3.31 MIL/MM3 3.36 MIL/MM3 3.04 MIL/MM3 (4.00-5.30) (4.00-5.30) (4.00-5.30) Hemoglobin 9.3 GM/DL 9.5 GM/DL 8.6 GM/DL (11.6-15.3) (11.6-15.3) (11.6-15.3) Hematocrit 28.1 % 28.7 % 26.0 % (35.0-46.0) (35.0-46.0) (35.0-46.0) Monocytes (%) (Auto) 9.5 % (0.0-8.0) 10.6 % (0.0-8.0) Ovalocytes 1+ (NORMAL) 1+ (NORMAL) Keratocytes 1+ (NORMAL) Chloride Level 111 MEQ/L 109 MEQ/L (98-107) (98-107) Blood Urea Nitrogen 31 MG/DL (7-18) 30 MG/DL (7-18) Estimat Glomerular Filtration 66 ML/MIN (>89) 66 ML/MIN (>89) Rate Protein Corrected Calcium 10.2 MG/DL (8.5-10.1) Total Bilirubin 0.1 MG/DL (0.2-1.0) Aspartate Amino Transf 13 U/L (15-37) (AST/SGOT) Alanine Aminotransferase 9 U/L (10-53) (ALT/SGPT) Alkaline Phosphatase 34 U/L (45-117) Total Protein 5.2 GM/DL 5.1 GM/DL 5.2 GM/DL (6.4-8.2) (6.4-8.2) (6.4-8.2) Albumin 2.5 GM/DL (3.4-5.0) Calcium Level 8.3 MG/DL 8.1 MG/DL (8.5-10.1) (8.5-10.1) Transfer Summary 70 year-old female with history of dementia, hypertension, COPD, CAD, presents to the emergency department from her SNF for evaluation of altered mental status. Patient had a fall. It is unknown if it was witnessed or not based on report. Patient had been "acting different." Patient was a very poor historian and not answering all questions. Does not mention any recent illnesses, fever , or chills. She was found to leukocytosis, positive tropins, and hypercalcemia. Patient was seen by cardiology and was cleared with no further workup. She was also seen by nephrology. Her hypercalcemia was resolved with hydration. Her mental status is muck improved. She will be discharged to [facility]. Pt Condition on Discharge: Good Discharge Disposition: Discharge to SNF Discharge Instructions DIET: Follow Instructions for: Heart Healthy Diet Activities you can perform: See Additionl Instruction New Medications: Cholecalciferol (Vitamin D3) 5,000 Unit Cap 5000 UNITS PO DAILY Nutritional Supplement #30 CAP Potassium Chloride Microencaps (Potassium Chloride Microencaps) 20 Meq Tab 20 MEQ PO DAILY Electrolyte Replacement #30 TAB Continued Medications: Acetaminophen (Acetaminophen Extra Strength) 500 Mg Cap 500 MG PO Q6H PRN Ref 0 CAP Atorvastatin (Atorvastatin) 20 Mg Tab 20 MG PO HS Cholesterol Management #30 Ref 0 TAB Bisacodyl Supp (Dulcolax Supp) 10 Mg Supp 10 MG RECTAL DAILY PRN CONSTIPATION #12 Ref 0 SUPP Docusate Sodium (Colace) 100 Mg Cap 100 MG PO BID Constipation #60 Ref 0 CAP Donepezil (Donepezil) 10 Mg Tab 10 MG PO HS Dementia #30 Ref 0 TAB Ferrous Sulfate (Ferrous Sulfate) 325 Mg Tab 325 MG PO DAILY Nutritional Supplement #30 Ref 0 TAB Folic Acid (Folic Acid) 400 Mcg Tab 400 MCG PO DAILY Nutritional Supplement Ref 0 TAB Magnesium Hydroxide Liq (Milk of Magnesia Liq) 400 Mg/5 Ml Susp 30 ML PO DAILY PRN INDIGESTION OR UPSET STOMACH #1 Ref 0 BOTTLE Pantoprazole (Protonix) 40 Mg Tab 40 MG PO DAILY Reflux #30 Ref 0 TAB Trazodone (Trazodone) 50 Mg Tab 25 MG PO HS Control Depression #30 Ref 0 TAB Valproic Acid (Valproic Acid) 250 Mg Cap 250 MG PO HS #60 Ref 0 CAP Discontinued Medications: Bethanechol (Bethanechol) 25 Mg Tab 25 MG PO Q8HR Urinary Symptom Managemen Ref 0 TAB Calcium Carbonate (Antacid) (Tums) 500 Mg Chew 500 MG CHEW Q6HR PRN HEARTBURN Ref 0 TAB Meloxicam (Meloxicam) 15 Mg Tab 15 MG PO DAILY Arthritis Pain #30 Ref 0 TAB Oxybutynin (Ditropan) 5 Mg Tab 5 MG PO Q8HR Urinary Symptom Managemen #90 Ref 0 TAB Additional Information Patient will be followed by Dr. Crespo Will need a anemia panel in AM. Will also need stool for occult blood ordered X 3 Sarina Wheeler Jun 11, 2016 12:07
== END 2016-06-11 13:28 | DRG 641 ==
LOC: NEDAMB 13:42 → NEDA 20:56 → NEDH 06-07 00:56 → N04B 06-07 13:45
PROVIDERS: ADMIT Family Medicine; ATTEND Family Medicine
DX: E83.52 Hypercalcemia (principal); N17.9 Acute kidney failure, unspecified; E87.2 Acidosis; R41.82 Altered mental status, unspecified; F03.90 Unspecified dementia, unspecified severity, without behavioral disturbance, psychotic disturbance, mood disturbance, and anxiety; J44.9 Chronic obstructive pulmonary disease, unspecified; D72.829 Elevated white blood cell count, unspecified; K21.9 Gastro-esophageal reflux disease without esophagitis; I10 Essential (primary) hypertension; I25.10 Atherosclerotic heart disease of native coronary artery without angina pectoris; E86.0 Dehydration; Z86.73 Personal history of transient ischemic attack (TIA), and cerebral infarction without residual deficits; I25.2 Old myocardial infarction; Z87.891 Personal history of nicotine dependence
CPT/HCPCS: 70450; 71010; 80048; 80053; 80307; 80320; 81001; 82140; 82306; 82397; 82550; 82552; 83605; 83735; 83970; 84100; 84155; 84484; 85025; 85027; 85610; 85730; 87040; 93005; 96365; J2543; J7030; P9612

== ENCOUNTER 2017-07-10 18:50 | Inpatient (IN) | payer MEDICARE, OTHER ==
[~2017-07-10] VITALS: Ht 163.8 cm; Wt 80.1 kg
[~2017-07-10 18:50] MED LIST changes: -ALBU1AER INH; -ARIC5TAB PO; +ATOR20TA15 PO; -ATOR20TA42 PO; -BETH25 PO; +CHOL5000 PO; +COLA100C3 PO; -DOCU1CAP39 PO; +DONE10TA7 PO; +DULC10SU3 RECTAL; +EXTR500C PO; -FERR324T4 PO; +FERR325T PO; -FOLI1TAB PO; +FOLI400T PO; -MELO15 PO; +MILKSUS PO; -OXYB5TAB PO; -PANT20 PO; +POTA20TA5 PO; +PROT40TA PO; +TRAZ50TA12 PO; -TRAZ50TA4 PO; -TYLE500T PO; -VALP250 PO; +VALP250C PO
--- NOTE | 2017-07-10 19:14 | PD ---
HPI Chief Complaint: abnl labs Time Seen by Provider: 19:05 Travel History International Travel<30 days: No Contact w/Intl Traveler<30days: No Traveled to known affect area: No History of Present Illness [facility] 71 [facility] sent for "abnormal labs" particularly calcium of 12?.....patient denies any actual symptoms or complaints. denies any franklin/visual changes/n/v/d/cp/abdpain/backpain. Patient denies any alleviating or aggravating factors. all:meselamine/bismuth pcp? pmhx:dementia, bipolar, anemia, htn, hyperchol, copd, urinary retention and specifically NO renal history and had normal renal cr//gfr based on 2017 [facility] Past Medical History Bipolar Disorder: Yes Anxiety: Yes Depression: Yes High Cholesterol: Yes COPD: Yes Cerebrovascular Accident: Yes Dementia: Yes Diminished Hearing: No Endocrine: No (unknown) GERD: Yes Hypertension: Yes Immune Disorder: No (unknown) Implanted Vascular Access Dvce: No Insomnia: Yes Musculoskeletal: No (unknown) Respiratory: Yes (copd) Myocardial Infarction: Yes Menopausal: Yes Past Surgical History Hysterectomy: Yes Pacemaker: No Other Surgery: Yes (hysetrectomy) Social History Alcohol Use: No Tobacco Use: Yes Substance Use: No Allergies-Medications (Allergen,Severity, Reaction): Coded Allergies: bismuth subsalicylate (Unverified Allergy, Unknown, 07/10/17) mesalamine (Unverified Allergy, Unknown, 07/10/17) Reported Meds & Prescriptions Reported Meds & Active Scripts Active Potassium Chloride Microencaps 20 Meq Tab 20 Meq PO DAILY Vitamin D3 (Cholecalciferol) 5,000 Unit Cap 5,000 Units PO DAILY Reported Zolpidem (Zolpidem Tartrate) 10 Mg Tab 10 Mg PO HS PRN Ditropan (Oxybutynin Chloride) 5 Mg Tab 10 Mg PO DAILY Omeprazole 20 Mg Tab 20 Mg PO DAILY Ferrous Sulfate 325 Mg (65 Mg Iron) Tablet 325 Mg PO DAILY Valproic Acid 250 Mg Cap 250 Mg PO HS Trazodone (Trazodone HCl) 50 Mg Tab 25 Mg PO HS Milk of Magnesia Liq (Magnesium Hydroxide) 400 Mg/5 Ml Susp 30 Ml PO DAILY PRN Folic Acid 400 Mcg Tab 400 Mcg PO DAILY Dulcolax Supp (Bisacodyl) 10 Mg Supp 10 Mg RECTAL DAILY PRN Donepezil 10 Mg Tab 10 Mg PO HS Atorvastatin (Atorvastatin Calcium) 20 Mg Tab 20 Mg PO HS Review of Systems Except as stated in HPI: all other systems reviewed are Neg Physical Exam Narrative GENERAL: SKIN: Warm and dry. HEAD: Atraumatic. Normocephalic. EYES: Pupils equal and round. No scleral icterus. No injection or drainage. ENT: No nasal bleeding or discharge. Mucous membranes pink and moist. NECK: Trachea midline. No JVD. CARDIOVASCULAR: Regular rate and rhythm. RESPIRATORY: No accessory muscle use. Clear to auscultation. Breath sounds equal bilaterally. GASTROINTESTINAL: Abdomen soft, non-tender, nondistended. MUSCULOSKELETAL: Extremities without clubbing, cyanosis, or edema. No obvious deformities. NEUROLOGICAL: Awake and alert. No obvious cranial nerve deficits. Motor grossly within normal limits. Five out of 5 muscle strength in the arms and legs. Normal speech. PSYCHIATRIC: Appropriate mood and affect; insight and judgment normal. Data Data Last Documented VS Vital Signs Date Time Temp Pulse Resp B/P (MAP) Pulse Ox O2 Delivery O2 Flow Rate FiO2 07/10/17 19:37 28 91 Nasal Cannula 2.00 07/10/17 19:34 98.6 111 106/51 (69) Orders Orders Electrocardiogram (07/10/17 19:05) Complete Blood Count With Diff (07/10/17 19:05) Comprehensive Metabolic Panel (07/10/17 19:05) Troponin I (07/10/17 19:05) Prothrombin Time / Inr (Pt) (07/10/17 19:05) Act Partial Throm Time (Ptt) (07/10/17 19:05) Lipase (07/10/17 19:05) Thyroid Stimulating Hormone (07/10/17 19:05) Chest, Single Ap (07/10/17 19:05) Iv Access Insert/Monitor (07/10/17 19:05) Ecg Monitoring (07/10/17 19:05) Oximetry (07/10/17 19:05) Orthostatic Vital Signs (07/10/17 19:05) Admit Order (Ed Use Only) (07/10/17 21:11) Labs Laboratory Tests Test 07/10/17 19:30 White Blood Count 14.8 TH/MM3 Red Blood Count 5.26 MIL/MM3 Hemoglobin 15.1 GM/DL Hematocrit 44.2 % Mean Corpuscular Volume 84.0 FL Mean Corpuscular Hemoglobin 28.7 PG Mean Corpuscular Hemoglobin Concent 34.2 % Red Cell Distribution Width 16.3 % Platelet Count 233 TH/MM3 Mean Platelet Volume 9.4 FL Neutrophils (%) (Auto) 81.6 % Lymphocytes (%) (Auto) 8.1 % Monocytes (%) (Auto) 9.8 % Eosinophils (%) (Auto) 0.2 % Basophils (%) (Auto) 0.3 % Neutrophils # (Auto) 12.1 TH/MM3 Lymphocytes # (Auto) 1.2 TH/MM3 Monocytes # (Auto) 1.4 TH/MM3 Eosinophils # (Auto) 0.0 TH/MM3 Basophils # (Auto) 0.0 TH/MM3 CBC Comment DIFF FINAL Differential Comment Prothrombin Time 10.2 SEC Prothromb Time International Ratio 1.0 RATIO Activated Partial Thromboplast Time 21.2 SEC Blood Urea Nitrogen 107 MG/DL Creatinine 2.20 MG/DL Random Glucose 106 MG/DL Total Protein 6.9 GM/DL Albumin 3.4 GM/DL Calcium Level 12.1 MG/DL Alkaline Phosphatase 65 U/L Aspartate Amino Transf (AST/SGOT) 63 U/L Alanine Aminotransferase (ALT/SGPT) 19 U/L Total Bilirubin 0.6 MG/DL Sodium Level 134 MEQ/L Potassium Level 4.0 MEQ/L Chloride Level 92 MEQ/L Carbon Dioxide Level 31.3 MEQ/L Anion Gap 11 MEQ/L Estimat Glomerular Filtration Rate 22 ML/MIN Protein Corrected Calcium 12.3 MG/DL Troponin I LESS THAN 0.02 NG/ML Lipase 119 U/L Thyroid Stimulating Hormone 3rd Gen 1.140 uIU/ML [facility] Medical Decision Making Medical Screen Exam Complete: Yes Emergency Medical Condition: Yes Medical Record Reviewed: Yes Interpretation(s) ekg sinus tachy 116, motion artifac with wandering baseline, but no stemi pattern noted. Differential Diagnosis DEHYDRATION V ELECTROLYTE ABNL V ACUTE RENAL FAILURE Narrative Course Patient CBC shows no anemia reactive leukocytosis, coagulation profile is within normal limits. Complete metabolic profile shows several abnormalities. Prerenal azotemia with a BUN of 107 and creatinine of 2.20 of note patient's last creatinine in 2017 was normal and her last GFR was also normal whereas today it is a GFR of 22. Patient also has elevated calcium and corrected calcium of 12.3. First set of cardiac enzymes are negative first set of TSH is within normal limits lipase is also within normal limits LFTs are within normal limits as well...Chest x-ray as read by radiologist does not show any acute cardiopulmonary disease. Diagnosis Primary Impression: Dehydration Additional Impressions: Prerenal azotemia Hypercalcemia Admitting Information Admitting Physician Requests: Observation Lawrence Vernon MD Jul 10, 2017 19:14
[2017-07-10 19:34] VITALS: BP 106/51; PULSE 111; RESP 24; TEMP 98.6; O2SAT 91
[2017-07-10 20:00] VITALS: BP 114/70; PULSE 104; RESP 24; O2SAT 92
[2017-07-10 20:06] LABS: AUTOMATED NEUTROPHIL # 12.1 TH/MM3 (1.8-7.7); BASOPHIL % 0.3 % (0.0-2.0); EOSINOPHIL % 0.2 % (0.0-4.0); HEMATOCRIT 44.2 % (35.0-46.0); HEMOGLOBIN 15.1 GM/DL (11.6-15.3); LYMPH % 8.1 % (9.0-44.0); LYMPHOCYTE # 1.2 TH/MM3 (1.0-4.8); MEAN CORPUSCULAR HEMOGLOBIN 28.7 PG (27.0-34.0); MEAN CORPUSCULAR HGB CONC 34.2 % (32.0-36.0); MEAN PLATELET VOLUME 9.4 FL (7.0-11.0); MONO % 9.8 % (0.0-8.0); MONOCYTE # 1.4 TH/MM3 (0-0.9); NEUT % 81.6 % (16.0-70.0); PLATELET COUNT 233 TH/MM3 (150-450); RED BLOOD COUNT 5.26 MIL/MM3 (4.00-5.30); RED CELL DISTRIBUTION WIDTH 16.3 % (11.6-17.2); WHITE BLOOD COUNT 14.8 TH/MM3 (4.0-11.0)
--- NOTE | 2017-07-10 20:08 | RADRPT ---
EXAM DATE/TIME: 07/10/2017 19:29 [place] COMPARISON: CHEST SINGLE AP, June 06, 2016, 14:51. INDICATIONS : Cough. MEDICAL HISTORY : Cerebrovascular disease. Hypertension. Dementia. SURGICAL HISTORY : None. ENCOUNTER: Initial ACUITY: 1 day PAIN SCORE: 0/10 LOCATION: Bilateral chest FINDINGS: The lungs are clear without infiltrate, nodule, or mass. There is no appreciable pleural effusion fo r technique. Heart and mediastinum are unremarkable. Hiatal hernia may be present. CONCLUSION: No acute cardiopulmonary disease. Jannet Monique MD on July 10, 2017 at 20:06 Board Certified Radiologist. This report was verified electronically.
[2017-07-10 20:18] LABS: PROTHROMBIN TIME - PATIENT 10.2 SEC (9.8-11.6)
[2017-07-10 20:23] LABS: ALBUMIN 3.4 GM/DL (3.4-5.0); AST (GOT) 63 U/L (15-37); BICARBONATE 31.3 MEQ/L (21.0-32.0); BLOOD UREA NITROGEN 107 MG/DL (7-18); CALCIUM 12.1 MG/DL (8.5-10.1); CHLORIDE 92 MEQ/L (98-107); GLOMERULAR FILTRATION RATE 22 ML/MIN (>89); GLUCOSE,RANDOM 106 MG/DL (74-106); SODIUM (NA) 134 MEQ/L (136-145)
[2017-07-10 20:28] LABS: ALKALINE PHOSPHATASE 65 U/L (45-117); ALT (GPT) 19 U/L (10-53); TOTAL BILIRUBIN ADULT 0.6 MG/DL (0.2-1.0); TOTAL PROTEIN 6.9 GM/DL (6.4-8.2); TROPONIN I LESS THAN 0.02 NG/ML (0.02-0.05)
[2017-07-10 20:31] LABS: CALCIUM-PROTEIN CORRECTED 12.3 MG/DL (8.5-10.1)
[2017-07-10 21:00] VITALS: BP 118/67; PULSE 107; RESP 28; O2SAT 93
[2017-07-10] MEDS ORDERED: FERR325T18 PO (21:05)
[2017-07-10] MEDS ORDERED: OMEP20TA93 PO (21:05)
[2017-07-10] MEDS ORDERED: OXYB5TAB8 PO (21:05)
[2017-07-10] MEDS ORDERED: ZOLP10TA3 PO (21:05)
[2017-07-10] MEDS ORDERED: SENNOSIDES 8.6 MG TAB PO PRN (21:45)
[2017-07-10] MEDS ORDERED: MAGNESIUM HYDROXIDE SUSP 30 ML CUP PO PRN (21:45)
[2017-07-10] MEDS ORDERED: BISACODYL 10 MG SUPP RECTAL PRN (21:45)
[2017-07-10] MEDS ORDERED: SODIUM CHLORIDE 0.9% FLUSH 10 ML FLUSH IV FLUSH PRN (21:45)
[2017-07-10] MEDS ORDERED: ACETAMINOPHEN 325 MG TAB PO PRN (21:45)
[2017-07-10] MEDS ORDERED: NALOXONE HCL 0.4 MG/ML AMP IV PUSH PRN (21:45)
[2017-07-10] MEDS ORDERED: ONDANSETRON HCL 4 MG/2 ML VIAL IVP PRN (21:45)
[2017-07-10] MEDS ORDERED: LACTULOSE SYRUP 20 GM/30 ML CUP PO PRN (21:45)
[2017-07-10 22:00] VITALS: BP 102/60; PULSE 106; RESP 30; O2SAT 94
[2017-07-10] MEDS: SODIUM CHLOR 0.9% 1000 ML INJ 1,000 ML IV SCH (23:02)
[2017-07-10 23:10] VITALS: BP 115/52; PULSE 109; RESP 18; RESP 20; TEMP 97.6; O2SAT 94
[2017-07-11] VITALS (7 sets, daily range): BP systolic 97–124; BP diastolic 62–73; PULSE 76–117; RESP 17–19; TEMP 97.4–98.7; O2SAT 91–96
[2017-07-11 05:27] LABS: BASOPHIL % 0.2 % (0.0-2.0); EOSINOPHIL % 0.1 % (0.0-4.0); HEMATOCRIT 42.7 % (35.0-46.0); HEMOGLOBIN 14.4 GM/DL (11.6-15.3); LYMPHOCYTE # 1.2 TH/MM3 (1.0-4.8); MEAN CELL VOLUME 85.3 FL (80.0-100.0); MEAN CORPUSCULAR HEMOGLOBIN 28.7 PG (27.0-34.0); MEAN CORPUSCULAR HGB CONC 33.7 % (32.0-36.0); MEAN PLATELET VOLUME 9.3 FL (7.0-11.0); MONO % 9.9 % (0.0-8.0); NEUT % 77.8 % (16.0-70.0); PLATELET COUNT 219 TH/MM3 (150-450); RED BLOOD COUNT 5.01 MIL/MM3 (4.00-5.30); RED CELL DISTRIBUTION WIDTH 16.5 % (11.6-17.2); WHITE BLOOD COUNT 10.3 TH/MM3 (4.0-11.0)
[2017-07-11 05:35] LABS: BICARBONATE 29.8 MEQ/L (21.0-32.0); CALCIUM 11.5 MG/DL (8.5-10.1); CREATININE 1.94 MG/DL (0.50-1.00)
[2017-07-11] MEDS: SODIUM CHLOR 0.9% 1000 ML INJ 1,000 ML IV SCH ×2 (08:47→17:35)
[2017-07-11] MEDS: FERROUS SULFATE 325 MG (65 MG ELEMENTAL IRON) TAB PO SCH (08:47)
[2017-07-11] MEDS: SODIUM CHLORIDE 0.9% FLUSH 10 ML FLUSH IV FLUSH SCH ×2 (08:47→21:00)
[2017-07-11] MEDS: FOLIC ACID 1 MG TAB PO SCH (08:47)
[2017-07-11] MEDS: DOCUSATE SODIUM 50 MG/SENNA 8.6 MG TAB PO SCH ×2 (08:47→21:00)
[2017-07-11] MEDS: PANTOPRAZOLE SOD 20 MG DELAYED RELEASE TAB PO SCH (08:47)
--- NOTE | 2017-07-11 08:54 | PD.CONS ---
HPI Service Nephrology Consult Requested By Arturo FROST Reason for Consult LIBORIO Primary Care Physician Nick Lucero MD History of Present Illness Patient is a 71 yo female from [facility] sent for to ER for evaluation for abnormal labs. Patient has a past medical history of dementia, bipolar, anemia, htn, HLD, and COPD. Patient was found to have calcuim level of 12.3 on admission which with this morning labs and IV hydration are down to 11.5. She was also found to have LIBORIO with a creatinine on admission of 2.20 and GFR of 22ml/min. Her baseline creatinine in 06/12 was 0.86. Denies any nausea, vomiting, or diarrhea. (Sarina Wheeler) Review of Systems Constitutional: DENIES: Fatigue Cardiovascular: DENIES: Chest pain, Palpitations, Lower Extremity Edema Gastrointestinal: DENIES: Abdominal pain, Constipation, Diarrhea, Nausea, Vomiting Psychiatric: DENIES: Anxiety, Depression (Sarina Wheeler) Past Family Social History Allergies: Coded Allergies: bismuth subsalicylate (Unverified Allergy, Unknown, 07/10/17) mesalamine (Unverified Allergy, Unknown, 07/10/17) Past Medical History Dementia Bipolar Anemia HTN HLD COPD Past Surgical History Hysterectomy Active Ordered Medications Current Medications Medications (Trade) Dose Ordered Sig/Amadou Route Start Time Stop Time Status Last Admin Sodium Chloride 1,000 ml @ 100 mls/hr Q10H IV 07/10/17 21:35 07/10/17 23:02 (NS Flush) 2 ml UNSCH PRN IV FLUSH 07/10/17 21:45 (NS Flush) 2 ml BID IV FLUSH 07/11/17 09:00 (Tylenol) 650 mg Q4H PRN PO 07/10/17 21:45 (Zofran Inj) 4 mg Q6H PRN IVP 07/10/17 21:45 (Heparin Inj) 5,000 units Q12H SQ 07/10/17 23:00 (Narcan Inj) 0.4 mg UNSCH PRN IV PUSH 07/10/17 21:45 (Ashlyn-Colace) 1 tab BID PO 07/11/17 09:00 (Milk Of Magnesia Liq) 30 ml Q12H PRN PO 2/14/18 21:45 (Senokot) 17.2 mg Q12H PRN PO 07/10/17 21:45 (Dulcolax Supp) 10 mg DAILY PRN RECTAL 07/10/17 21:45 (Lactulose Liq) 30 ml DAILY PRN PO 07/10/17 21:45 (Lipitor) 20 mg HS PO 07/11/17 21:00 (Aricept) 10 mg HS PO 07/11/17 21:00 (Ferrous Sulfate) 325 mg DAILY PO 07/11/17 09:00 (Folate) 0.4 mg DAILY PO 07/11/17 09:00 (Desyrel) 25 mg HS PO 07/11/17 21:00 (Depakene) 250 mg HS PO 07/11/17 21:00 (Protonix) 20 mg DAILY PO 07/11/17 09:00 Family History Unable to obtain Social History Smokes 1 pk daily No ETOH (Sarina Wheeler) Physical Exam Vital Signs Vital Signs Date Time Temp Pulse Resp B/P (MAP) Pulse Ox O2 Delivery O2 Flow Rate FiO2 07/11/17 08:00 98.0 117 18 113/65 (81) 93 07/11/17 04:00 97.4 110 19 104/62 (76) 93 07/10/17 23:10 97.6 109 20 115/52 (73) 94 07/10/17 22:00 106 30 102/60 (74) 94 Nasal Cannula 2.00 07/10/17 21:00 107 28 118/67 (84) 93 Nasal Cannula 2.00 07/10/17 20:00 104 24 114/70 (85) 92 Nasal Cannula 2.00 07/10/17 19:37 28 91 Nasal Cannula 2.00 07/10/17 19:34 98.6 111 24 106/51 (69) 91 Physical Exam GENERAL: Alert not oriented SKIN: Warm and dry. HEAD: Normocephalic. EYES: No scleral icterus. No injection or drainage. NECK: Supple, trachea midline. No JVD or lymphadenopathy. CARDIOVASCULAR: Regular rate and rhythm without murmurs, gallops, or rubs. RESPIRATORY: Breath sounds equal bilaterally. No accessory muscle use. GASTROINTESTINAL: Abdomen soft, non-tender, nondistended. MUSCULOSKELETAL: No cyanosis, or edema. BACK: Nontender without obvious deformity. No CVA tenderness. Laboratory Laboratory Tests Test 07/10/17 19:30 07/11/17 03:30 White Blood Count 14.8 10.3 Red Blood Count 5.26 5.01 Hemoglobin 15.1 14.4 Hematocrit 44.2 42.7 Mean Corpuscular Volume 84.0 85.3 Mean Corpuscular Hemoglobin 28.7 28.7 Mean Corpuscular Hemoglobin Concent 34.2 33.7 Red Cell Distribution Width 16.3 16.5 Platelet Count 233 219 Mean Platelet Volume 9.4 9.3 Neutrophils (%) (Auto) 81.6 77.8 Lymphocytes (%) (Auto) 8.1 12.0 Monocytes (%) (Auto) 9.8 9.9 Eosinophils (%) (Auto) 0.2 0.1 Basophils (%) (Auto) 0.3 0.2 Neutrophils # (Auto) 12.1 8.0 Lymphocytes # (Auto) 1.2 1.2 Monocytes # (Auto) 1.4 1.0 Eosinophils # (Auto) 0.0 0.0 Basophils # (Auto) 0.0 0.0 CBC Comment DIFF FINAL DIFF FINAL Differential Comment Prothrombin Time 10.2 Prothromb Time International Ratio 1.0 Activated Partial Thromboplast Time 21.2 Blood Urea Nitrogen 107 108 Creatinine 2.20 1.94 Random Glucose 106 107 Total Protein 6.9 Albumin 3.4 Calcium Level 12.1 11.5 Alkaline Phosphatase 65 Aspartate Amino Transf (AST/SGOT) 63 Alanine Aminotransferase (ALT/SGPT) 19 Total Bilirubin 0.6 Sodium Level 134 137 Potassium Level 4.0 3.6 Chloride Level 92 98 Carbon Dioxide Level 31.3 29.8 Anion Gap 11 9 Estimat Glomerular Filtration Rate 22 26 Protein Corrected Calcium 12.3 Troponin I LESS THAN 0.02 Lipase 119 Thyroid Stimulating Hormone 3rd Gen 1.140 (Sarina Wheeler) Result Diagram: 07/11/17 0330 07/11/17 0330 Imaging Last Impressions Chest X-Ray 07/10/17 190 Signed Impressions: Service Date/Time: Monday, July 10, 2017 19:29 - CONCLUSION: No acute cardiopulmonary disease. Jannet Monique MD (Sarina Wheeler) Assessment and Plan Problem List: (1) Prerenal azotemia ICD Codes: R79.89 - Other specified abnormal findings of blood chemistry Status: Acute Plan: Patient creatinine is improving from 2.20 to 1.94 with hydration. LIBORIO most likely from prerenal azotemia from dehydration Unable to get accurate history with AMS But will continue IVF UA and C+S ordered Maintain strict I+O Avoid nephrotoxins. Patient is also noted to have hypercalemia which has also improved with hydration. Hypercalemia was also noted on previous admission and it was from tums ingestion. Will continue to hold vitamin D Obtain PTH and PTH peptide level (2) Hypercalcemia ICD Codes: E83.52 - Hypercalcemia Status: Acute (Sarina Wheeler) Problem List: (1) Prerenal azotemia ICD Codes: R79.89 - Other specified abnormal findings of blood chemistry Status: Acute Plan: Patient creatinine is improving from 2.20 to 1.94 with hydration. LIBORIO most likely from prerenal azotemia from dehydration Unable to get accurate history with AMS But will continue IVF UA and C+S ordered Maintain strict I+O Avoid nephrotoxins. Patient is also noted to have hypercalemia which has also improved with hydration. Hypercalcemia was also noted on previous admission and it was from tums ingestion. Will continue to hold vitamin D Obtain PTH and SPEP also. Patient seen and examined, agree with above. (2) Hypercalcemia ICD Codes: E83.52 - Hypercalcemia Status: Acute (Neena Zheng MD) Sarina Wheeler Jul 11, 2017 08:54 Neena Zheng MD Jul 11, 2017 19:05
[2017-07-11] MEDS ORDERED: RESP: ALBUTEROL 2.5 MG/IPRATROPIUM 0.5 MG NEB (PRN) NEB (10:00)
[2017-07-11] MEDS: HEPARIN SODIUM - SQ 10,000 UNITS/ML VIAL SQ SCH ×2 (12:02→21:50)
--- NOTE | 2017-07-11 16:23 | EKG ---
Date Performed: 07/10/2017 Time Performed: 19:20:16 PTAGE: 71 years EKG: SINUS TACHYCARDIA WITH FREQUENT SUPRAVENTRICULAR PREMATURE COMPLEXES POSSIBLE RIGHT ATRIAL ENLARGEMENT ECTOPY IS NEW SINCE PRIOR TRACING NONSPECIFIC ST CHANGES ALSO NOTED Clinical correlation is recommended ABNORMAL RHYTHM ECG PREVIOUS TRACING : 06/06/2016 17.51 DOCTOR: John Price Interpretating Date/Time 07/11/2017 16:21:41
--- NOTE | 2017-07-11 16:40 | HHI.HP ---
History of Present Illness Primary Care Physician Nick Lucero MD Admission Diagnosis PRERENAL AZOTEMIA, HYPERCALCEMIA Diagnoses: (1) Prerenal azotemia (2) Hypercalcemia History of Present Illness 71 y/[facility]. She denies any associated factors,denies recent Vomiting, Diarrhea, voices she feels fine. She does have hx of dementia, answers appropriately. Review of Systems Respiratory: COMPLAINS OF: Shortness of breath Psychiatric: COMPLAINS OF: Anxiety Except as stated in HPI: all other systems reviewed are Neg Past Family Social History Allergies: Coded Allergies: bismuth subsalicylate (Unverified Allergy, Unknown, 07/10/17) mesalamine (Unverified Allergy, Unknown, 07/10/17) Past Medical History Copd Dementia HLD Depression Anxiety Gerd Past Surgical History Hysterectomy Reported Medications zolpidem (Zolpidem Tartrate) 10 Mg Tab 10 Mg PO HS PRN Ditropan (Oxybutynin Chloride) 5 Mg Tab 10 Mg PO DAILY Omeprazole 20 Mg Tab 20 Mg PO DAILY Ferrous Sulfate 325 Mg (65 Mg Iron) Tablet 325 Mg PO DAILY Valproic Acid 250 Mg Cap 250 Mg PO HS Trazodone (Trazodone HCl) 50 Mg Tab 25 Mg PO HS Milk of Magnesia Liq (Magnesium Hydroxide) 400 Mg/5 Ml Susp 30 Ml PO DAILY PRN Folic Acid 400 Mcg Tab 400 Mcg PO DAILY Dulcolax Supp (Bisacodyl) 10 Mg Supp 10 Mg RECTAL DAILY PRN Donepezil 10 Mg Tab 10 Mg PO HS Atorvastatin (Atorvastatin Calcium) 20 Mg Tab 20 Mg PO HS Active Ordered Medications Current Medications Medications (Trade) Dose Ordered Sig/Amadou Route Start Time Stop Time Status Last Admin Sodium Chloride 1,000 ml @ 100 mls/hr Q10H IV 07/10/17 21:35 07/11/17 08:47 (NS Flush) 2 ml UNSCH PRN IV FLUSH 07/10/17 21:45 (NS Flush) 2 ml BID IV FLUSH 07/11/17 09:00 (Tylenol) 650 mg Q4H PRN PO 07/10/17 21:45 (Zofran Inj) 4 mg Q6H PRN IVP 07/10/17 21:45 (Heparin Inj) 5,000 units Q12H SQ 07/10/17 23:00 07/11/17 12:02 (Narcan Inj) 0.4 mg UNSCH PRN IV PUSH 07/10/17 21:45 (Ashlyn-Colace) 1 tab BID PO 07/11/17 09:00 07/11/17 08:47 (Milk Of Magnesia Liq) 30 ml Q12H PRN PO 07/10/17 21:45 (Senokot) 17.2 mg Q12H PRN PO 07/10/17 21:45 (Dulcolax Supp) 10 mg DAILY PRN RECTAL 07/10/17 21:45 (Lactulose Liq) 30 ml DAILY PRN PO 07/10/17 21:45 (Lipitor) 20 mg HS PO 07/11/17 21:00 (Aricept) 10 mg HS PO 07/11/17 21:00 (Ferrous Sulfate) 325 mg DAILY PO 07/11/17 09:00 07/11/17 08:47 (Folate) 0.4 mg DAILY PO 07/11/17 09:00 07/11/17 08:47 (Desyrel) 25 mg HS PO 07/11/17 21:00 (Depakene) 250 mg HS PO 07/11/17 21:00 (Protonix) 20 mg DAILY PO 07/11/17 09:00 07/11/17 08:47 (Duoneb Neb) 1 ampule Q6HR NEB PRN NEB 07/11/17 10:00 Family History unknown Social History Denies ETOH Daily Smoker Physical Exam Vital Signs Vital Signs Date Time Temp Pulse Resp B/P (MAP) Pulse Ox O2 Delivery O2 Flow Rate FiO2 07/11/17 12:04 98.5 107 17 124/73 (90) 96 07/11/17 12:00 117 07/11/17 08:00 98.0 117 18 113/65 (81) 93 07/11/17 04:00 97.4 110 19 104/62 (76) 93 07/10/17 23:10 97.6 109 20 115/52 (73) 94 07/10/17 22:00 106 30 102/60 (74) 94 Nasal Cannula 2.00 07/10/17 21:00 107 28 118/67 (84) 93 Nasal Cannula 2.00 07/10/17 20:00 104 24 114/70 (85) 92 Nasal Cannula 2.00 07/10/17 19:37 28 91 Nasal Cannula 2.00 07/10/17 19:34 98.6 111 24 106/51 (69 91 Physical Exam GENERAL: This is a well-nourished no apparent distress in bed on O2 2liters SKIN: No rashes, ecchymoses or lesions. Cool and dry. HEAD: Atraumatic. Normocephalic. No temporal or scalp tenderness. EYES: Pupils equal round and reactive. Extraocular motions intact. No scleral icterus. No injection or drainage. ENT: Nose without bleeding, purulent drainage or septal hematoma. Throat without erythema, tonsillar hypertrophy or exudate. Uvula midline. Airway patent. NECK: Trachea midline. No JVD or lymphadenopathy. Supple, nontender, no meningeal signs. CARDIOVASCULAR: Regular rate and rhythm without murmurs, gallops, or rubs. RESPIRATORY: Breath sounds equal bilaterally. expiratory wheezes GASTROINTESTINAL: Abdomen soft, non-tender, nondistended. No hepato-splenomegaly , or palpable masses. No guarding. MUSCULOSKELETAL: Extremities without clubbing, cyanosis, or edema. No joint tenderness, effusion, or edema noted. No calf tenderness. Negative Homans sign bilaterally. NEUROLOGICAL: Awake and alert follows commands Laboratory Laboratory Tests Test 07/10/17 19:30 07/11/17 03:30 White Blood Count 14.8 10.3 Red Blood Count 5.26 5.01 Hemoglobin 15.1 14.4 Hematocrit 44.2 42.7 Mean Corpuscular Volume 84.0 85.3 Mean Corpuscular Hemoglobin 28.7 28.7 Mean Corpuscular Hemoglobin Concent 34.2 33.7 Red Cell Distribution Width 16.3 16.5 Platelet Count 233 219 Mean Platelet Volume 9.4 9.3 Neutrophils (%) (Auto) 81.6 77.8 Lymphocytes (%) (Auto) 8.1 12.0 Monocytes (%) (Auto) 9.8 9.9 Eosinophils (%) (Auto) 0.2 0.1 Basophils (%) (Auto) 0.3 0.2 Neutrophils # (Auto) 12.1 8.0 Lymphocytes # (Auto) 1.2 1.2 Monocytes # (Auto) 1.4 1.0 Eosinophils # (Auto) 0.0 0.0 Basophils # (Auto) 0.0 0.0 CBC Comment DIFF FINAL DIFF FINAL Differential Comment Prothrombin Time 10.2 Prothromb Time International Ratio 1.0 Activated Partial Thromboplast Time 21.2 Blood Urea Nitrogen 107 108 Creatinine 2.20 1.94 Random Glucose 106 107 Total Protein 6.9 Albumin 3.4 Calcium Level 12.1 11.5 Alkaline Phosphatase 65 Aspartate Amino Transf (AST/SGOT) 63 Alanine Aminotransferase (ALT/SGPT) 19 Total Bilirubin 0.6 Sodium Level 134 137 Potassium Level 4.0 3.6 Chloride Level 92 98 Carbon Dioxide Level 31.3 29.8 Anion Gap 11 9 Estimat Glomerular Filtration Rate 22 26 Protein Corrected Calcium 12.3 Troponin I LESS THAN 0.02 Lipase 119 Thyroid Stimulating Hormone 3rd Gen 1.140 Result Diagram: 07/11/170 07/11/17 0330 Imaging Last 24 hours Impressions Chest X-Ray 07/10/17 1905 Signed Impressions: Service Date/Time: Monday, July 10, 2017 19:29 - CONCLUSION: No acute cardiopulmonary disease. MD Savage Ayala VTE Risk Assessment Caprini VTE Risk Assessment: Mod/High Risk (score >= 2) Caprini Risk Assessment Model Point Value = 1 Point Value = 2 Point Value = 3 Point Value = 5 Age 41-60 Minor surgery BMI > 25 kg/m2 Swollen legs Varicose veins or History of unexplained or recurrent spontaneous Oral contraceptives or hormone replacement Sepsis (< 1 month) Serious lung disease, including pneumonia (< 1 month) Abnormal pulmonary function Acute myocardial infarction Congestive heart failure (< 1 month) History of inflammatory bowel disease Medical patient at bed rest Age 61-74 Arthroscopic surgery Major open surgery (> 45 min) Laparoscopic surgery (> 45 min) Malignancy Confined to bed (> 72 hours) Immobilizing plaster cast Central venous access Age >= 75 History of VTE Family history of VTE Factor V Leiden Prothrombin [id number] Lupus anticoagulant Anticardiolipin antibodies Elevated serum homocysteine Heparin-induced thrombocytopenia Other congenital or acquired thrombophilia Stroke (< 1 month) Elective arthroplasty Hip, pelvis, or leg fracture Acute spinal cord injury (< 1 month) Prophylaxis Regimen Total Risk Factor Score Risk Level Prophylaxis Regimen 0-1 Low Early ambulation 2 Moderate Order ONE of the following: *Sequential Compression Device (SCD) *Heparin 5000 units SQ BID 3-4 Higher Order ONE of the following medications: *Heparin 5000 units SQ TID *Enoxaparin/Lovenox 40 mg SQ daily (WT < 150 kg, CrCl > 30 mL/min) *Enoxaparin/Lovenox 30 mg SQ daily (WT < 150 kg, CrCl > 10-29 mL/min) *Enoxaparin/Lovenox 30 mg SQ BID (WT < 150 kg, CrCl > 30 mL/min) AND/OR *Sequential Compression Device (SCD) 5 or more Highest Order ONE of the following medications: *Heparin 5000 units SQ TID (Preferred with Epidurals) *Enoxaparin/Lovenox 40 mg SQ daily (WT < 150 kg, CrCl > 30 mL/min) *Enoxaparin/Lovenox 30 mg SQ daily (WT < 150 kg, CrCl > 10-29 mL/min) *Enoxaparin/Lovenox 30 mg SQ BID (WT < 150 kg, CrCl > 30 mL/min) AND *Sequential Compression Device (SCD) Assessment and Plan Problem List: (1) Prerenal azotemia ICD Codes: R79.89 - Other specified abnormal findings of blood chemistry Status: Acute Plan: Renal consult, monitor BMP, continue to Hydrate (2) Hypercalcemia ICD Codes: E83.52 - Hypercalcemia Status: Acute Plan: Calcium on admission 12.5, improved w/ hydration currently 11.5 Per old records Hyper calcium in past r/t ingestion of tums. Renal checking PTH. (3) Dehydration ICD Codes: E86.0 - Dehydration Status: Acute Plan: Cont IVF, monitor BMP (4) COPD (chronic obstructive pulmonary disease) ICD Codes: J44.9 - Chronic obstructive pulmonary disease, unspecified Status: Chronic Plan: Maintain sat's > 92%, Cynthia Dyer Jul 11, 2017 16:40
[2017-07-11] MEDS: VALPROIC ACID 250 MG CAP PO SCH (21:00)
[2017-07-11] MEDS: traZODone HCL 50 MG TAB PO SCH (21:00)
[2017-07-11] MEDS: ATORVASTATIN 20 MG TAB PO SCH (21:00)
[2017-07-11] MEDS: DONEPEZIL HCL 5 MG TAB PO SCH (21:00)
[2017-07-12] VITALS: BP 99/59; PULSE 106; PULSE 69; RESP 18; TEMP 98.1; O2SAT 92
[2017-07-12] MEDS: SODIUM CHLOR 0.9% 1000 ML INJ 1,000 ML IV SCH ×3 (03:54→23:13)
[2017-07-12 04:00] VITALS: BP 104/55; PULSE 93; PULSE 95; RESP 18; TEMP 97.9; O2SAT 93
--- NOTE | 2017-07-12 07:49 | HHI.PR ---
Objective Vital Signs Date Time Temp Pulse Resp B/P (MAP) Pulse Ox O2 Delivery O2 Flow Rate FiO2 07/12/17 04:00 95 07/12/17 04:00 97.9 93 18 104/55 (71) 93 07/12/17 00:00 106 07/12/17 00:00 98.1 69 18 99/59 (72) 92 07/11/17 20:00 97.9 76 18 97/62 (74) 91 07/11/17 19:30 100 07/11/17 16:21 98.7 87 17 108/62 (77) 92 07/11/17 12:04 98.5 107 17 124/73 (90) 96 07/11/17 12:00 117 07/11/17 08:00 98.0 117 18 113/65 (81) 93 I/O 07/11/17 07/11/17 07/11/17 07/12/17 07/12/17 07/12/17 07:00 15:00 23:00 07:00 15:00 23:00 Intake Total 771 ml 229 ml 720 ml 1000 ml Balance 771 ml 229 ml 720 ml 1000 ml Intake Oral 0 ml 720 ml IV Total 771 ml 229 ml 1000 ml # Voids 2 3 3 # Bowel Movements 0 Result Diagram: 07/11/17 0330 07/11/17 0330 Other Results Laboratory Tests Test 07/10/17 19:30 07/11/17 03:30 White Blood Count 14.8 TH/MM3 (4.0-11.0) Neutrophils (%) (Auto) 81.6 % (16.0-70.0) 77.8 % (16.0-70.0) Lymphocytes (%) (Auto) 8.1 % (9.0-44.0) Monocytes (%) (Auto) 9.8 % (0.0-8.0) 9.9 % (0.0-8.0) Neutrophils # (Auto) 12.1 TH/MM3 (1.8-7.7) 8.0 TH/MM3 (1.8-7.7) Monocytes # (Auto) 1.4 TH/MM3 (0-0.9) 1.0 TH/MM3 (0-0.9) Activated Partial Thromboplast Time 21.2 SEC (24.3-30.1) Blood Urea Nitrogen 107 MG/DL (7-18) 108 MG/DL (7-18) Creatinine 2.20 MG/DL (0.50-1.00) 1.94 MG/DL (0.50-1.00) Calcium Level 12.1 MG/DL (8.5-10.1) 11.5 MG/DL (8.5-10.1) Aspartate Amino Transf (AST/SGOT) 63 U/L (15-37) Sodium Level 134 MEQ/L (136-145) Chloride Level 92 MEQ/L (98-107) Estimat Glomerular Filtration Rate 22 ML/MIN (>89) 26 ML/MIN (>89) Protein Corrected Calcium 12.3 MG/DL (8.5-10.1) Troponin I LESS THAN 0.02 NG/ML Random Glucose 107 MG/DL (74-106) Objective Remarks GENERAL: Alert not oriented, follows commands SKIN: Warm and dry. HEAD: Normocephalic. EYES: No scleral icterus. No injection or drainage. NECK: Supple, trachea midline. No JVD or lymphadenopathy. CARDIOVASCULAR: Regular rate and rhythm without murmurs, gallops, or rubs. RESPIRATORY: Breath sounds equal bilaterally. No accessory muscle use. GASTROINTESTINAL: Abdomen soft, non-tender, nondistended. MUSCULOSKELETAL: No cyanosis, or edema. BACK: Nontender without obvious deformity. No CVA tenderness. Medications and IVs Current Medications Medications (Trade) Dose Ordered Sig/Amadou Route Start Time Stop Time Status Last Admin Sodium Chloride 1,000 ml @ 100 mls/hr Q10H IV 07/10/17 21:35 07/12/17 03:54 (NS Flush) 2 ml UNSCH PRN IV FLUSH 07/10/17 21:45 (NS Flush) 2 ml BID IV FLUSH 07/11/17 09:00 07/11/17 21:00 (Tylenol) 650 mg Q4H PRN PO 07/10/17 21:45 (Zofran Inj) 4 mg Q6H PRN IVP 07/10/17 21:45 (Heparin Inj) 5,000 units Q12H SQ 07/10/17 23:00 07/11/17 21:50 (Narcan Inj) 0.4 mg UNSCH PRN IV PUSH 07/10/17 21:45 (Ashlyn-Colace) 1 tab BID PO 07/11/17 09:00 07/11/17 21:00 (Milk Of Magnesia Liq) 30 ml Q12H PRN PO 07/10/17 21:45 (Senokot) 17.2 mg Q12H PRN PO 07/10/17 21:45 (Dulcolax Supp) 10 mg DAILY PRN RECTAL 07/10/17 21:45 (Lactulose Liq) 30 ml DAILY PRN PO 07/10/17 21:45 (Lipitor) 20 mg HS PO 07/11/17 21:00 07/11/17 21:00 (Aricept) 10 mg HS PO 07/11/17 21:00 07/11/17 21:00 (Ferrous Sulfate) 325 mg DAILY PO 07/11/17 09:00 07/11/17 08:47 (Folate) 0.4 mg DAILY PO 07/11/17 09:00 07/11/17 08:47 (Desyrel) 25 mg HS PO 07/11/17 21:00 07/11/17 21:00 (Depakene) 250 mg HS PO 07/11/17 21:00 07/11/17 21:00 (Protonix) 20 mg DAILY PO 07/11/17 09:00 07/11/17 08:47 (Duoneb Neb) 1 ampule Q6HR NEB PRN NEB 07/11/17 10:00 Assessment and Plan Problem List: (1) Prerenal azotemia ICD Codes: R79.89 - Other specified abnormal findings of blood chemistry Status: Acute Plan: Renal consult, monitor BMP, continue to Hydrate (2) Hypercalcemia ICD Codes: E83.52 - Hypercalcemia Status: Acute Plan: Calcium on admission 12.5, improved w/ hydration currently 11.5 Per old records Hyper calcium in past r/t ingestion of tums. Renal checking PTH. (3) Dehydration ICD Codes: E86.0 - Dehydration Status: Acute Plan: Cont IVF, monitor BMP (4) COPD (chronic obstructive pulmonary disease) ICD Codes: J44.9 - Chronic obstructive pulmonary disease, unspecified Status: Chronic Plan: Maintain sat's > 92%, NebCynthia Noel Jul 12, 2017 07:49
[2017-07-12 08:00] VITALS: BP_SYST 115; BP_SYST 129; BP_DIAS 63; BP_DIAS 65; PULSE 100; PULSE 108; PULSE 76; RESP 18; RESP 20; TEMP 97.3; O2SAT 90; O2SAT 98
[2017-07-12] MEDS: FOLIC ACID 1 MG TAB PO SCH (08:33)
[2017-07-12] MEDS: FERROUS SULFATE 325 MG (65 MG ELEMENTAL IRON) TAB PO SCH (08:33)
[2017-07-12] MEDS: PANTOPRAZOLE SOD 20 MG DELAYED RELEASE TAB PO SCH (08:34)
[2017-07-12] MEDS: DOCUSATE SODIUM 50 MG/SENNA 8.6 MG TAB PO SCH ×2 (08:34→20:55)
[2017-07-12] MEDS: SODIUM CHLORIDE 0.9% FLUSH 10 ML FLUSH IV FLUSH SCH ×2 (08:35→20:56)
[2017-07-12] MEDS: HEPARIN SODIUM - SQ 10,000 UNITS/ML VIAL SQ SCH ×2 (11:00→23:13)
[2017-07-12 12:00] VITALS: BP 95/65; PULSE 75; PULSE 95; RESP 20; TEMP 97.4; O2SAT 95
[2017-07-12 12:12] LABS: BICARBONATE 32.2 MEQ/L (21.0-32.0); CALCIUM 9.4 MG/DL (8.5-10.1); CREATININE 1.27 MG/DL (0.50-1.00)
--- NOTE | 2017-07-12 12:22 | HHI.NPPN ---
Subjective History of Present Illness Patient is a 71 [facility] sent for to ER for evaluation for abnormal labs. Patient has a past medical history of dementia, bipolar, anemia, htn, HLD, and COPD. Patient was found to have calcuim level of 12.3 on admission which with this morning labs and IV hydration are down to 11.5. She was also found to have LIBORIO with a creatinine on admission of 2.20 and GFR of 22ml/min. Her baseline creatinine in 06/12 was 0.86. Denies any nausea, vomiting, or diarrhea. Additional Remarks Resting comfortably. No SOB or edema. More alert this morning. (Sarina Wheeler) Review of Systems Respiratory Respiratory Remarks No SOB (Sarina Wheeler) Cardiovascular Cardiac Remarks No CP (Sarina Wheeler) Gastrointestinal GI Remarks No abdominal pain (Sarina Wheeler) Objective Data Data Vital Signs Date Time Temp Pulse Resp B/P (MAP) Pulse Ox O2 Delivery O2 Flow Rate FiO2 07/12/17 08:00 97.3 100 20 115/65 (82) 90 07/12/17 04:00 95 07/12/17 04:00 97.9 93 18 104/55 (71) 93 07/12/17 00:00 106 07/12/17 00:00 98.1 69 18 99/59 (72) 92 07/11/17 20:00 97.9 76 18 97/62 (74) 91 07/11/17 19:30 100 07/11/17 16:21 98.7 87 17 108/62 (77) 92 (Sarina Wheeler) -: 07/11/17 0330 07/12/17 1110 Imaging Last Impressions Chest X-Ray 07/10/17 1905 Signed Impressions: Service Date/Time: Monday, July 10, 2017 19:29 - CONCLUSION: No acute cardiopulmonary disease. Jannet Monique MD (Sarina Wheeler) Physical Exam General Appearance: Well Nourished, No Acute Distress, Comfortable (Sarina Wheeler) Pulmonary Resp Exam: Clear Bilaterally, Breath Sounds Equal, No Distress (Sarina Wheeler) Cardiology CV Exam: Regular, Normal Sinus Rhythm (Sarina Wheeler) Gastrointestinal/Abdomen GI Exam: Soft, Non-Tender, Bowel Sounds Present (Sarina Wheeler) Genitourinary Exam: Flank Non-Tender (Sarina Wheeler) Integumentary Skin Exam: Clear, Warm, Dry (Sarina Wheeler) Extremeties Extremities Exam: No Edema (Sarina Wheeler) Neurologic Neuro Exam: Alert, Awake, Oriented (Sarina Wheeler) Psychiatric Psych Exam: Appropriate Responses (Sarina Wheeler) Assessment/Plan Problem List: (1) Prerenal azotemia ICD Codes: R79.89 - Other specified abnormal findings of blood chemistry Status: Acute Plan: Patient creatinine is improving from 1.94 yesterday with hydration LIBORIO most likely from prerenal azotemia from dehydration UA and C+S ordered Maintain strict I+O Avoid nephrotoxins. Will continue to hold vitamin D Obtain PTH and SPEP Continue IVF Renal US ordered Labs are pending today Patient is much more alert today. (2) Hypercalcemia ICD Codes: E83.52 - Hypercalcemia Status: Acute (Sarina Wheeler) Problem List: (1) Prerenal azotemia ICD Codes: R79.89 - Other specified abnormal findings of blood chemistry Status: Acute Plan: Patient creatinine is improving from 1.94 yesterday with hydration LIBORIO most likely from prerenal azotemia from dehydration UA and C+S ordered Maintain strict I+O Avoid nephrotoxins. Will continue to hold vitamin D Obtain PTH and SPEP Continue IVF Renal US ordered Labs are pending today Patient is much more alert today. Patient seen and examined, agree with above. Creatinine improving, Calcium is better. SPEP and PTH are pending. (2) Hypercalcemia ICD Codes: E83.52 - Hypercalcemia Status: Acute (Neena Zheng MD) AmyandrewalanSarina TomyNydia FROST Jul 12, 2017 12:21 Neena Zheng MD Jul 12, 2017 21:03
--- NOTE | 2017-07-12 14:39 | RADRPT ---
EXAM DATE/TIME: 07/12/2017 13:41 [place] COMPARISON: US KIDNEY/RENAL/BLADDER, July 16, 2015, 12:51. INDICATIONS : Increased BUN/Creatnine. MEDICAL HISTORY : Hypertension. Myocardial infarction. Hypercholesterolemia. Glasses. Dementia. Anemia. COPD. Dyspnea. Gastroesophageal reflux disease. Anxiety. Bipolar disorder. SURGICAL HISTORY : Hysterectomy. ENCOUNTER: Subsequent ACUITY: 1 day PAIN SCORE: 1/10 LOCATION: Bilateral flank MEASUREMENTS: RIGHT KIDNEY: 11.0 x 4.2 x 4.8 cm LEFT KIDNEY: 9.5 x 5.6 x 7.1 cm FINDINGS: RIGHT KIDNEY: The kidney is normal in size. The renal cortex is echogenic. There is no hydronephrosis. LEFT KIDNEY: The kidney is normal in size. The renal cortex is echogenic. There is no hydronephrosis. BLADDER: Within normal limits given the degree of distension. CONCLUSION: 1. The kidneys are echogenic bilaterally suggesting underlying medical renal disease. 2. There are no findings to indicate renal obstruction. Andrea Evans MD on July 12, 2017 at 14:37 Board Certified Radiologist. This report was verified electronically.
[2017-07-12 16:00] VITALS: BP 149/71; PULSE 88; PULSE 93; RESP 20; TEMP 97.4; O2SAT 91
[2017-07-12 20:00] VITALS: BP 116/62; PULSE 83; PULSE 90; RESP 17; TEMP 98.3; O2SAT 92
[2017-07-12] MEDS: traZODone HCL 50 MG TAB PO SCH (20:55)
[2017-07-12] MEDS: ATORVASTATIN 20 MG TAB PO SCH (20:55)
[2017-07-12] MEDS: DONEPEZIL HCL 5 MG TAB PO SCH (20:55)
[2017-07-12] MEDS: VALPROIC ACID 250 MG CAP PO SCH (20:56)
[2017-07-12 22:47] LABS: ALB/GLOB RATIO (SPE) 1.23 (1.39-2.23)
[2017-07-13] VITALS (8 sets, daily range): BP systolic 91–130; BP diastolic 50–66; PULSE 70–103; RESP 16–22; TEMP 97.3–98.3; O2SAT 92–96
[2017-07-13] MEDS: SODIUM CHLORIDE 0.9% FLUSH 10 ML FLUSH IV FLUSH SCH ×2 (09:00→20:30)
[2017-07-13] MEDS: DOCUSATE SODIUM 50 MG/SENNA 8.6 MG TAB PO SCH ×2 (09:06→20:26)
[2017-07-13] MEDS: FOLIC ACID 1 MG TAB PO SCH (09:06)
[2017-07-13] MEDS: PANTOPRAZOLE SOD 20 MG DELAYED RELEASE TAB PO SCH (09:06)
[2017-07-13] MEDS: FERROUS SULFATE 325 MG (65 MG ELEMENTAL IRON) TAB PO SCH (09:06)
[2017-07-13] MEDS: SODIUM CHLOR 0.9% 1000 ML INJ 1,000 ML IV SCH ×2 (09:06→20:30)
--- NOTE | 2017-07-13 14:27 | HHI.PR ---
Subjective Remarks She presented with LIBORIO and dehydration Objective Vital Signs Date Time Temp Pulse Resp B/P (MAP) Pulse Ox O2 Delivery O2 Flow Rate FiO2 07/13/17 08:00 97.6 70 22 116/57 (76) 93 07/13/17 04:00 82 07/13/17 04:00 97.5 83 17 118/66 (83) 92 07/13/17 00:00 98.3 75 16 93/50 (64) 92 07/13/17 00:00 85 07/12/17 20:00 98.3 83 17 116/62 (80) 92 07/12/17 20:00 90 07/12/17 16:00 93 07/12/17 16:00 97.4 88 20 149/71 (97) 91 I/O 07/12/17 07/12/17 07/12/17 07/13/17 07/13/17 07/13/17 07:00 15:00 23:00 07:00 15:00 23:00 Intake Total 1000 ml 240 ml 880 ml Balance 1000 ml 240 ml 880 ml Intake Oral 240 ml 880 ml IV Total 1000 ml # Voids 3 5 Result Diagram: 07/11/17 0330 07/12/17 1110 Imaging Last Impressions Renal Ultrasound 07/12/17 0000 Signed Impressions: Service Date/Time: Wednesday, July 12, 2017 13:41 - CONCLUSION: 1. The kidneys are echogenic bilaterally suggesting underlying medical renal disease. 2. There are no findings to indicate renal obstruction. Andrea Evans MD Chest X-Ray 07/10/17 1905 Signed Impressions: Service Date/Time: Monday, July 10, 2017 19:29 - CONCLUSION: No acute cardiopulmonary disease. Jannet Monique MD Objective Remarks HEENT - Resting comfortably with AT/NC; Resp - CTA; CV - RRR without rub or gallop; Abd - soft and nontender; MS FROM without deformities Medications and IVs Current Medications Medications (Trade) Dose Ordered Sig/Amadou Route Start Time Stop Time Status Last Admin Sodium Chloride 1,000 ml @ 100 mls/hr Q10H IV 07/10/17 21:35 07/13/17 09:06 (NS Flush) 2 ml UNSCH PRN IV FLUSH 07/10/17 21:45 (NS Flush) 2 ml BID IV FLUSH 07/11/17 09:00 07/11/17 21:00 (Tylenol) 650 mg Q4H PRN PO 07/10/17 21:45 (Zofran Inj) 4 mg Q6H PRN IVP 07/10/17 21:45 (Heparin Inj) 5,000 units Q12H SQ 07/10/17 23:00 07/12/17 23:13 (Narcan Inj) 0.4 mg UNSCH PRN IV PUSH 07/10/17 21:45 (Ashlyn-Colace) 1 tab BID PO 07/11/17 09:00 07/13/17 09:06 (Milk Of Magnesia Liq) 30 ml Q12H PRN PO 07/10/17 21:45 (Senokot) 17.2 mg Q12H PRN PO 07/10/17 21:45 (Dulcolax Supp) 10 mg DAILY PRN RECTAL 07/10/17 21:45 (Lactulose Liq) 30 ml DAILY PRN PO 07/10/17 21:45 (Lipitor) 20 mg HS PO 07/11/17 21:00 07/12/17 20:55 (Aricept) 10 mg HS PO 07/11/17 21:00 07/12/17 20:55 (Ferrous Sulfate) 325 mg DAILY PO 07/11/17 09:00 07/13/17 09:06 (Folate) 0.4 mg DAILY PO 07/11/17 09:00 07/13/17 09:06 (Desyrel) 25 mg HS PO 07/11/17 21:00 07/12/17 20:55 (Depakene) 250 mg HS PO 07/11/17 21:00 07/12/17 20:56 (Protonix) 20 mg DAILY PO 07/11/17 09:00 07/13/17 09:06 (Duoneb Neb) 1 ampule Q6HR NEB PRN NEB 07/11/17 10:00 Assessment and Plan Problem List: (1) UTI (urinary tract infection) ICD Codes: N39.0 - Urinary tract infection, site not specified Status: Acute Plan: Cont current regimen and monitor (2) LIBORIO (acute kidney injury) ICD Codes: N17.9 - Acute kidney failure, unspecified Status: Acute Plan: F/U renal recommendations (3) Dehydration ICD Codes: E86.0 - Dehydration Status: Acute Plan: IV hydration Discussed Condition With Patient [facility]charge [facility] [place] when cleared by renal Omid Rock Jul 13, 2017 14:27
[2017-07-13] MEDS: HEPARIN SODIUM - SQ 10,000 UNITS/ML VIAL SQ SCH ×2 (15:46→22:49)
--- NOTE | 2017-07-13 17:54 | HHI.NPPN ---
Subjective History of Present Illness Patient [facility] a 71 [facility] sent for to ER for evaluation for abnormal labs. Patient has a past medical history of dementia, bipolar, anemia, htn, HLD, and COPD. Patient was found to have calcuim level of 12.3 on admission which with this morning labs and IV hydration are down to 11.5. She was also found to have LIBORIO with a creatinine on admission of 2.20 and GFR of 22ml/min. Her baseline creatinine in 06/12 was 0.86. Denies any nausea, vomiting, or diarrhea. Additional Remarks Resting comfortably. No SOB or edema. Review of Systems Respiratory Respiratory Remarks No SOB Cardiovascular Cardiac Remarks No CP Gastrointestinal GI Remarks No abdominal pain Objective Data Data Vital Signs Date Time Temp Pulse Resp B/P (MAP) Pulse Ox O2 Delivery O2 Flow Rate FiO2 07/13/17 16:00 98.2 70 20 130/59 (82) 96 07/13/17 12:00 98.0 84 20 121/58 (79) 93 07/13/17 08:00 97.6 70 22 116/57 (76) 93 07/13/17 04:00 82 07/13/17 04:00 97.5 83 17 118/66 (83) 92 07/13/17 00:00 98.3 75 16 93/50 (64) 92 07/13/17 00:00 85 07/12/17 20:00 98.3 83 17 116/62 (80) 92 07/12/17 20:00 90 -: 07/11/17 0330 07/12/17 1110 Physical Exam General Appearance: Well Nourished, No Acute Distress, Comfortable Pulmonary Resp Exam: Clear Bilaterally, Breath Sounds Equal, No Distress Cardiology CV Exam: Regular, Normal Sinus Rhythm Gastrointestinal/Abdomen GI Exam: Soft, Non-Tender, Bowel Sounds Present Genitourinary Exam: Flank Non-Tender Integumentary Skin Exam: Clear, Warm, Dry Extremeties Extremities Exam: No Edema Neurologic Neuro Exam: Alert, Awake, Oriented Psychiatric Psych Exam: Appropriate Responses Assessment/Plan Problem List: (1) Prerenal azotemia ICD Codes: R79.89 - Other specified abnormal findings of blood chemistry Status: Acute Plan: Patient creatinine is improving 1.2 with hydration LIBORIO most likely from prerenal azotemia from dehydration UA and C+S ordered Maintain strict I+O Avoid nephrotoxins. will follow as needed (2) Hypercalcemia ICD Codes: E83.52 - Hypercalcemia Status: Acute Yolis Godoy MD Jul 13, 2017 17:54
[2017-07-13] MEDS: DONEPEZIL HCL 5 MG TAB PO SCH (20:25)
[2017-07-13] MEDS: traZODone HCL 50 MG TAB PO SCH (20:26)
[2017-07-13] MEDS: ATORVASTATIN 20 MG TAB PO SCH (20:26)
[2017-07-13] MEDS: VALPROIC ACID 250 MG CAP PO SCH (20:26)
[2017-07-14] VITALS (9 sets, daily range): BP systolic 98–114; BP diastolic 55–66; PULSE 65–103; RESP 16–20; TEMP 97.6–98.3; O2SAT 94–97
[2017-07-14] MEDS: SODIUM CHLORIDE 0.9% FLUSH 10 ML FLUSH IV FLUSH SCH ×2 (07:44→21:00)
[2017-07-14] MEDS: SODIUM CHLOR 0.9% 1000 ML INJ 1,000 ML IV SCH ×2 (07:44→17:22)
[2017-07-14] MEDS: FERROUS SULFATE 325 MG (65 MG ELEMENTAL IRON) TAB PO SCH (09:12)
[2017-07-14] MEDS: PANTOPRAZOLE SOD 20 MG DELAYED RELEASE TAB PO SCH (09:12)
[2017-07-14] MEDS: DOCUSATE SODIUM 50 MG/SENNA 8.6 MG TAB PO SCH ×2 (09:12→21:20)
[2017-07-14] MEDS: FOLIC ACID 1 MG TAB PO SCH (09:12)
[2017-07-14] MEDS: HEPARIN SODIUM - SQ 10,000 UNITS/ML VIAL SQ SCH ×2 (09:13→22:44)
--- NOTE | 2017-07-14 14:25 | HHI.PR ---
Subjective Remarks She presented with LIBORIO and dehydration and both are improved. She wants OOB so I will consult PT to help walk. Objective Vital Signs Date Time Temp Pulse Resp B/P (MAP) Pulse Ox O2 Delivery O2 Flow Rate FiO2 07/14/17 13:38 97 Room Air 07/14/17 12:00 98.3 65 20 109/55 (73) 97 07/14/17 08:00 97.6 86 20 114/62 (79) 94 07/14/17 04:00 Room Air 07/14/17 04:00 98.2 88 16 98/56 (70) 96 07/14/17 03:45 76 07/14/17 00:00 Room Air 07/14/17 00:00 98.1 74 16 106/66 (79) 96 07/13/17 23:46 70 07/13/17 20:30 Room Air 07/13/17 20:00 97.3 74 17 91/52 (65) 96 07/13/17 19:51 103 07/13/17 16:00 90 07/13/17 16:00 98.2 70 20 130/59 (82) 96 I/O 07/13/17 07/13/17 07/13/17 07/14/17 07/14/17 07/14/17 07:00 15:00 23:00 07:00 15:00 23:00 Intake Total 880 ml 1480 ml 1298 ml 270 ml Balance 880 ml 1480 ml 1298 ml 270 ml Intake Oral 880 ml 480 ml 480 ml IV Total 1000 ml 818 ml 270 ml # Voids 5 4 5 # Bowel Movements 2 2 Result Diagram: 07/11/17 0330 07/12/17 1110 Imaging Last Impressions Renal Ultrasound 07/12/17 0000 Signed Impressions: Service Date/Time: Wednesday, July 12, 2017 13:41 - CONCLUSION: 1. The kidneys are echogenic bilaterally suggesting underlying medical renal disease. 2. There are no findings to indicate renal obstruction. Andrea Evans MD Chest X-Ray 07/10/17 1905 Signed Impressions: Service Date/Time: Monday, July 10, 2017 19:29 - CONCLUSION: No acute cardiopulmonary disease. Jannet Monique MD Objective Remarks HEENT - AT/NC; Resp - CTA; CV - RRR without rub or gallop; Abd - soft and nontender; MS - FROM without deformities Medications and IVs Current Medications Medications (Trade) Dose Ordered Sig/Amadou Route Start Time Stop Time Status Last Admin Sodium Chloride 1,000 ml @ 100 mls/hr Q10H IV 07/10/17 21:35 07/14/17 07:44 (NS Flush) 2 ml UNSCH PRN IV FLUSH 07/10/17 21:45 (NS Flush) 2 ml BID IV FLUSH 07/11/17 09:00 07/11/17 21:00 (Tylenol) 650 mg Q4H PRN PO 07/10/17 21:45 (Zofran Inj) 4 mg Q6H PRN IVP 07/10/17 21:45 (Heparin Inj) 5,000 units Q12H SQ 07/10/17 23:00 07/14/17 09:13 (Narcan Inj) 0.4 mg UNSCH PRN IV PUSH 07/10/17 21:45 (Ashlyn-Colace) 1 tab BID PO 07/11/17 09:00 07/14/17 09:12 (Milk Of Magnesia Liq) 30 ml Q12H PRN PO 07/10/17 21:45 (Senokot) 17.2 mg Q12H PRN PO 07/10/17 21:45 (Dulcolax Supp) 10 mg DAILY PRN RECTAL 07/10/17 21:45 (Lactulose Liq) 30 ml DAILY PRN PO 07/10/17 21:45 (Lipitor) 20 mg HS PO 07/11/17 21:00 07/13/17 20:26 (Aricept) 10 mg HS PO 07/11/17 21:00 07/13/17 20:25 (Ferrous Sulfate) 325 mg DAILY PO 07/11/17 09:00 07/14/17 09:12 (Folate) 0.4 mg DAILY PO 07/11/17 09:00 07/14/17 09:12 (Desyrel) 25 mg HS PO 07/11/17 21:00 07/13/17 20:26 (Depakene) 250 mg HS PO 07/11/17 21:00 07/13/17 20:26 (Protonix) 20 mg DAILY PO 07/11/17 09:00 07/14/17 09:12 (Duoneb Neb) 1 ampule Q6HR NEB PRN NEB 07/11/17 10:00 Assessment and Plan Problem List: (1) UTI (urinary tract infection) ICD Codes: N39.0 - Urinary tract infection, site not specified Status: Acute Plan: Cont current regimen and monitor (2) LIBORIO (acute kidney injury) ICD Codes: N17.9 - Acute kidney failure, unspecified Status: Acute Plan: F/U renal recommendations as her renal function is improved (3) Dehydration ICD Codes: E86.0 - Dehydration Status: Acute Plan: IV hydration with improving GFR Assessment and Plan Will repeat labs and cont hydration. F/U eval per renal and plan D/C back to SNF when cleared by renal to leave. Discussed Condition With Patient Discharge Planning SNF Omid Rock Jul 14, 2017 14:25
[2017-07-14 18:08] LABS: AUTOMATED NEUTROPHIL # 3.5 TH/MM3 (1.8-7.7); BASOPHIL % 0.5 % (0.0-2.0); EOSINOPHIL # 0.1 TH/MM3 (0-0.4); EOSINOPHIL % 2.1 % (0.0-4.0); HEMOGLOBIN 12.2 GM/DL (11.6-15.3); LYMPH % 29.7 % (9.0-44.0); LYMPHOCYTE # 1.8 TH/MM3 (1.0-4.8); MEAN CELL VOLUME 86.8 FL (80.0-100.0); MEAN CORPUSCULAR HEMOGLOBIN 29.5 PG (27.0-34.0); MEAN PLATELET VOLUME 9.2 FL (7.0-11.0); MONO % 10.8 % (0.0-8.0); MONOCYTE # 0.7 TH/MM3 (0-0.9); NEUT % 56.9 % (16.0-70.0); PLATELET COUNT 199 TH/MM3 (150-450); RED BLOOD COUNT 4.15 MIL/MM3 (4.00-5.30); RED CELL DISTRIBUTION WIDTH 16.7 % (11.6-17.2); WHITE BLOOD COUNT 6.1 TH/MM3 (4.0-11.0)
[2017-07-14 18:29] LABS: ALBUMIN 2.5 GM/DL (3.4-5.0); ALT (GPT) 15 U/L (10-53); AST (GOT) 36 U/L (15-37); BICARBONATE 27.9 MEQ/L (21.0-32.0); BLOOD UREA NITROGEN 23 MG/DL (7-18); CALCIUM 7.9 MG/DL (8.5-10.1); CHLORIDE 110 MEQ/L (98-107); CREATININE 0.94 MG/DL (0.50-1.00); GLOMERULAR FILTRATION RATE 59 ML/MIN (>89); GLUCOSE,RANDOM 71 MG/DL (74-106); SODIUM (NA) 144 MEQ/L (136-145)
[2017-07-14 18:38] LABS: ALKALINE PHOSPHATASE 51 U/L (45-117); TOTAL BILIRUBIN ADULT 0.3 MG/DL (0.2-1.0); TOTAL PROTEIN 5.3 GM/DL (6.4-8.2)
[2017-07-14] MEDS: traZODone HCL 50 MG TAB PO SCH (21:20)
[2017-07-14] MEDS: VALPROIC ACID 250 MG CAP PO SCH (21:20)
[2017-07-14] MEDS: ATORVASTATIN 20 MG TAB PO SCH (21:20)
[2017-07-14] MEDS: DONEPEZIL HCL 5 MG TAB PO SCH (21:20)
[2017-07-15] VITALS (11 sets, daily range): BP systolic 104–131; BP diastolic 57–91; PULSE 54–91; RESP 18–21; TEMP 97.7–98.4; O2SAT 94–100
[2017-07-15] MEDS: SODIUM CHLOR 0.9% 1000 ML INJ 1,000 ML IV SCH ×3 (03:17→21:35)
--- NOTE | 2017-07-15 08:16 | HHI.PR ---
Subjective Remarks Slept well, no complaints Objective Vital Signs Date Time Temp Pulse Resp B/P (MAP) Pulse Ox O2 Delivery O2 Flow Rate FiO2 07/15/17 04:00 Room Air 07/15/17 04:00 97.8 84 19 115/57 (76) 94 07/15/17 03:53 79 07/15/17 00:00 Room Air 07/15/17 00:00 97.8 67 21 131/91 (104) 94 07/14/17 23:59 89 07/14/17 21:20 Room Air 07/14/17 20:26 103 07/14/17 20:00 98.1 82 20 112/56 (74) 97 07/14/17 16:00 97.9 85 20 103/59 (74) 95 07/14/17 16:00 84 07/14/17 13:38 97 Room Air 07/14/17 12:00 85 07/14/17 12:00 98.3 65 20 109/55 (73) 97 I/O 07/14/17 07/14/17 07/14/17 07/15/17 07/15/17 07/15/17 07:00 15:00 23:00 07:00 15:00 23:00 Intake Total 1298 ml 270 ml 480 ml 1240 ml Balance 1298 ml 270 ml 480 ml 1240 ml Intake Oral 480 ml 480 ml 240 ml IV Total 818 ml 270 ml 1000 ml # Voids 5 6 4 # Bowel Movements 2 0 Result Diagram: 07/14/17 1735 07/14/17 1735 Other Results Laboratory Tests Test 07/12/17 11:10 07/14/17 17:35 Blood Urea Nitrogen 72 MG/DL (7-18) 23 MG/DL (7-18) Creatinine 1.27 MG/DL (0.50-1.00) Carbon Dioxide Level 32.2 MEQ/L (21.0-32.0) Anion Gap 4 MEQ/L (5-15) Estimat Glomerular Filtration Rate 42 ML/MIN (>89) 59 ML/MIN (>89) Total Protein 5.3 GM/DL (6.0-7.6) 5.3 GM/DL (6.4-8.2) Albumin 2.93 GM/DL (3.50-5.00) 2.5 GM/DL (3.4-5.0) Albumin/Globulin Ratio 1.23 (1.39-2.23) Monocytes (%) (Auto) 10.8 % (0.0-8.0) Random Glucose 71 MG/DL (74-106) Calcium Level 7.9 MG/DL (8.5-10.1) Potassium Level 3.2 MEQ/L (3.5-5.1) Chloride Level 110 MEQ/L (98-107) Objective Remarks GENERAL: Alert, oriented, follows commands SKIN: Warm and dry. HEAD: Normocephalic. EYES: No scleral icterus. No injection or drainage. NECK: Supple, trachea midline. No JVD or lymphadenopathy. CARDIOVASCULAR: Regular rate and rhythm without murmurs, gallops, or rubs. RESPIRATORY: Breath sounds equal bilaterally. No accessory muscle use. GASTROINTESTINAL: Abdomen soft, non-tender, nondistended. MUSCULOSKELETAL: No cyanosis, or edema. BACK: Nontender without obvious deformity. No CVA tenderness. Medications and IVs Current Medications Medications (Trade) Dose Ordered Sig/Amadou Route Start Time Stop Time Status Last Admin Sodium Chloride 1,000 ml @ 100 mls/hr Q10H IV 07/10/17 21:35 07/15/17 03:17 (NS Flush) 2 ml UNSCH PRN IV FLUSH 07/10/17 21:45 (NS Flush) 2 ml BID IV FLUSH 07/11/17 09:00 07/11/17 21:00 (Tylenol) 650 mg Q4H PRN PO 07/10/17 21:45 (Zofran Inj) 4 mg Q6H PRN IVP 07/10/17 21:45 (Heparin Inj) 5,000 units Q12H SQ 07/10/17 23:00 07/14/17 22:44 (Narcan Inj) 0.4 mg UNSCH PRN IV PUSH 07/10/17 21:45 (Ashlyn-Colace) 1 tab BID PO 07/11/17 09:00 07/14/17 21:20 (Milk Of Magnesia Liq) 30 ml Q12H PRN PO 07/10/17 21:45 (Senokot) 17.2 mg Q12H PRN PO 07/10/17 21:45 (Dulcolax Supp) 10 mg DAILY PRN RECTAL 07/10/17 21:45 (Lactulose Liq) 30 ml DAILY PRN PO 07/10/17 21:45 (Lipitor) 20 mg HS PO 07/11/17 21:00 07/14/17 21:20 (Aricept) 10 mg HS PO 07/11/17 21:00 07/14/17 21:20 (Ferrous Sulfate) 325 mg DAILY PO 07/11/17 09:00 07/14/17 09:12 (Folate) 0.4 mg DAILY PO 07/11/17 09:00 07/14/17 09:12 (Desyrel) 25 mg HS PO 07/11/17 21:00 07/14/17 21:20 (Depakene) 250 mg HS PO 07/11/17 21:00 07/14/17 21:20 (Protonix) 20 mg DAILY PO 07/11/17 09:00 07/14/17 09:12 (Duoneb Neb) 1 ampule Q6HR NEB PRN NEB 07/11/17 10:00 Assessment and Plan Problem List: (1) Prerenal azotemia ICD Codes: R79.89 - Other specified abnormal findings of blood chemistry Status: Acute Plan: Improved, renal following (2) Hypercalcemia ICD Codes: E83.52 - Hypercalcemia Status: Acute Plan: Resolved (3) COPD (chronic obstructive pulmonary disease) ICD Codes: J44.9 - Chronic obstructive pulmonary disease, unspecified Status: Chronic Plan: On room air, Maintain sat's > 92%, Nebs Assessment and Plan Likely DC back to Rehab in am. Cynthia Ray Jul 15, 2017 08:16
[2017-07-15] MEDS ORDERED: POTASSIUM CHLORIDE 20 MEQ CONTROLLED RELEASE TAB PO ONE (09:00)
[2017-07-15] MEDS: DOCUSATE SODIUM 50 MG/SENNA 8.6 MG TAB PO SCH ×2 (10:07→21:26)
[2017-07-15] MEDS: PANTOPRAZOLE SOD 20 MG DELAYED RELEASE TAB PO SCH (10:07)
[2017-07-15] MEDS: FERROUS SULFATE 325 MG (65 MG ELEMENTAL IRON) TAB PO SCH (10:07)
[2017-07-15] MEDS: FOLIC ACID 1 MG TAB PO SCH (10:07)
[2017-07-15] MEDS: SODIUM CHLORIDE 0.9% FLUSH 10 ML FLUSH IV FLUSH SCH ×2 (10:07→21:31)
--- NOTE | 2017-07-15 10:33 | HHI.NPPN ---
Subjective History of Present Illness Patient is a 71 [facility] sent for to ER for evaluation for abnormal labs. Patient has a past medical history of dementia, bipolar, anemia, htn, HLD, and COPD. Patient was found to have calcuim level of 12.3 on admission which with this morning labs and IV hydration are down to 11.5. She was also found to have LIBORIO with a creatinine on admission of 2.20 and GFR of 22ml/min. Her baseline creatinine in 06/12 was 0.86. Denies any nausea, vomiting, or diarrhea. Additional Remarks Resting comfortably. No SOB or edema. (Sarina Wheeler) Review of Systems Respiratory Respiratory Remarks No SOB (Sarina Wheeler) Cardiovascular Cardiac Remarks No CP (Sarina Wheeler) Gastrointestinal GI Remarks No abdominal pain (Sarina Wheeler) Objective Data Data Vital Signs Date Time Temp Pulse Resp B/P (MAP) Pulse Ox O2 Delivery O2 Flow Rate FiO2 07/15/17 08:04 97.7 54 19 121/62 (81) 97 07/15/17 04:00 Room Air 07/15/17 04:00 97.8 84 19 115/57 (76) 94 07/15/17 03:53 79 07/15/17 00:00 Room Air 07/15/17 00:00 97.8 67 21 131/91 (104) 94 07/14/17 23:59 89 07/14/17 21:20 Room Air 07/14/17 20:26 103 07/14/17 20:00 98.1 82 20 112/56 (74) 97 07/14/17 16:00 97.9 85 20 103/59 (74) 95 07/14/17 16:00 84 07/14/17 13:38 97 Room Air 07/14/17 12:00 85 07/14/17 12:00 98.3 65 20 109/55 (73) 97 (Sarina Wheeler) -: 07/14/17 1735 07/14/17 1735 Physical Exam General Appearance: Well Nourished, No Acute Distress, Comfortable (Sarina Wheeler) Pulmonary Resp Exam: Clear Bilaterally, Breath Sounds Equal, No Distress (Sarina Wheeler) Cardiology CV Exam: Regular, Normal Sinus Rhythm (Sarina Wheeler) Gastrointestinal/Abdomen GI Exam: Soft, Non-Tender, Bowel Sounds Present (Sarina Wheeler) Genitourinary Exam: Flank Non-Tender (Sarina Wheeler) Integumentary Skin Exam: Clear, Warm, Dry (Sarina Wheeler) Extremeties Extremities Exam: No Edema (Sarina Wheeler) Neurologic Neuro Exam: Alert, Awake, Oriented (Sarina Wheeler) Psychiatric Psych Exam: Appropriate Responses (Sarina Wheeler) Assessment/Plan Problem List: (1) Prerenal azotemia ICD Codes: R79.89 - Other specified abnormal findings of blood chemistry Status: Acute Plan: Patient creatinine is improving LIBORIO most likely from prerenal azotemia from dehydration Maintain strict I+O Avoid nephrotoxins. Hypercalcemia resolved cleared from nephrology stand point for discharge (2) Hypercalcemia ICD Codes: E83.52 - Hypercalcemia Status: Acute (Sarina Wheeler) Problem List: (1) Prerenal azotemia ICD Codes: R79.89 - Other specified abnormal findings of blood chemistry Status: Acute Plan: Patient creatinine is improving LIBORIO most likely from prerenal azotemia from dehydration Maintain strict I+O Avoid nephrotoxins. Hypercalcemia resolved cleared from nephrology stand point for discharge. Patient seen and examined, agree with above. (2) Hypercalcemia ICD Codes: E83.52 - Hypercalcemia Status: Acute (Neena Zheng MD) Sarina Wheeler Jul 15, 2017 10:33 Neena Zheng MD Jul 15, 2017 20:47
[2017-07-15] MEDS: HEPARIN SODIUM - SQ 10,000 UNITS/ML VIAL SQ SCH ×2 (11:55→21:49)
[2017-07-15] MEDS: ATORVASTATIN 20 MG TAB PO SCH (21:26)
[2017-07-15] MEDS: traZODone HCL 50 MG TAB PO SCH (21:27)
[2017-07-15] MEDS: VALPROIC ACID 250 MG CAP PO SCH (21:27)
[2017-07-15] MEDS: DONEPEZIL HCL 5 MG TAB PO SCH (21:27)
[2017-07-16] VITALS: BP 99/62; PULSE 92; RESP 20; TEMP 97.5; O2SAT 96
[2017-07-16 00:15] VITALS: PULSE 100
[2017-07-16 03:46] VITALS: PULSE 92
[2017-07-16 04:00] VITALS: BP 127/66; PULSE 90; RESP 22; TEMP 97.9; O2SAT 95
[2017-07-16 07:17] LABS: AUTOMATED NEUTROPHIL # 3.7 TH/MM3 (1.8-7.7); BASOPHIL % 0.8 % (0.0-2.0); EOSINOPHIL # 0.2 TH/MM3 (0-0.4); EOSINOPHIL % 2.7 % (0.0-4.0); HEMOGLOBIN 11.3 GM/DL (11.6-15.3); LYMPH % 24.2 % (9.0-44.0); LYMPHOCYTE # 1.4 TH/MM3 (1.0-4.8); MEAN CELL VOLUME 85.7 FL (80.0-100.0); MEAN CORPUSCULAR HEMOGLOBIN 29.3 PG (27.0-34.0); MEAN CORPUSCULAR HGB CONC 34.2 % (32.0-36.0); MEAN PLATELET VOLUME 9.1 FL (7.0-11.0); MONOCYTE # 0.6 TH/MM3 (0-0.9); NEUT % 62.3 % (16.0-70.0); PLATELET COUNT 213 TH/MM3 (150-450); RED BLOOD COUNT 3.85 MIL/MM3 (4.00-5.30); RED CELL DISTRIBUTION WIDTH 16.5 % (11.6-17.2); WHITE BLOOD COUNT 5.9 TH/MM3 (4.0-11.0)
[2017-07-16 07:51] LABS: BICARBONATE 26.6 MEQ/L (21.0-32.0); CALCIUM 7.5 MG/DL (8.5-10.1); CREATININE 0.68 MG/DL (0.50-1.00)
[2017-07-16 08:00] VITALS: BP 101/54; PULSE 80; PULSE 84; RESP 18; TEMP 97.8; O2SAT 96
[2017-07-16] MEDS: SODIUM CHLOR 0.9% 1000 ML INJ 1,000 ML IV SCH (08:21)
[2017-07-16] MEDS: DOCUSATE SODIUM 50 MG/SENNA 8.6 MG TAB PO SCH (08:22)
[2017-07-16] MEDS: SODIUM CHLORIDE 0.9% FLUSH 10 ML FLUSH IV FLUSH SCH (08:22)
[2017-07-16] MEDS: FERROUS SULFATE 325 MG (65 MG ELEMENTAL IRON) TAB PO SCH (08:22)
[2017-07-16] MEDS: PANTOPRAZOLE SOD 20 MG DELAYED RELEASE TAB PO SCH (08:23)
[2017-07-16] MEDS: FOLIC ACID 1 MG TAB PO SCH (08:23)
[2017-07-16] MEDS ORDERED: ZOLP10TA3 PO (10:00)
--- NOTE | 2017-07-16 10:05 | HHI.DS ---
Discharge Summary Admission Date Jul 10, 2017 at 22:14 Admitting Diagnosis PRERENAL AZOTEMIA, HYPERCALCEMIA Brief History 71 y/[facility] for [facility] labs. She denies any associated factors,denies recent Vomiting, Diarrhea, voices she feels fine. She does have hx of dementia, answers appropriately. CBC/BMP: 07/16/17 0646 07/16/17 0646 Significant Findings Laboratory Tests Test 07/14/17 17:35 07/16/17 06:46 Monocytes (%) (Auto) 10.8 % (0.0-8.0) 10.0 % (0.0-8.0) Blood Urea Nitrogen 23 MG/DL (7-18) Random Glucose 71 MG/DL (74-106) 72 MG/DL (74-106) Total Protein 5.3 GM/DL (6.4-8.2) Albumin 2.5 GM/DL (3.4-5.0) Calcium Level 7.9 MG/DL (8.5-10.1) 7.5 MG/DL (8.5-10.1) Potassium Level 3.2 MEQ/L (3.5-5.1) 3.1 MEQ/L (3.5-5.1) Chloride Level 110 MEQ/L (98-107) 108 MEQ/L (98-107) Estimat Glomerular Filtration Rate 59 ML/MIN (>89) 86 ML/MIN (>89) Red Blood Count 3.85 MIL/MM3 (4.00-5.30) Hemoglobin 11.3 GM/DL (11.6-15.3) Hematocrit 33.0 % (35.0-46.0) PE at Discharge GENERAL: Alert, oriented, follows commands SKIN: Warm and dry. HEAD: Normocephalic. EYES: No scleral icterus. No injection or drainage. NECK: Supple, trachea midline. No JVD or lymphadenopathy. CARDIOVASCULAR: Regular rate and rhythm without murmurs, gallops, or rubs. RESPIRATORY: Breath sounds equal bilaterally. No accessory muscle use. GASTROINTESTINAL: Abdomen soft, non-tender, nondistended. MUSCULOSKELETAL: No cyanosis, or edema. BACK: Nontender without obvious deformity. No CVA tenderness. Hospital Course Admitted for hypercalcemia and azotemia likely r/t dehydration.nephrology consulted. Functions improved with IV hydration. She is noted to have low BS this am 74 Pt Condition on Discharge: Fair Discharge Disposition: Discharge to SNF Discharge Instructions DIET: Follow Instructions for: As Tolerated, No Restrictions, Heart Healthy Diet Activities you can perform: Regular-No Restrictions Continued Medications: Atorvastatin (Atorvastatin) 20 Mg Tab 20 MG PO HS for Cholesterol Management, #30 TAB 0 Refills Cholecalciferol (Vitamin D3) 5,000 Unit Cap 5000 UNITS PO DAILY for Nutritional Supplement, #30 CAP Donepezil (Donepezil) 10 Mg Tab 10 MG PO HS for Dementia, #30 TAB 0 Refills Ferrous Sulfate (Ferrous Sulfate) 325 Mg (65 Mg Iron) Tablet 325 MG PO DAILY for Nutritional Supplement, #30 TAB 0 Refills Folic Acid (Folic Acid) 400 Mcg Tab 400 MCG PO DAILY for Nutritional Supplement, TAB 0 Refills Omeprazole (Omeprazole) 20 Mg Tab 20 MG PO DAILY, #30 TAB 0 Refills Oxybutynin (Ditropan) 5 Mg Tab 10 MG PO DAILY for Urinary Symptom Managemen, #60 TAB 0 Refills Potassium Chloride Microencaps (Potassium Chloride Microencaps) 20 Meq Tab 20 MEQ PO DAILY for Electrolyte Replacement, #30 TAB Trazodone (Trazodone) 50 Mg Tab 25 MG PO HS for Control Depression, #30 TAB 0 Refills Valproic Acid (Valproic Acid) 250 Mg Cap 250 MG PO HS, #60 CAP 0 Refills Zolpidem (Zolpidem) 10 Mg Tab 10 MG PO HS PRN for INSOMNIA for 7 Days, TAB 0 Refills (This prescription has been renewed) Discontinued Medications: Bisacodyl Supp (Dulcolax Supp) 10 Mg Supp 10 MG RECTAL DAILY PRN for CONSTIPATION, #12 SUPP 0 Refills Magnesium Hydroxide Liq (Milk of Magnesia Liq) 400 Mg/5 Ml Susp 30 ML PO DAILY PRN for INDIGESTION OR UPSET STOMACH, #1 BOTTLE 0 Refills Additional Information Cbc, CMP tomorrow in [facility]. Cynthia Ray Jul 16, 2017 10:05
[2017-07-16] MEDS ORDERED: POTASSIUM CHLORIDE 10 MEQ CONTROLLED RELEASE TAB PO ONE (11:00)
[2017-07-16] MEDS: HEPARIN SODIUM - SQ 10,000 UNITS/ML VIAL SQ SCH (11:28)
== END 2017-07-16 11:50 | DRG 641 ==
LOC: NEPC 18:50 → NEDA 21:12 → OBSVTOIN 22:14 → NEDA 22:48 → NEDH 07-11 02:37 → N04A 07-11 10:06
PROVIDERS: ADMIT Family Medicine; ATTEND Family Medicine
DX: E83.52 Hypercalcemia (principal); N17.9 Acute kidney failure, unspecified; F03.90 Unspecified dementia, unspecified severity, without behavioral disturbance, psychotic disturbance, mood disturbance, and anxiety; J44.9 Chronic obstructive pulmonary disease, unspecified; E86.0 Dehydration; R79.89 Other specified abnormal findings of blood chemistry; I10 Essential (primary) hypertension; E78.5 Hyperlipidemia, unspecified; F17.210 Nicotine dependence, cigarettes, uncomplicated
CPT/HCPCS: 71045; 76775; 76937; 80048; 80053; 82306; 82397; 83690; 83970; 84165; 84443; 84484; 85025; 85610; 85730; 93005; J1644; J7030

== ENCOUNTER 2018-03-07 20:24 | Inpatient (IN) ==
--- NOTE | 2018-03-07 23:58 | ED ---
HPI General Chief complaint: Medical Clearance Stated complaint: Left Hip Pain Time Seen by Provider: 03/07/18 23:44 Source: patient Mode of arrival: EMS Limitations: no limitations History of Present Illness HPI narrative: 72-year-old white female who lives at [facility] re[facility] presents emergency department by EMS with complaints of left hip pain. Patient had an outpatient CT scan of the left hip which shows an acute closed comminuted impacted subcapital left femoral neck fracture. Patient had a fall at the nursing facility earlier in the week. She had plain x-rays performed which were read as negative. She had complained of persistent pain and inability to weight-bear therefore a CAT scan as an outpatient has been ordered. The patient here states that she did not pass out. She denied having any chest pain or shortness of breath. No nausea or vomiting. No abdominal pain. No focal numbness or tingling. He states the pain is moderate but is more severe when she attempts to move or weight-bear. Past medical history: Hypertension, COPD, coronary artery disease, dementia, GERD, hyperlipidemia, major depressive disorder, bipolar, Alzheimer's, insomnia Related Data Home Medications Medication Instructions Recorded Confirmed acetaminophen [Tylenol] 650 mg PO QID PRN 03/07/18 03/07/18 atorvastatin 20 mg PO HS 03/07/18 03/07/18 bisacodyl [Dulcolax (bisacodyl)] 10 mg MT DAILY 03/07/18 03/07/18 cholecalciferol (vitamin D3) 5,000 unit PO DAILY 03/07/18 03/07/18 donepezil 10 mg PO DAILY 03/07/18 03/07/18 ferrous sulfate 325 mg PO BID 03/07/18 03/07/18 folic acid 0.4 mg PO DAILY 03/07/18 03/07/18 loperamide 2 mg PO BID 03/07/18 03/07/18 magnesium hydroxide [Milk of 30 ml PO DAILY PRN 03/07/18 03/07/18 Magnesia] omeprazole 20 mg PO DAILY 03/07/18 03/07/18 oxybutynin chloride [Ditropan XL] 10 mg PO DAILY 03/07/18 03/07/18 potassium chloride 20 meq PO BID 03/07/18 03/07/18 sodium phosphates [Enema 59 ml MT DAILY PRN 03/07/18 03/07/18 Disposable] tramadol 50 mg PO Q4H 03/07/18 03/07/18 trazodone 25 mg PO HS 03/07/18 03/07/18 valproic acid 250 mg PO HS 03/07/18 03/07/18 zolpidem [Ambien] 5 mg PO HS 03/07/18 03/07/18 Allergies Allergy/AdvReac Type Severity Reaction Status Date / Time bismuth subsalicylate Allergy Unknown Unverified 07/10/17 19:33 mesalamine Allergy Unknown Unverified 07/10/17 19:33 Review of Systems ROS: all other systems reviewed are negative [facility] Medical History Medical History Anxiety (Acute) COPD (chronic obstructive pulmonary disease) (Acute) Dementia (Acute) Depression (Acute) GERD (gastroesophageal reflux disease) (Acute) H/O: hysterectomy (Acute) HTN (hypertension) (Acute) Social History Social History Substance History: No History of Abuse Second Hand Smoke Exposure: No Smoking Status: Former smoker Tobacco Type: Cigarettes and Cigars How Often Do You Have a Drink Containing Alcohol: Never Recent Travel in [facility] [place] within the Last 8 Weeks: No Recent Out of Country Travel within the Last 8 Weeks: No Immunization History Tetanus Immunization: <5 Years Exam Narrative Exam Narrative: GENERAL: Well-developed, well-nourished in no apparent distress. Nontoxic appearing. Patient is not ambulatory due to pain. HEAD: Normocephalic, atraumatic. EYES: Pupils equal round and reactive. Extraocular motions intact. No scleral icterus. No injection or drainage. ENT: Nose clear. Throat without erythema, tonsillar hypertrophy or exudate. Uvula midline. Airway patent. NECK: Trachea midline. Supple, nontender, moves head freely. No central bony tenderness or spasm. CARDIOVASCULAR: Regular rate and rhythm without murmurs, gallops, or rubs. RESPIRATORY: Clear to auscultation. Breath sounds equal bilaterally. No wheezes , rales, or rhonchi. GASTROINTESTINAL: Abdomen soft, non-tender, nondistended. No hepato-splenomegaly , or palpable masses. No guarding. EXTREMITIES: No clubbing, cyanosis, or edema. Complains of pain to the lateral left hip and left groin. No obvious shortening or rotation. No pain in the knee, ankle or foot. She has intact sensation with good distal pulses. BACK: Nontender without deformity. No flank tenderness. NEUROLOGICAL: Awake, alert and oriented x 3 .Cranial nerves grossly intact. Motor and sensory grossly within normal limits. Normal speech. Course Initial Documented Vital Signs Temperature 98.5 F 03/07/18 20:34 Pulse Rate 81 03/07/18 20:34 Respiratory Rate 18 03/07/18 20:34 Blood Pressure 144/75 H 03/07/18 20:34 Pulse Oximetry 95 03/07/18 20:34 Last Documented Vital Signs Temperature 98.0 F 03/09/18 12:00 Pulse Rate 97 H 03/09/18 12:00 Respiratory Rate 18 03/09/18 12:00 Blood Pressure 132/74 03/09/18 12:00 Pulse Oximetry 93 L 03/09/18 12:00 Medical Decision Making MDM Narrative Medical decision making narrative: Patient was referred to [facility] after having outpatient CAT scan of the left hip. This confirmed a comminuted impacted subcapital left hip fracture. Unfortunately images were not sent with the patient other than the report. We will get baseline laboratory testing as well as a plain x-ray of the left hip preoperative labs. X-rays confirm a left hip fracture. I have spoken with the residents who is agreed to admit to Dr. Rucker and consult orthopedics. Medical Screen Exam Complete: Yes Emergency Medical Condition: Yes Lab Data Result diagrams: 03/09/18 03:46 03/09/18 03:46 Lab Results 03/08/18 03/08/18 03/08/18 Range/Units 00:50 00:50 00:50 WBC 7.6 (4.0-11.0) th/mm3 RBC 5.25 (4.00-5.30) mil/mm3 Hgb 15.7 H (11.6-15.3) gm/dL Hct 47.2 H (35.0-46.0) % MCV 90.0 (80.0-100.0) fL MCH 30.0 (27.0-34.0) pg MCHC 33.3 (32.0-36.0) % RDW 16.3 (11.6-17.2) % Plt Count 270 (150-450) th/mm3 MPV 9.0 (7.0-11.0) fL PT (9.8-11.6) sec INR Ratio APTT (24.3-30.1) sec Sodium 138 (136-145) meq/L Potassium 4.7 (3.5-5.1) meq/L Chloride 99 (98-107) meq/L Carbon Dioxide 28.4 (21.0-32.0) meq/L Anion Gap 11 (5-15) meq/L BUN 17 (7-18) mg/dL Creatinine 0.95 (0.50-1.00) mg/dL Estimated GFR 58 L (>89) mL/min Random Glucose 90 (74-106) mg/dL Calcium 9.3 (8.5-10.1) mg/dL Total Bilirubin 0.5 (0.2-1.0) mg/dL AST 31 (15-37) U/L ALT 23 (10-53) U/L Alkaline Phosphatase 84 (45-117) U/L Total Protein 7.1 (6.4-8.2) g/dL Albumin 3.1 L (3.4-5.0) g/dL Blood Type O Negative Blood Type Recheck Not needed Antibody Screen Negative 03/08/18 03/09/18 03/09/18 Range/Units 07:30 03:46 03:46 WBC 7.0 (4.0-11.0) th/mm3 RBC 5.06 (4.00-5.30) mil/mm3 Hgb 15.1 (11.6-15.3) gm/dL Hct 45.6 (35.0-46.0) % MCV 90.2 (80.0-100.0) fL MCH 29.8 (27.0-34.0) pg MCHC 33.1 (32.0-36.0) % RDW 16.1 (11.6-17.2) % Plt Count 216 (150-450) th/mm3 MPV 8.7 (7.0-11.0) fL PT 10.6 (9.8-11.6) sec INR 1.0 Ratio APTT 26.6 (24.3-30.1) sec Sodium 135 L (136-145) meq/L Potassium 5.4 H (3.5-5.1) meq/L Chloride 99 (98-107) meq/L Carbon Dioxide 27.2 (21.0-32.0) meq/L Anion Gap 9 (5-15) meq/L BUN 20 H (7-18) mg/dL Creatinine 0.92 (0.50-1.00) mg/dL Estimated GFR 60 L (>89) mL/min Random Glucose 76 (74-106) mg/dL Calcium 8.8 (8.5-10.1) mg/dL Total Bilirubin (0.2-1.0) mg/dL AST (15-37) U/L ALT (10-53) U/L Alkaline Phosphatase (45-117) U/L Total Protein (6.4-8.2) g/dL Albumin (3.4-5.0) g/dL Blood Type Blood Type Recheck Antibody Screen Imaging Data Radiologist's impression: Pelvis X-Ray 03/08/18 00:00 CONCLUSION: 1. Left hip arthroplasty in gross anatomic alignment without acute fracture. Chest X-Ray 03/08/18 00:01 CONCLUSION: No active disease. Remote right clavicle fracture with nonunion. Hip X-Ray 03/08/18 00:01 CONCLUSION: Subcapital fracture left femoral neck. Discharge Plan Discharge Disposition Patient Disposition: 30 Still Patient Discharge Condition Condition: Stable Physicians Team ED Provider: Hanna Herrera ED Midlevel Provider: Justice Gregory Primary Care Provider: Primary Care Esha,Misty Attending Provider: Jasvir Schmitt Other Providers: [facility],Agency Status ED Status: Left Department Discharge Information Discharge Date/Time: 03/08/18 02:54
--- NOTE | 2018-03-08 00:30 | XR ---
EXAM DATE: 03/08/2018 12:01 AM EDT AGE/SEX: 72 years / Female INDICATIONS: Trauma due to fall. CLINICAL DATA: This is the patient's initial encounter. Patient reports that signs and symptoms have been present for 1 day and indicates a pain score of 0/10. MEDICAL/SURGICAL HISTORY: . Cerebrovascular disease. Hypertension. Dementia. None. COMPARISON: No prior exams available for comparison. FINDINGS: A single AP view of the chest demonstrates the lungs to be symmetrically aerated without evidence of mass, infiltrate or effusion. The cardiomediastinal contours are unremarkable. Remote right clavicle fracture. CONCLUSION: No active disease. Remote right clavicle fracture with nonunion. Electronically signed by: Justice Perez MD 03/08/2018 12:29 AM EDT
--- NOTE | 2018-03-08 00:33 | XR ---
EXAM DATE: 03/08/2018 12:01 AM EDT AGE/SEX: 72 years / Female INDICATIONS: Fracture. CLINICAL DATA: This is the patient's initial encounter. Patient reports that signs and symptoms have been present for 1 day and indicates a pain score of 9/10. MEDICAL/SURGICAL HISTORY: . Cerebrovascular disease. Hypertension. Dementia. None. COMPARISON: No prior exams available for comparison. FINDINGS: There is a subcapital fracture of the proximal left femur with mild displacement. Osteoarthritis pres ent at the left hip. CONCLUSION: Subcapital fracture left femoral neck. Electronically signed by: Justice Perez MD 03/08/2018 12:31 AM EDT
[2018-03-08] MEDS ORDERED: Naloxone Inj 0.4 MG/ML Vial IV.PUSH PRN (00:48)
[2018-03-08] MEDS ORDERED: Acetaminophen 325 MG Tablet PO PRN (00:48)
[2018-03-08 01:08] LABS: Hematocrit 47.2 % (35.0-46.0); Hemoglobin 15.7 gm/dL (11.6-15.3); Mean Corpuscular HGB Conc 33.3 % (32.0-36.0); Platelet Count 270 th/mm3 (150-450); Red Blood Count 5.25 mil/mm3 (4.00-5.30); Red Cell Distribution Width 16.3 % (11.6-17.2); White Blood Count 7.6 th/mm3 (4.0-11.0)
[2018-03-08] MEDS: Morphine Inj 4 MG/ML Vial IV.PUSH PRN ×2 (01:10→14:56)
[2018-03-08] MEDS: Sod Chloride 0.9% Inj 1,000 ML IV.CONT SCH ×3 (01:23→20:27)
[2018-03-08 01:35] LABS: Alanine Aminotransferase 23 U/L (10-53); Albumin 3.1 g/dL (3.4-5.0); Anion Gap 11 meq/L (5-15); Aspartate Aminotransferase 31 U/L (15-37); Blood Urea Nitrogen 17 mg/dL (7-18); Calcium 9.3 mg/dL (8.5-10.1); Carbon Dioxide 28.4 meq/L (21.0-32.0); Chloride 99 meq/L (98-107); Glomerular Filtration Rate 58 mL/min (>89); Glucose,Random 90 mg/dL (74-106); Potassium 4.7 meq/L (3.5-5.1); Sodium 138 meq/L (136-145)
[2018-03-08 01:36] LABS: Alkaline Phosphatase 84 U/L (45-117); Total Protein 7.1 g/dL (6.4-8.2)
--- NOTE | 2018-03-08 02:01 | P.HPFP ---
History of Present Illness Primary Care Physician: No Primary Care Physician <Jasvir Schmitt - 03/08/18 13:14> No Primary Care Physician <Osmin Perkins - 03/08/18 02:25> History of Present Illness: Patient case reviewed with resident physicians. Patient was taken to the OR this morning per orthopedics for left hip hemiarthroplasty. Patient presented status post fall from her assisted living facility where she initially had normal x-rays but had continued pain and CT scan showed comminuted impacted subcapital left femoral neck fracture. In the emergency department, she was triaged and admitted for surgical treatment. <Jasvir Schmitt - 03/08/18 13:14> Patient 72-year-old female with past history of COPD, dementia, depression, hypertension who presents today for left hip pain and fracture. Patient typically resides at [facility] and rehab, reports that she had a fall earlier in the week. X-rays were reported to be normal. CAT scan showed an acute closed comminuted impacted subcapital left femoral neck fracture. She was then brought to the ED. She notes she has had consistent, persistent pain over the past week, difficulty walking on the leg, denies numbness or tingling in the distal extremity. Patient was unable to communicate how she broke her hip, she stated she broke it "goofing around" and would not elaborate further. She denies hitting her head, passing out, headaches, lightheadedness, dizziness , changes in vision, neck pain, back pain. She denies any significant chest pain, left arm or jaw pain, diaphoresis, nausea, vomiting, fever, chills. No other complaints today. Past medical history, Primarily obtained via EMR as patient refuses or is unable to disclose information Medical:Hypertension, COPD, coronary artery disease, dementia, GERD, hyperlipidemia, major depressive disorder, bipolar, Alzheimer's, insomnia Surgical: hysterectomy Family: Unable to obtain Social: EtOH: denies Tobacco: continues to smoke, will not elaborate Drugs: denies <Osmin Perkins - 03/08/18 02:25> - Diagnosis (1) Fracture of femoral neck, left, closed (2) Alzheimer disease (3) HLD (hyperlipidemia) (4) Vitamin deficiency <Jasvir Schmitt 03/08/18 13:14> (1) Fracture of femoral neck, left, closed (2) Alzheimer disease (3) HLD (hyperlipidemia) (4) Vitamin deficiency <Osmin Perkins 03/08/18 02:01> Inpatient Certification: I certify that the inpatient services were ordered in accordance with Medicare regulations governing the order. This includes certification that hospital inpatient services are reasonable and necessary and in the case of services not specified as inpatient-only under 42 CFR 419.22(n), that they are appropriately provided as inpatient services in accordance to with the 2-midnight benchmark under 43 CFR 412.3(e) <Jasvir Schmitt 03/08/18 13:14> I certify that the inpatient services were ordered in accordance with Medicare regulations governing the order. This includes certification that hospital inpatient services are reasonable and necessary and in the case of services not specified as inpatient-only under 42 CFR 419.22(n), that they are appropriately provided as inpatient services in accordance to with the 2-midnight benchmark under 43 CFR 412.3(e) <Osmin Perkins 03/08/18 02:01> Estimated Total Length of Stay (Days): 2 <Osmin Perkins 03/08/18 02:01> Plans for Post Hospital Care: Not yet determined <Osmin Perkins 03/08/18 02:01> Review of Systems Constitutional: Denies chills, Denies fatigue, Denies night sweats, Denies weakness <Osmin Perkins 03/08/18 02:25> Eyes: Denies change in vision, Denies double vision, Denies loss of vision < Osmin Perkins 03/08/18 02:25> Ears, Nose, Mouth, and Throat: Denies abnormal hearing, Denies sore throat < Osmin Perkins 03/08/18 02:25> Cardiovascular: Denies chest pain, Denies excessive sweating, Denies fainting, Denies lightheadedness, Denies shortness of breath <Osmin Perkins 02:25> Respiratory: Denies cough, Denies wheezing <Osmin Perkins 03/08/18 02:25> Gastrointestinal: Denies abdominal pain, Denies bright, red blood in stools, Denies change in stools, Denies loose stools, Denies vomiting <Osmin Perkins 03/08/18 02:25> Musculoskeletal: Reports joint pain, Denies back pain <Osmin Perkins 02:25> Skin/Breast: Denies skin ulcer, Denies sores <Osmin Perkins 03/08/18 02: 25> Neurologic: Denies dizziness, Denies fainting, Denies frequent falls, Denies headache(s) <Osmin Perkins 03/08/18 02:25> Psychiatric: Denies anxiety, Denies behavioral changes <Osmin Perkins 02:25> Endocrine: Denies cold intolerance, Denies excessive sweating <Osmin Perkins 03/08/18 02:25> Hematologic/Lymphatic: Denies easy bleeding, Denies easy bruising <Osmin Perkins 03/08/18 02:25> PMFSH - History History Provided By: Patient <Osmin Perkins 03/08/18 02:01> - Medical History Medical History: Medical History (Last Reviewed 03/08/18 @ 00:05 by MARCELO Linares) Anxiety COPD (chronic obstructive pulmonary disease) Dementia Depression GERD (gastroesophageal reflux disease) H/O: hysterectomy HTN (hypertension) <Jasvir Schmitt - 03/08/18 13:14> Medical History (Last Reviewed 03/08/18 @ 00:05 by MARCELO Linares) Anxiety COPD (chronic obstructive pulmonary disease) Dementia Depression GERD (gastroesophageal reflux disease) H/O: hysterectomy HTN (hypertension) <Osmin Perkins 03/08/18 02:01> - Tobacco History Second Hand Smoke Exposure: No <Osmin ePrkins 03/08/18 02:01> Tobacco Use In Past 30 Days: No <Osmin Perkins 03/08/18 02:01> Smoking Status: Former smoker <Osmin Perkins 03/08/18 02:01> - Alcohol History How Often Do You Have a Drink Containing Alcohol: Never <Osmin Perkins 02:01> - Travel History Recent Travel in the [place] Within the Last 8 Weeks: No <Osmin Perkins 03/08 02:01> Recent Travel Out of the Country Within the Last 8 Weeks: No <Osmin Perkins 03/08/18 02:01> - Immunization History Tetanus Immunization: <5 Years <Osmin Perkins - 03/08/18 02:01> Medications and Allergies Allergies Allergy/AdvReac Type Severity Reaction Status Date / Time bismuth subsalicylate Allergy Unknown Unverified 07/10/17 19:33 mesalamine Allergy Unknown Unverified 07/10/17 19:33 <Jasvir Schmitt - 03/08/18 13:14> Home Medications Medication Instructions Recorded Confirmed Type acetaminophen [Tylenol] 650 mg PO QID PRN 03/07/18 03/07/18 History atorvastatin 20 mg PO HS 03/07/18 03/07/18 History bisacodyl [Dulcolax (bisacodyl)] [address] DAILY 03/07/18 03/07/18 History cholecalciferol (vitamin D3) 5,000 unit PO DAILY 03/07/18 03/07/18 History donepezil 10 mg PO DAILY 03/07/18 03/07/18 History ferrous sulfate 325 mg PO BID 03/07/18 03/07/18 History folic acid 0.4 mg PO DAILY 03/07/18 03/07/18 History loperamide 2 mg PO BID 03/07/18 03/07/18 History magnesium hydroxide [Milk of 30 ml PO DAILY PRN 03/07/18 03/07/18 History Magnesia] omeprazole 20 mg PO DAILY 03/07/18 03/07/18 History oxybutynin chloride [Ditropan XL] 10 mg PO DAILY 03/07/18 03/07/18 History potassium chloride 20 meq PO BID 03/07/18 03/07/18 History sodium phosphates [Enema [address] DAILY PRN 03/07/18 03/07/18 History Disposable] tramadol 50 mg PO Q4H 03/07/18 03/07/18 History trazodone 25 mg PO HS 03/07/18 03/07/18 History valproic acid 250 mg PO HS 03/07/18 03/07/18 History zolpidem [Ambien] 5 mg PO HS 03/07/18 03/07/18 History <Jasvir Schmitt - 03/08/18 13:14> Active Medications: Active Medications Acetaminophen (Tylenol) 650 mg PO Q6HR PRN PRN Reason: PAIN SCALE 1 TO 2 Hydrocodone Bitart/Acetaminophen ([place] 10/325) 1 tab PO Q4H PRN PRN Reason: PAIN SCALE 6 TO 10 Hydrocodone Bitart/Acetaminophen ([place] 5/325) 1 tab PO Q4H PRN PRN Reason: PAIN SCALE 3 TO 5 Atorvastatin Calcium (Lipitor) 20 mg PO HS [facility] Donepezil HCl (Aricept) 10 mg PO DAILY [facility] Last Admin: 03/08/18 12:40 Dose: Not Given Ferrous Sulfate (Ferosul) 325 mg PO BID [facility] Last Admin: 03/08/18 12:40 Dose: Not Given Folic Acid (Folic Acid) 0.5 mg PO DAILY [facility] Last Admin: 03/08/18 12:41 Dose: Not Given Sodium Chloride (Ns Inj) 1,000 mls @ 120 mls/hr IV.CONT .Q8H20M [facility] Last Admin: 03/08/18 10:45 Dose: 120 mls/hr Sodium Chloride (Ns Inj) 500 mls @ 30 mls/hr IV.SIG .Q10H [facility] Lactated Ringer's (Lr 1000 Ml Inj) 1,000 mls @ 30 mls/hr IV.SIG .Q24H [facility] Stop: 03/09/18 06:14 Miscellaneous Information (Misc Nursing Information) 0 each OTHER UNSCH PRN PRN Reason: SEE LABEL COMMENTS Stop: 03/09/18 12:34 Morphine Sulfate (Morphine Inj) 4 mg IV.PUSH Q3H PRN PRN Reason: BREAKTHROUGH PAIN Last Admin: 03/08/18 01:10 Dose: 4 mg Naloxone HCl (Narcan Inj) 0.4 mg IV.PUSH UNSCH PRN PRN Reason: SEE LABEL COMMENTS Pantoprazole Sodium (Protonix) 20 mg PO DAILY [facility] Last Admin: 03/08/18 12:41 Dose: Not Given Potassium Chloride (K-Dur) 20 meq PO BID [facility] Last Admin: 03/08/18 12:41 Dose: Not Given Sodium Chloride (Ns Flush) 2 ml IV.FLUSH BID [facility] Last Admin: 03/08/18 12:41 Dose: Not Given Sodium Chloride (Ns Flush) 2 ml IV.FLUSH PRN PRN PRN Reason: FLUSH AFTER USING IV ACCESS Tolterodine Tartrate (Detrol La) 10 mg PO DAILY [facility] Last Admin: 03/08/18 12:40 Dose: Not Given Trazodone HCl (Desyrel) 25 mg PO HS [facility] Valproic Acid (Depakene) 250 mg PO HS JO Vitamin D (Vitamin D3) 5,000 unit PO DAILY [facility] Last Admin: 03/08/18 12:41 Dose: Not Given <Jasvir Schmitt - 03/08/18 13:14> Active Medications Acetaminophen (Tylenol) 650 mg PO Q6HR PRN PRN Reason: PAIN SCALE 1 TO 2 Hydrocodone Bitart/Acetaminophen ([place] 10/325) 1 tab PO Q4H PRN PRN Reason: PAIN SCALE 6 TO 10 Hydrocodone Bitart/Acetaminophen ([place] 5/325) 1 tab PO Q4H PRN PRN Reason: PAIN SCALE 3 TO 5 Sodium Chloride (Ns Inj) 1,000 mls @ 120 mls/hr IV.CONT .Q8H20M [facility] Last Admin: 03/08/18 01:23 Dose: 120 mls/hr Morphine Sulfate (Morphine Inj) 4 mg IV.PUSH Q3H PRN PRN Reason: BREAKTHROUGH PAIN Last Admin: 03/08/18 01:10 Dose: 4 mg Naloxone HCl (Narcan Inj) 0.4 mg IV.PUSH UNSCH PRN PRN Reason: SEE LABEL COMMENTS Sodium Chloride (Ns Flush) 2 ml IV.FLUSH BID JO Sodium Chloride (Ns Flush) 2 ml IV.FLUSH PRN PRN PRN Reason: FLUSH AFTER USING IV ACCESS <MaddieOsminTorrey - 03/08/18 02:01> Exam Vital signs: Vital Signs 03/07/18 20:34 03/08/18 01:11 03/08/18 04:00 Temperature 98.5 F 97.7 F Pulse Rate 81 83 80 Respiratory Rate 18 18 18 Blood Pressure 144/75 H 104/58 L 141/84 H Pulse Oximetry 95 96 97 03/08/18 08:00 03/08/18 12:48 03/08/18 12:55 Temperature 97.5 F L 98.6 F Pulse Rate 85 126 H Respiratory Rate 16 12 Blood Pressure 105/61 154/89 H Pulse Oximetry 90 L 93 L 93 L Intake & Output 03/07/18 03/08/18 03/08/18 18:59 06:59 18:59 Intake Total 1999 / 1999 Output Total 100 / 100 Balance 1900 / 1900 Weight 81.1 kg Intake: IV 1000 / 1000 NS Inj 1,000 ML @ 120 mls/hr IV 950 / 950 .CONT .Q8H20M [facility] Rx#:[id number] Ancef 2 GM Premix Inj 2 gm In 50 / 50 50 ml @ 0 mls/hr IV.SIG .STK- [facility] Rx#:[id number] Anesthesia Amount 1000 / 1000 Output: Estimated Blood Loss 100 / 100 Other: # Incontinent Voids 2 Weight On Admission 81.1 kg <Jasvir Schmitt - 03/08/18 13:14> Vital Signs 03/07/18 20:34 03/08/18 01:11 Temperature 98.5 F Pulse Rate 81 83 Respiratory Rate 18 18 Blood Pressure 144/75 H 104/58 L Pulse Oximetry 95 96 Intake & Output 03/07/18 03/07/18 03/08/18 06:59 18:59 06:59 Weight 81.193 kg <Osmin Perkins - 03/08/18 02:01> Narrative: GENERAL: Laying in be on right side, refuses to turn over due to pain in left hip. SKIN: Warm and dry. Sun damaged HEAD: Atraumatic. Normocephalic. EYES: Pupils equal and round. No scleral icterus. No injection or drainage. ENT: No nasal bleeding or discharge. Mucous membranes pink and moist. NECK: Trachea midline. No JVD. CARDIOVASCULAR: Regular rate and rhythm. RESPIRATORY: No accessory muscle use. Clear to auscultation. Breath sounds equal bilaterally, wheezes in bases. GASTROINTESTINAL: Abdomen soft, non-tender, nondistended. Hepatic and splenic margins not palpable. MUSCULOSKELETAL: Extremities without clubbing, cyanosis, or edema. No obvious deformities. Refuses palpation of left hip. NEUROLOGICAL: Awake and alert. No obvious cranial nerve deficits. Motor grossly within normal limits. Normal speech. PSYCHIATRIC: Appropriate mood and affect; insight and judgment normal. <Osmin Perkins 03/08/18 02:25> Results - Labs Result diagrams: 03/08/18 00:50 03/08/18 00:50 <Jasvir Schmitt 03/08/18 13:14> Abnormal lab results 03/08/18 03/08/18 Range/Units 00:50 00:50 Hgb 15.7 H (11.6-15.3) gm/dL Hct 47.2 H (35.0-46.0) % Estimated GFR 58 L (>89) mL/min Albumin 3.1 L (3.4-5.0) g/dL Short CBC 03/08/18 Range/Units 00:50 WBC 7.6 (4.0-11.0) th/mm3 Hgb 15.7 H (11.6-15.3) gm/dL Hct 47.2 H (35.0-46.0) % Plt Count 270 (150-450) th/mm3 [facility] 03/08/18 00:50 Sodium 138 Potassium 4.7 Chloride 99 Carbon Dioxide 28.4 BUN 17 Creatinine 0.95 Calcium 9.3 Liver Function 03/08/18 Range/Units 00:50 Total Bilirubin 0.5 (0.2-1.0) mg/dL AST 31 (15-37) U/L ALT 23 (10-53) U/L Alkaline Phosphatase 84 (45-117) U/L Albumin 3.1 L (3.4-5.0) g/dL <Jasvir Schmitt - 03/08/18 13:14> Abnormal lab results 03/08/18 03/08/18 Range/Units 00:50 00:50 Hgb 15.7 H (11.6-15.3) gm/dL Hct 47.2 H (35.0-46.0) % Estimated GFR 58 L (>89) mL/min Albumin 3.1 L (3.4-5.0) g/dL Short CBC 03/08/18 Range/Units 00:50 WBC 7.6 (4.0-11.0) th/mm3 Hgb 15.7 H (11.6-15.3) gm/dL Hct 47.2 H (35.0-46.0) % Plt Count 270 (150-450) th/mm3 [facility] 03/08/18 00:50 Sodium 138 Potassium 4.7 Chloride 99 Carbon Dioxide 28.4 BUN 17 Creatinine 0.95 Calcium 9.3 Liver Function 03/08/18 Range/Units 00:50 Total Bilirubin 0.5 (0.2-1.0) mg/dL AST 31 (15-37) U/L ALT 23 (10-53) U/L Alkaline Phosphatase 84 (45-117) U/L Albumin 3.1 L (3.4-5.0) g/dL <Osmin Perkins - 03/08/18 02:01> - Imaging Impressions Chest X-Ray 03/08/18 00:01 CONCLUSION: No active disease. Remote right clavicle fracture with nonunion. Hip X-Ray 03/08/18 00:01 CONCLUSION: Subcapital fracture left femoral neck. <Jasvir Schmitt 03/08/18 13:14> Impressions Chest X-Ray 03/08/18 00:01 CONCLUSION: No active disease. Remote right clavicle fracture with nonunion. Hip X-Ray 03/08/18 00:01 CONCLUSION: Subcapital fracture left femoral neck. <Osmin Perkins 03/08/18 02:01> Caprini VTE Risk Assessment Caprini VTE Risk Assessment: Moderate/High Risk (score >= 2) <Osmin Perkins 03/08/18 02:25> Savage Risk Assessment Model: Point Value = 1 Point Value = 2 Point Value = 3 Point Value = 5 Age 41-60 Minor surgery BMI > 25 kg/m2 Swollen legs Varicose veins or History of unexplained or recurrent spontaneous Oral contraceptives or hormone replacement Sepsis (< 1 month) Serious lung disease, including pneumonia (< 1 month) Abnormal pulmonary function Acute myocardial infarction Congestive heart failure (< 1 month) History of inflammatory bowel disease Medical patient at bed rest Age 61-74 Arthroscopic surgery Major open surgery (> 45 min) Laparoscopic surgery (> 45 min) Malignancy Confined to bed (> 72 hours) Immobilizing plaster cast Central venous access Age >= 75 History of VTE Family history of VTE Factor V Leiden Prothrombin 26090P Lupus anticoagulant Anticardiolipin antibodies Elevated serum homocysteine Heparin-induced thrombocytopenia Other congenital or acquired thrombophilia Stroke (< 1 month) Elective arthroplasty Hip, pelvis, or leg fracture Acute spinal cord injury (< 1 month) <Jasvir Schmitt 03/08/18 13:14> Point Value = 1 Point Value = 2 Point Value = 3 Point Value = 5 Age 41-60 Minor surgery BMI > 25 kg/m2 Swollen legs Varicose veins or History of unexplained or recurrent spontaneous Oral contraceptives or hormone replacement Sepsis (< 1 month) Serious lung disease, including pneumonia (< 1 month) Abnormal pulmonary function Acute myocardial infarction Congestive heart failure (< 1 month) History of inflammatory bowel disease Medical patient at bed rest Age 61-74 Arthroscopic surgery Major open surgery (> 45 min) Laparoscopic surgery (> 45 min) Malignancy Confined to bed (> 72 hours) Immobilizing plaster cast Central venous access Age >= 75 History of VTE Family history of VTE Factor V Leiden Prothrombin 28048N Lupus anticoagulant Anticardiolipin antibodies Elevated serum homocysteine Heparin-induced thrombocytopenia Other congenital or acquired thrombophilia Stroke (< 1 month) Elective arthroplasty Hip, pelvis, or leg fracture Acute spinal cord injury (< 1 month) <Osmin Perkins - 03/08/18 02:01> Prophylaxis Regimen: Total Risk Factor Score Risk Level Prophylaxis Regimen 0-1 Low Early ambulation 2 Moderate Order ONE of the following: *Sequential Compression Device (SCD) *Heparin 5000 units SQ BID 3-4 Higher Order ONE of the following medications: *Heparin 5000 units SQ TID *Enoxaparin/Lovenox 40 mg SQ daily (WT < 150 kg, CrCl > 30 mL/min) *Enoxaparin/Lovenox 30 mg SQ daily (WT < 150 kg, CrCl > 10-29 mL/min) *Enoxaparin/Lovenox 30 mg SQ BID (WT < 150 kg, CrCl > 30 mL/min) AND/OR *Sequential Compression Device (SCD) 5 or more Highest Order ONE of the following medications: *Heparin 5000 units SQ TID (Preferred with Epidurals) *Enoxaparin/Lovenox 40 mg SQ daily (WT < 150 kg, CrCl > 30 mL/min) *Enoxaparin/Lovenox 30 mg SQ daily (WT < 150 kg, CrCl > 10-29 mL/min) *Enoxaparin/Lovenox 30 mg SQ BID (WT < 150 kg, CrCl > 30 mL/min) AND *Sequential Compression Device (SCD) <Jasvir Schmitt - 03/08/18 13:14> Total Risk Factor Score Risk Level Prophylaxis Regimen 0-1 Low Early ambulation 2 Moderate Order ONE of the following: *Sequential Compression Device (SCD) *Heparin 5000 units SQ BID 3-4 Higher Order ONE of the following medications: *Heparin 5000 units SQ TID *Enoxaparin/Lovenox 40 mg SQ daily (WT < 150 kg, CrCl > 30 mL/min) *Enoxaparin/Lovenox 30 mg SQ daily (WT < 150 kg, CrCl > 10-29 mL/min) *Enoxaparin/Lovenox 30 mg SQ BID (WT < 150 kg, CrCl > 30 mL/min) AND/OR *Sequential Compression Device (SCD) 5 or more Highest Order ONE of the following medications: *Heparin 5000 units SQ TID (Preferred with Epidurals) *Enoxaparin/Lovenox 40 mg SQ daily (WT < 150 kg, CrCl > 30 mL/min) *Enoxaparin/Lovenox 30 mg SQ daily (WT < 150 kg, CrCl > 10-29 mL/min) *Enoxaparin/Lovenox 30 mg SQ BID (WT < 150 kg, CrCl > 30 mL/min) AND *Sequential Compression Device (SCD) <Osmin Perkins - 03/08/18 02:01> Assessment and Plan - Assessment (1) Fracture of femoral neck, left, closed Code(s): S72.002A - Fracture of unspecified part of neck of left femur, initial encounter for closed fracture Status: Acute (2) Alzheimer disease Code(s): G30.9 - Alzheimer's disease, unspecified; F02.80 - Dementia in other diseases classified elsewhere without behavioral disturbance Status: Acute (3) HLD (hyperlipidemia) Code(s): E78.5 - Hyperlipidemia, unspecified Status: Acute (4) Vitamin deficiency Code(s): E56.9 - Vitamin deficiency, unspecified Status: Acute <Jasvir Schmitt - 03/08/18 13:14> (1) Fracture of femoral neck, left, closed Code(s): S72.002A - Fracture of unspecified part of neck of left femur, initial encounter for closed fracture Status: Acute Plan: Acute, closed, comminuted and impacted subcapital left femoral neck fracture as per CT obtained from [facility] radiology. -Consult orthopedics -Minimize movement -N.p.o. tonight for possible surgery tomorrow (2) Alzheimer disease Code(s): G30.9 - Alzheimer's disease, unspecified; F02.80 - Dementia in other diseases classified elsewhere without behavioral disturbance Status: Acute Plan: History of Alzheimer's disease. -Continue donepezil (3) HLD (hyperlipidemia) Code(s): E78.5 - Hyperlipidemia, unspecified Status: Acute Plan: History of hyperlipidemia. -Continue home atorvastatin 20 mg (4) Vitamin deficiency Code(s): E56.9 - Vitamin deficiency, unspecified Status: Acute Plan: History of vitamin deficiency. -Continue home vitamins <Osmin Perkins - 03/08/18 02:01> - Assessment and Plan 72-year-old female with past history of COPD, dementia, depression, hypertension who presents today for left femoral fracture. Fracture diagnosed by CT outpatient. Noted on hip x-ray inpatient as well. <Osmin Perkins - 03/08/18 02:25> - Attending Attestation Patient case discussed with resident physicians and patient seen independently from resident team I have read the above note and agree with the assessment/plan as discussed with me I was involved in all medical decision making for this patient Jasvri Schmitt MD The exam, history, and the medical decision-making described in the above note were completed with the assistance of the resident physician. I reviewed and agree with the findings presented. I attest that I had a [id number] encounter with the patient on the same day, and personally performed and documented my assessment and findings in the medical record. <Jasvir Schmitt - 03/08/18 13:14>
[2018-03-08] MEDS ORDERED: Metoprolol Tartrate 25 MG Tablet PO ONE (06:09)
[2018-03-08] MEDS ORDERED: Chlorhexidine Gluconate 2% 1 Pack (2 Cloths) TOPICAL ONE (06:09)
[2018-03-08] MEDS ORDERED: Sodium Chlor 0.9% Inj 500 ML IV.SIG SCH (07:00)
--- NOTE | 2018-03-08 07:25 | P.CONOP ---
[facility] Orthopedics Consult Note - [facility] Consult date: 03/08/18 Chief complaint: left subcapital hip fracture Narrative: Patient 72-year-old female with past history of COPD, dementia, depression, hypertension who presents today for left hip pain and fracture. Patient typically resides at [facility] re[facility], reports that she had a fall earlier in the week. X-rays were reported to be normal. CAT scan showed an acute closed comminuted impacted subcapital left femoral neck fracture. She was then brought to the ED. She notes she has had consistent, persistent pain over the past week, difficulty walking on the leg, denies numbness or tingling in the distal extremity. Patient states she fell when she was trying to get out of her wheelchair. At baseline she states she uses her wheelchair most of the time but does ambulate a few steps. She denies hitting her head, passing out, headaches, lightheadedness, dizziness, changes in vision, neck pain, back pain. She denies any significant chest pain, left arm or jaw pain, diaphoresis , nausea, vomiting, fever, chills. No other complaints today. Review of Systems Denies fevers, chills, nausea, vomiting, throat pain, change in vision, cough, shortness of breath, chest or abdominal pain, back pain, weakness, numbness or tingling, anxiety, rash. Reports left hip pain. [facility] - History History Provided By: Patient - Medical History Medical History: Medical History (Last Reviewed 03/08/18 @ 00:05 by MARCELO Linares) Anxiety COPD (chronic obstructive pulmonary disease) Dementia Depression GERD (gastroesophageal reflux disease) H/O: hysterectomy HTN (hypertension) - Tobacco History Second Hand Smoke Exposure: No Tobacco Use In Past 30 Days: No Smoking Status: Former smoker - Alcohol History How Often Do You Have a Drink Containing Alcohol: Never - Travel History Recent Travel in the [place] Within the Last 8 Weeks: No Recent Travel Out of the Country Within the Last 8 Weeks: No - Immunization History Tetanus Immunization: <5 Years Medications and Allergies Active Medications: Active Medications Acetaminophen (Tylenol) 650 mg PO Q6HR PRN PRN Reason: PAIN SCALE 1 TO 2 Hydrocodone Bitart/Acetaminophen ([place] 10/325) 1 tab PO Q4H PRN PRN Reason: PAIN SCALE 6 TO 10 Hydrocodone Bitart/Acetaminophen ([place] 5/325) 1 tab PO Q4H PRN PRN Reason: PAIN SCALE 3 TO 5 Atorvastatin Calcium (Lipitor) 20 mg PO HS [facility] Donepezil HCl (Aricept) 10 mg PO DAILY [facility] Ferrous Sulfate (Ferosul) 325 mg PO BID [facility] Folic Acid (Folic Acid) 0.5 mg PO DAILY [facility] Sodium Chloride (Ns Inj) 1,000 mls @ 120 mls/hr IV.CONT .Q8H20M JO Last Admin: 03/08/18 01:23 Dose: 120 mls/hr Sodium Chloride (Ns Inj) 500 mls @ 30 mls/hr IV.SIG .Q10H JO Lactated Ringer's (Lr 1000 Ml Inj) 1,000 mls @ 30 mls/hr IV.SIG .Q24H JO Stop: 03/09/18 06:14 Morphine Sulfate (Morphine Inj) 4 mg IV.PUSH Q3H PRN PRN Reason: BREAKTHROUGH PAIN Last Admin: 03/08/18 01:10 Dose: 4 mg Naloxone HCl (Narcan Inj) 0.4 mg IV.PUSH UNSCH PRN PRN Reason: SEE LABEL COMMENTS Pantoprazole Sodium (Protonix) 20 mg PO DAILY [facility] Potassium Chloride (K-Dur) 20 meq PO BID [facility] Sodium Chloride (Ns Flush) 2 ml IV.FLUSH BID [facility] Sodium Chloride (Ns Flush) 2 ml IV.FLUSH PRN PRN PRN Reason: FLUSH AFTER USING IV ACCESS Tolterodine Tartrate (Detrol La) 10 mg PO DAILY [facility] Trazodone HCl (Desyrel) 25 mg PO HS [facility] Valproic Acid (Depakene) 250 mg PO HS [facility] Vitamin D (Vitamin D3) 5,000 unit PO DAILY [facility] Allergies Allergy/AdvReac Type Severity Reaction Status Date / Time bismuth subsalicylate Allergy Unknown Unverified 07/10/17 19:33 mesalamine Allergy Unknown Unverified 07/10/17 19:33 Home Medications Medication Instructions Recorded Confirmed Type acetaminophen [Tylenol] 650 mg PO QID PRN 03/07/18 03/07/18 History atorvastatin 20 mg PO HS 03/07/18 03/07/18 History bisacodyl [Dulcolax (bisacodyl)] 10 mg TX DAILY 03/07/18 03/07/18 History cholecalciferol (vitamin D3) 5,000 unit PO DAILY 03/07/18 03/07/18 History donepezil 10 mg PO DAILY 03/07/18 03/07/18 History ferrous sulfate 325 mg PO BID 03/07/18 03/07/18 History folic acid 0.4 mg PO DAILY 03/07/18 03/07/18 History loperamide 2 mg PO BID 03/07/18 03/07/18 History magnesium hydroxide [Milk of 30 ml PO DAILY PRN 03/07/18 03/07/18 History Magnesia] omeprazole 20 mg PO DAILY 03/07/18 03/07/18 History oxybutynin chloride [Ditropan XL] 10 mg PO DAILY 03/07/18 03/07/18 History potassium chloride 20 meq PO BID 03/07/18 03/07/18 History sodium phosphates [Enema 59 ml TX DAILY PRN 03/07/18 03/07/18 History Disposable] tramadol 50 mg PO Q4H 03/07/18 03/07/18 History trazodone 25 mg PO HS 03/07/18 03/07/18 History valproic acid 250 mg PO HS 03/07/18 03/07/18 History zolpidem [Ambien] 5 mg PO HS 03/07/18 03/07/18 History Exam Vital signs: Vital Signs 03/07/18 20:34 03/08/18 01:11 03/08/18 04:00 Temperature 98.5 F 97.7 F Pulse Rate 81 83 80 Respiratory Rate 18 18 18 Blood Pressure 144/75 H 104/58 L 141/84 H Pulse Oximetry 95 96 97 Intake & Output 03/07/18 03/08/18 03/08/18 18:59 06:59 18:59 Weight 81.1 kg Other: # Incontinent Voids 2 Narrative: Awake, alert, no acute distress Normocephalic Pupils equal No JVD Moist mucous membranes Soft nontender abdomen Nonlabored respirations Regular rate Left lower extremity: Positive logroll. Unable to assess hip and knee range of motion due to pain. Patient demonstrates positive EHL, FHL, dorsiflexion and plantarflexion. Sensation intact. Brisk cap refill. Bilateral upper extremities and right lower extremity: No tenderness palpation or visible deformities. Full active range of motion and strength throughout. Sensation intact. Brisk cap refill. Normal affect No rash Results - Labs Result Diagrams: 03/08/18 00:50 03/08/18 00:50 Labs: Laboratory Results - last 24 hr 03/08/18 03/08/18 03/08/18 00:50 00:50 00:50 WBC 7.6 RBC 5.25 Hgb 15.7 H Hct 47.2 H MCV 90.0 MCH 30.0 MCHC 33.3 RDW 16.3 Plt Count 270 MPV 9.0 Sodium 138 Potassium 4.7 Chloride 99 Carbon Dioxide 28.4 Anion Gap 11 BUN 17 Creatinine 0.95 Estimated GFR 58 L Random Glucose 90 Calcium 9.3 Total Bilirubin 0.5 AST 31 ALT 23 Alkaline Phosphatase 84 Total Protein 7.1 Albumin 3.1 L Blood Type O Negative Blood Type Recheck Not needed Antibody Screen Negative - Diagnostic results Imaging: Impressions Chest X-Ray 03/08/18 00:01 CONCLUSION: No active disease. Remote right clavicle fracture with nonunion. Hip X-Ray 03/08/18 00:01 CONCLUSION: Subcapital fracture left femoral neck. Assessment and Plan - Assessment and Plan 72-year-old female with multiple medical problems, minimal ambulator with left subcapital displaced femoral neck fracture, suspect likely several days old given history Options of management were discussed with the patient. I explained to the patient that given the location of her fracture, the displacement and likely several days old, I would recommend a left hip hemiarthroplasty. Risks, benefits, alternatives were discussed. Risks of surgery including but not limited to: Infection, periprosthetic fracture, hardware malposition or failure , persistent hip pain and/or stiffness, hip weakness, leg length discrepancy, hip instability including possible recurrent dislocations, neurovascular injury , possible need for further surgery, and other unforeseen complications were all discussed with the patient. At this time she has consented to the above- mentioned procedure. Patient has been n.p.o. since midnight with plan for surgery likely today.
[2018-03-08 08:41] LABS: Prothrombin Time 10.6 sec (9.8-11.6)
[2018-03-08 08:42] LABS: Activated Partial Thrombo Time 26.6 sec (24.3-30.1)
[2018-03-08] MEDS ORDERED: Neostigmine Inj 5 MG/5 ML Syringe IV.PUSH ONE (09:38)
[2018-03-08] MEDS ORDERED: Phenylephrine/NS 1000 MCG/10ML Syringe IV.PUSH ONE (09:38)
[2018-03-08] MEDS ORDERED: Lidocaine PF 1% Inj 5 ML Syringe OTHER ONE (09:38)
[2018-03-08] MEDS ORDERED: Sodium Chlor 0.9% Inj 250 ML IV.CONT ONE (09:38)
[2018-03-08] MEDS ORDERED: Glycopyrrolate Inj 1 MG/5 ML Syringe IV.PUSH ONE (09:38)
[2018-03-08] MEDS ORDERED: ceFAZolin 2 GM Premix Inj 2 GM/50 ML PIGGYBACK IV.SIG ONE (09:42)
--- NOTE | 2018-03-08 12:20 | P.BOP ---
Date of procedure: 03/08/18 Procedure: Left hip hemiarthroplasty Implants: Depuy cemented femoral stem Anesthesia: GETA Surgeon: Carli Moon MD Estimated blood loss (mL): 50 Pathology: none sent Condition: stable Disposition: PACU
[2018-03-08] MEDS ORDERED: fentaNYL Citrate Inj 100 MCG/2 ML Ampul ONE (12:39)
[2018-03-08] MEDS: Ferrous Sulfate 325 MG Tablet PO SCH ×2 (12:40→20:18)
[2018-03-08] MEDS: Tolterodine Tartrate LA 4 MG Capsule PO SCH (12:40)
[2018-03-08] MEDS: Pantoprazole Sodium 20 MG DR Tablet PO SCH (12:41)
[2018-03-08] MEDS: Folic Acid 1 MG Tablet PO SCH (12:41)
[2018-03-08] MEDS ORDERED: *morphine SULFATE 4 MG/ML PERIprocedure ONLY ONE (12:43)
--- NOTE | 2018-03-08 13:06 | ECG ---
Date Performed: 03/08/2018 Time Performed: 00:24:11 PTAGE: 72 years EKG: Sinus rhythm WITH FIRST DEGREE AV BLOCK AND FREQUENT SUPRAVENTRICULAR PREMATURE COMPLEXES, SOME CONDUCTED AND HEMAL E BLOCKED Compared to previous tracing, the blocked PAC is new, otherwise no significant change. ABNO RMAL ECG PREVIOUS TRACING : 07/10/2017 19.20 DOCTOR: Nick Mack Interpretating Date/Time 03/08/2018 13:04:46
--- NOTE | 2018-03-08 18:58 | XR ---
EXAM DATE: 03/08/2018 12:00 AM EDT AGE/SEX: 72 years / Female INDICATIONS: Post-op left hip replacement. CLINICAL DATA: This is the patient's subsequent encounter. Patient reports that signs and symptoms h ave been present for 2 days and indicates a pain score of 7/10. MEDICAL/SURGICAL HISTORY: . Cerebrovascular disease. Hypertension. Dementia. . Left total hip replacement. [place] [facility]. . FINDINGS: Interval left hip arthroplasty. Arthropathic components appear in gross anatomic alignment and grossl y well-positioned. Remaining osseous structures appear intact. Remainder of the exam is unchanged. CONCLUSION: 1. Left hip arthroplasty in gross anatomic alignment without acute fracture. Electronically signed by: Jose Nuñez MD 03/08/2018 6:57 PM EDT
[2018-03-08] MEDS: traZODone 50 MG Tablet PO SCH (20:18)
[2018-03-08] MEDS ORDERED: Post-op Orders (for Pharmacy) OTHER STA (21:30)
[2018-03-09] MEDS: Enoxaparin Inj 40 MG/0.4 ML Syringe SQ SCH (00:44)
[2018-03-09] MEDS: Sod Chloride 0.9% Inj 1,000 ML IV.CONT SCH (01:49)
[2018-03-09 05:28] LABS: Hematocrit 45.6 % (35.0-46.0); Hemoglobin 15.1 gm/dL (11.6-15.3); Mean Corpuscular HGB Conc 33.1 % (32.0-36.0); Mean Corpuscular Hemoglobin 29.8 pg (27.0-34.0); Mean Corpuscular Volume 90.2 fL (80.0-100.0); Mean Platelet Volume 8.7 fL (7.0-11.0); Platelet Count 216 th/mm3 (150-450); Red Blood Count 5.06 mil/mm3 (4.00-5.30); Red Cell Distribution Width 16.1 % (11.6-17.2)
[2018-03-09 06:09] LABS: Calcium 8.8 mg/dL (8.5-10.1); Carbon Dioxide 27.2 meq/L (21.0-32.0)
[2018-03-09 06:16] LABS: Potassium 5.4 meq/L (3.5-5.1)
--- NOTE | 2018-03-09 06:56 | P.PNOP ---
Subjective Interval history: Patient resting comfortably. Reports left hip pain improved since surgery Physical Exam Vital signs: Vital Signs 03/08/18 08:00 03/08/18 12:35 03/08/18 12:45 Temperature 97.5 F L 98.6 F Pulse Rate 85 126 H 110 H Respiratory Rate 16 12 14 Blood Pressure 105/61 154/89 H 150/79 H Pulse Oximetry 90 L 93 L 94 L 03/08/18 12:48 03/08/18 12:55 03/08/18 13:00 Temperature 98.6 F Pulse Rate 126 H 102 H Respiratory Rate 12 16 Blood Pressure 154/89 H 149/80 H Pulse Oximetry 93 L 93 L 94 L 03/08/18 13:10 03/08/18 16:00 03/08/18 19:17 Temperature 97.8 F 97.5 F L Pulse Rate 103 H 103 H Respiratory Rate 16 16 18 Blood Pressure 148/87 H 158/79 H Pulse Oximetry 95 92 L 03/08/18 20:00 03/08/18 21:22 03/08/18 23:40 Temperature 98 F Pulse Rate 87 Respiratory Rate 17 18 19 Blood Pressure 140/83 Pulse Oximetry 93 L 03/09/18 00:00 03/09/18 04:00 03/09/18 04:42 Temperature 98 F 98.4 F Pulse Rate 86 92 H Respiratory Rate 17 17 20 Blood Pressure 110/74 102/55 L Pulse Oximetry 92 L 92 L Intake & Output 03/08/18 03/08/18 03/09/18 06:59 18:59 06:59 Intake Total 1999 / 1999 1200 / 1200 Output Total 100 / 100 Balance 1900 / 1900 1200 / 1200 Weight 81.1 kg 81.5 kg Intake: IV 1000 / 1000 1200 / 1200 NS Inj 1,000 ML @ 120 mls/hr IV 950 / 950 1000 / 1000 .CONT .Q8H20M JO Rx#:[id number] Ancef 2 GM Premix Inj 2 gm In 50 / 50 50 ml @ 0 mls/hr IV.SIG .STK- MED ONE Rx#:[id number] Ancef Inj 1,000 MG In NS Inj 200 / 200 100 ML @ 200 mls/hr IV.SIG Q8H JO Rx#:[id number] Oral 0 / 0 Anesthesia Amount 1000 / 1000 Output: Estimated Blood Loss 100 / 100 Other: # Voids 6 # Incontinent Voids 2 Weight On Admission 81.1 kg Narrative: Awake, alert, no acute distress Left lower extremity: Dressing in place along with knee immobilizer. Abduction pillow in place. Patient damages positive EHL, FHL, dorsiflexion and plantar flexion. Sensation intact. Brisk cap refill. Negative Homans. Results - Labs CBC & Chem 7: 03/09/18 03:46 03/09/18 03:46 Laboratory Results - last 24 hr 03/08/18 03/09/18 03/09/18 07:30 03:46 03:46 WBC 7.0 RBC 5.06 Hgb 15.1 Hct 45.6 MCV 90.2 MCH 29.8 MCHC 33.1 RDW 16.1 Plt Count 216 MPV 8.7 PT 10.6 INR 1.0 APTT 26.6 Sodium 135 L Potassium 5.4 H Chloride 99 Carbon Dioxide 27.2 Anion Gap 9 BUN 20 H Creatinine 0.92 Estimated GFR 60 L Random Glucose 76 Calcium 8.8 - Imaging Impressions Pelvis X-Ray 03/08/18 00:00 CONCLUSION: 1. Left hip arthroplasty in gross anatomic alignment without acute fracture. Assessment and Plan - Assessment and Plan 72-year-old female with multiple medical problems, minimal ambulator, POD#1 s/p L hip hemiarthroplasty 1. Weightbearing as tolerated left lower extremity. Anterolateral hip precautions. No active abduction exercises 2. Physical therapy for mobilization 3. Lovenox for DVT prophylaxis 4. Discharge planning: Patient lives at [facility] and likely will require placement.
[2018-03-09] MEDS: Tolterodine Tartrate LA 4 MG Capsule PO SCH (08:32)
[2018-03-09] MEDS: Ferrous Sulfate 325 MG Tablet PO SCH ×2 (08:33→21:10)
[2018-03-09] MEDS: Pantoprazole Sodium 20 MG DR Tablet PO SCH (08:33)
[2018-03-09] MEDS: Folic Acid 1 MG Tablet PO SCH (08:33)
[2018-03-09] MEDS: Multivitamin/Minerals Therapeutic Tablet PO SCH (08:33)
[2018-03-09] MEDS: Morphine Inj 4 MG/ML Vial IV.PUSH PRN (11:30)
--- NOTE | 2018-03-09 12:33 | P.PNFP ---
Subjective Interval history: Patient was seen and evaluated this morning. Her pain is well-controlled. She denies chest pain, shortness of breath, nausea, vomiting, diarrhea and constipation. Per nursing staff, patient has been non-compliant about getting out of bed and working with PT. Patient reports desire to return to [facility], where she resided prior to hospitalization. All questions were answered. <Radha Velarde - 03/09/18 12:32> Results - Labs Result diagrams: 03/09/18 03:46 03/09/18 03:46 <Jasvir Schmitt - 03/09/18 14:26> Abnormal lab results 03/09/18 Range/Units 03:46 Sodium 135 L (136-145) meq/L Potassium 5.4 H (3.5-5.1) meq/L BUN 20 H (7-18) mg/dL Estimated GFR 60 L (>89) mL/min Short CBC 03/09/18 Range/Units 03:46 WBC 7.0 (4.0-11.0) th/mm3 Hgb 15.1 (11.6-15.3) gm/dL Hct 45.6 (35.0-46.0) % Plt Count 216 (150-450) th/mm3 [facility] 03/09/18 03:46 Sodium 135 L Potassium 5.4 H Chloride 99 Carbon Dioxide 27.2 BUN 20 H Creatinine 0.92 Calcium 8.8 <Jasvir Schmitt - 03/09/18 14:26> Abnormal lab results 03/09/18 Range/Units 03:46 Sodium 135 L (136-145) meq/L Potassium 5.4 H (3.5-5.1) meq/L BUN 20 H (7-18) mg/dL Estimated GFR 60 L (>89) mL/min Short CBC 03/09/18 Range/Units 03:46 WBC 7.0 (4.0-11.0) th/mm3 Hgb 15.1 (11.6-15.3) gm/dL Hct 45.6 (35.0-46.0) % Plt Count 216 (150-450) th/mm3 [facility] 03/09/18 03:46 Sodium 135 L Potassium 5.4 H Chloride 99 Carbon Dioxide 27.2 BUN 20 H Creatinine 0.92 Calcium 8.8 <Radha Velarde - 03/09/18 12:32> - Imaging Impressions Pelvis X-Ray 03/08/18 00:00 CONCLUSION: 1. Left hip arthroplasty in gross anatomic alignment without acute fracture. <Jasvir Schmitt - 03/09/18 14:26> Impressions Pelvis X-Ray 03/08/18 00:00 CONCLUSION: 1. Left hip arthroplasty in gross anatomic alignment without acute fracture. <SydGregoriaRadha - 03/09/18 12:32> Physical Exam Vital signs: Vital Signs 03/08/18 16:00 03/08/18 19:17 03/08/18 20:00 Temperature 97.5 F L 98 F Pulse Rate 103 H 87 Respiratory Rate 16 18 17 Blood Pressure 158/79 H 140/83 Pulse Oximetry 92 L 93 L 03/08/18 21:22 03/08/18 23:40 03/09/18 00:00 Temperature 98 F Pulse Rate 86 Respiratory Rate 18 19 17 Blood Pressure 110/74 Pulse Oximetry 92 L 03/09/18 04:00 03/09/18 04:42 03/09/18 08:00 Temperature 98.4 F 98.1 F Pulse Rate 92 H 102 H Respiratory Rate 17 20 18 Blood Pressure 102/55 L 140/77 Pulse Oximetry 92 L 94 L 03/09/18 12:00 Temperature 98.0 F Pulse Rate 97 H Respiratory Rate 18 Blood Pressure 132/74 Pulse Oximetry 93 L Intake & Output 03/08/18 03/09/18 03/09/18 18:59 06:59 18:59 Intake Total 2000 / 2000 1200 / 1200 Output Total 100 / 100 Balance 1900 / 1900 1200 / 1200 Weight 81.5 kg Intake: IV 1000 / 1000 1200 / 1200 NS Inj 1,000 ML @ 120 mls/hr IV 950 / 950 1000 / 1000 .CONT .Q8H20M [facility] Rx#:[id number] Ancef 2 GM Premix Inj 2 gm In 50 / 50 50 ml @ 0 mls/hr IV.SIG .STK- MED ONE Rx#:[id number] Ancef Inj 1,000 MG In NS Inj 200 / 200 100 ML @ 200 mls/hr IV.SIG Q8H JO Rx#:[id number] Oral 0 / 0 Anesthesia Amount 1000 / 1000 Output: Estimated Blood Loss 100 / 100 Other: # Voids 6 <Jasvir Schmitt - 03/09/18 14:26> Vital Signs 03/08/18 12:35 03/08/18 12:45 03/08/18 12:48 Temperature 98.6 F 98.6 F Pulse Rate 126 H 110 H 126 H Respiratory Rate 12 14 12 Blood Pressure 154/89 H 150/79 H 154/89 H Pulse Oximetry 93 L 94 L 93 L 03/08/18 12:55 03/08/18 13:00 03/08/18 13:10 Temperature 97.8 F Pulse Rate 102 H 103 H Respiratory Rate 16 16 Blood Pressure 149/80 H 148/87 H Pulse Oximetry 93 L 94 L 95 03/08/18 16:00 03/08/18 19:17 03/08/18 20:00 Temperature 97.5 F L 98 F Pulse Rate 103 H 87 Respiratory Rate 16 18 17 Blood Pressure 158/79 H 140/83 Pulse Oximetry 92 L 93 L 03/08/18 21:22 03/08/18 23:40 03/09/18 00:00 Temperature 98 F Pulse Rate 86 Respiratory Rate 18 19 17 Blood Pressure 110/74 Pulse Oximetry 92 L 03/09/18 04:00 03/09/18 04:42 03/09/18 08:00 Temperature 98.4 F 98.1 F Pulse Rate 92 H 102 H Respiratory Rate 17 20 18 Blood Pressure 102/55 L 140/77 Pulse Oximetry 92 L 94 L <Radha Velarde - 03/09/18 12:32> Narrative: GENERAL: Elderly female in no acute distress. SKIN: Warm and dry. CARDIOVASCULAR: Regular rate and rhythm without murmurs, gallops, or rubs. RESPIRATORY: Breath sounds equal bilaterally. No accessory muscle use. GASTROINTESTINAL: Abdomen soft, non-tender, nondistended. MUSCULOSKELETAL: Left lower extremity: Dressing in place along with knee immobilizer. Patient able to move foot and toes. No edema appreciated. <Radha Velarde - 03/09/18 12:32> Assessment and Plan - Assessment (1) Fracture of femoral neck, left, closed Code(s): S72.002A - Fracture of unspecified part of neck of left femur, initial encounter for closed fracture Status: Acute (2) Alzheimer disease Code(s): G30.9 - Alzheimer's disease, unspecified; F02.80 - Dementia in other diseases classified elsewhere without behavioral disturbance Status: Acute (3) HLD (hyperlipidemia) Code(s): E78.5 - Hyperlipidemia, unspecified Status: Acute (4) Vitamin deficiency Code(s): E56.9 - Vitamin deficiency, unspecified Status: Acute (5) Nutrition, metabolism, and development symptoms Code(s): R63.8 - Other symptoms and signs concerning food and fluid intake Status: Acute (6) DVT prophylaxis Status: Acute <Jasvir Schmitt - 03/09/18 14:26> (1) Fracture of femoral neck, left, closed Code(s): S72.002A - Fracture of unspecified part of neck of left femur, initial encounter for closed fracture Status: Acute Plan: Acute, closed, comminuted and impacted subcapital left femoral neck fracture as per CT obtained from [facility] radiology. s/p L hip hemiarthroplasty on 03/08. Pain Control: Tylenol 650mg PO q6hr PRN Pain 1-2. Titus 5/325 PO q4hr PRN Pain 3-5. Titus 10/325 PO q4hr PRN Pain 6-10. Morphine 4mg IV q3hr PRN Breakthrough Pain. Weightbearing as tolerated; anterolateral hip precautions and no active abduction exercises. PT evaluate and treat. Lovenox for DVT prophylaxis. (2) Alzheimer disease Code(s): G30.9 - Alzheimer's disease, unspecified; F02.80 - Dementia in other diseases classified elsewhere without behavioral disturbance Status: Acute Plan: History of Alzheimer's disease. Continue home donepezil. (3) HLD (hyperlipidemia) Code(s): E78.5 - Hyperlipidemia, unspecified Status: Acute Plan: History of hyperlipidemia. Continue home atorvastatin 20 mg. (4) Vitamin deficiency Code(s): E56.9 - Vitamin deficiency, unspecified Status: Acute Plan: History of vitamin deficiency. Continue home vitamins. (5) Nutrition, metabolism, and development symptoms Code(s): R63.8 - Other symptoms and signs concerning food and fluid intake Status: Acute Plan: Fluids: * Tolerating PO. Electrolytes: * Monitor and replete as necessary. Nutrition: * Regular diet. (6) DVT prophylaxis Status: Acute Plan: Lovenox 40mg SQ daily. <Radha Velarde - 03/09/18 12:19> - Assessment and Plan Discharge Planning: Pending clinical improvement and placement. CM to assist with placement needs. <Radha Velarde - 03/09/18 12:32> - Attending Attestation Pt. examined and case discussed with resident physicians. I have read the above note and agree with the assessment and plan as discussed with me. I was involved in all medical decision making for this patient. Jasvir Schmitt MD <Jasvir Schmitt - 03/09/18 14:26>
[2018-03-09] MEDS: traZODone 50 MG Tablet PO SCH (21:10)
[2018-03-10] MEDS: Enoxaparin Inj 40 MG/0.4 ML Syringe SQ SCH (01:03)
[2018-03-10 07:36] LABS: Carbon Dioxide 30.4 meq/L (21.0-32.0); Potassium 4.2 meq/L (3.5-5.1)
[2018-03-10 07:37] LABS: Calcium 9.1 mg/dL (8.5-10.1)
[2018-03-10] MEDS: Folic Acid 1 MG Tablet PO SCH (08:58)
[2018-03-10] MEDS: Multivitamin/Minerals Therapeutic Tablet PO SCH (08:59)
[2018-03-10] MEDS: Ferrous Sulfate 325 MG Tablet PO SCH ×2 (08:59→21:20)
[2018-03-10] MEDS: Tolterodine Tartrate LA 4 MG Capsule PO SCH (08:59)
[2018-03-10] MEDS: Pantoprazole Sodium 20 MG DR Tablet PO SCH (08:59)
--- NOTE | 2018-03-10 09:50 | P.PNFP ---
Subjective Interval history: Patient doing well, wants to go home today. Denies any chest pain, SOB, or leg pain/swelling. Vitals stable and pain controlled. <Marquita Ross N - 03/10/18 11:02> Results - Labs Result diagrams: 03/09/18 03:46 03/10/18 04:56 <Jasvir Schmitt - 03/10/18 21:12> Abnormal lab results 03/10/18 Range/Units 04:56 Sodium 135 L (136-145) meq/L Chloride 97 L (98-107) meq/L Estimated GFR 69 L (>89) mL/min [facility] 03/10/18 04:56 Sodium 135 L Potassium 4.2 D Chloride 97 L Carbon Dioxide 30.4 BUN 15 Creatinine 0.82 Calcium 9.1 <Jasvir Schmitt - 03/10/18 21:12> Abnormal lab results 03/10/18 Range/Units 04:56 Sodium 135 L (136-145) meq/L Chloride 97 L (98-107) meq/L Estimated GFR 69 L (>89) mL/min [facility] 03/10/18 04:56 Sodium 135 L Potassium 4.2 D Chloride 97 L Carbon Dioxide 30.4 BUN 15 Creatinine 0.82 Calcium 9.1 <Marquita Ross N - 03/10/18 09:50> Physical Exam Vital signs: Vital Signs 03/10/18 00:00 03/10/18 01:53 03/10/18 01:55 Temperature 99.1 F Pulse Rate 95 H Respiratory Rate 16 16 16 Blood Pressure 126/77 Pulse Oximetry 93 L 03/10/18 04:00 03/10/18 08:00 03/10/18 09:00 Temperature 98.9 F 97.8 F Pulse Rate 86 97 H Respiratory Rate 17 16 14 Blood Pressure 128/79 127/82 Pulse Oximetry 92 L 94 L 03/10/18 12:00 03/10/18 16:00 03/10/18 17:38 Temperature 98 F 98.1 F Pulse Rate 78 95 H Respiratory Rate 18 18 12 Blood Pressure 123/61 148/72 H Pulse Oximetry 93 L 95 03/10/18 20:00 Temperature 98.2 F Pulse Rate 100 H Respiratory Rate 16 Blood Pressure 122/70 Pulse Oximetry 97 Intake & Output 03/10/18 03/10/18 03/11/18 06:59 18:59 06:59 Intake Total 1400 / 1400 Balance 1400 / 1400 Weight 82.5 kg Intake: IV 100 / 100 Ancef Inj 1,000 MG In NS Inj 100 / 100 100 ML @ 200 mls/hr IV.SIG Q8H JO Rx#:[id number] Oral 1300 / 1300 Other: # Voids 3 2 # Incontinent Voids 1 # Urine Diapers 3 <Jasvir Schmitt - 03/10/18 21:12> Vital Signs 03/09/18 12:00 03/09/18 19:00 03/09/18 20:00 Temperature 98.0 F 98.0 F 97.9 F Pulse Rate 97 H 98 H 98 H Respiratory Rate 18 18 17 Blood Pressure 132/74 106/66 130/62 Pulse Oximetry 93 L 92 L 95 03/10/18 00:00 03/10/18 01:53 03/10/18 01:55 Temperature 99.1 F Pulse Rate 95 H Respiratory Rate 16 16 16 Blood Pressure 126/77 Pulse Oximetry 93 L 03/10/18 04:00 03/10/18 08:00 03/10/18 09:00 Temperature 98.9 F 97.8 F Pulse Rate 86 97 H Respiratory Rate 17 16 14 Blood Pressure 128/79 127/82 Pulse Oximetry 92 L 94 L Intake & Output 03/09/18 03/10/18 03/10/18 18:59 06:59 18:59 Intake Total 1400 / 1400 Balance 1400 / 1400 Weight 82.5 kg Intake: IV 100 / 100 Ancef Inj 1,000 MG In NS Inj 100 / 100 100 ML @ 200 mls/hr IV.SIG Q8H JO Rx#:[id number] Oral 1300 / 1300 Other: # Voids 4 3 # Incontinent Voids 1 1 # Urine Diapers 3 <Yoel Rossana N - 03/10/18 09:50> Narrative: GENERAL: This is a well-nourished, well-developed patient, in no apparent distress. CARDIOVASCULAR: Regular rate and rhythm without murmurs, gallops, or rubs. RESPIRATORY: Clear to auscultation. Breath sounds equal bilaterally. No wheezes , rales, or rhonchi. GASTROINTESTINAL: Abdomen soft, non-tender, nondistended. Normal active bowel sounds MUSCULOSKELETAL: Extremities without clubbing, cyanosis, or edema. Bandage over left hip clean, dry, and intact. NEURO: Alert & Oriented x4 to person, place, time, situation. Moves all ext x4 <CodyYoelMarquita N - 03/10/18 11:02> Assessment and Plan - Assessment (1) Fracture of femoral neck, left, closed Code(s): S72.002A - Fracture of unspecified part of neck of left femur, initial encounter for closed fracture Status: Acute (2) Alzheimer disease Code(s): G30.9 - Alzheimer's disease, unspecified; F02.80 - Dementia in other diseases classified elsewhere without behavioral disturbance Status: Acute (3) HLD (hyperlipidemia) Code(s): E78.5 - Hyperlipidemia, unspecified Status: Acute (4) Vitamin deficiency Code(s): E56.9 - Vitamin deficiency, unspecified Status: Acute (5) Nutrition, metabolism, and development symptoms Code(s): R63.8 - Other symptoms and signs concerning food and fluid intake Status: Acute (6) DVT prophylaxis Status: Acute <Jasvir Schmitt - 03/10/18 21:12> (1) Fracture of femoral neck, left, closed Code(s): S72.002A - Fracture of unspecified part of neck of left femur, initial encounter for closed fracture Status: Acute Plan: Acute, closed, comminuted and impacted subcapital left femoral neck fracture as per CT obtained from [facility] radiology. s/p L hip hemiarthroplasty on 03/08. Pain Control: Adjusted in preparation for discharge. Tylenol 650mg PO q6hr PRN Pain 1-2. [place] 5/325 PO q6hr PRN Pain 3-5. [place] 10/325 PO q8hr PRN Pain 6-10. Morphine DC'd Weightbearing as tolerated; anterolateral hip precautions and no active abduction exercises. PT continue outpatient. Lovenox for DVT prophylaxis for now. Plan for Xarelto outpatient. (2) Alzheimer disease Code(s): G30.9 - Alzheimer's disease, unspecified; F02.80 - Dementia in other diseases classified elsewhere without behavioral disturbance Status: Acute Plan: History of Alzheimer's disease. Continue home donepezil. (3) HLD (hyperlipidemia) Code(s): E78.5 - Hyperlipidemia, unspecified Status: Acute Plan: History of hyperlipidemia. Continue home atorvastatin 20 mg. (4) Vitamin deficiency Code(s): E56.9 - Vitamin deficiency, unspecified Status: Acute Plan: History of vitamin deficiency. Continue home vitamins. (5) Nutrition, metabolism, and development symptoms Code(s): R63.8 - Other symptoms and signs concerning food and fluid intake Status: Acute Plan: Fluids: * Tolerating PO. Electrolytes: * Monitor and replete as necessary. Nutrition: * Regular diet. (6) DVT prophylaxis Status: Acute Plan: Lovenox 40mg SQ daily. <Marquita Ross - 03/10/18 16:34> - Assessment and Plan 72-year-old female with past history of COPD, dementia, depression, hypertension who presents today for left femoral fracture. Fracture diagnosed by CT outpatient. Noted on hip x-ray inpatient as well. Underwent hip hemiathroplasty on 03/08. Plan for Xarelto 10 mg for 3 weeks outpatient. Will follow up with Ortho in 203 weeks. Plan for DC back to [facility]. Needs to stay another night to qualify for rehab there. <Marquita Ross - 03/10/18 16:34> - Attending Attestation Pt. examined and case discussed with resident physicians. I have read the above note and agree with the assessment and plan as discussed with me. I was involved in all medical decision making for this patient. Jasvir Schmitt MD <Jasvir Schmitt - 03/10/18 21:12>
--- NOTE | 2018-03-10 10:10 | P.PNOP ---
Subjective Interval history: Patient resting currently this morning. Lying on her left hip Physical Exam Vital signs: Vital Signs 03/09/18 12:00 03/09/18 19:00 03/09/18 20:00 Temperature 98.0 F 98.0 F 97.9 F Pulse Rate 97 H 98 H 98 H Respiratory Rate 18 18 17 Blood Pressure 132/74 106/66 130/62 Pulse Oximetry 93 L 92 L 95 03/10/18 00:00 03/10/18 01:53 03/10/18 01:55 Temperature 99.1 F Pulse Rate 95 H Respiratory Rate 16 16 16 Blood Pressure 126/77 Pulse Oximetry 93 L 03/10/18 04:00 03/10/18 08:00 03/10/18 09:00 Temperature 98.9 F 97.8 F Pulse Rate 86 97 H Respiratory Rate 17 16 14 Blood Pressure 128/79 127/82 Pulse Oximetry 92 L 94 L Intake & Output 03/09/18 03/10/18 03/10/18 18:59 06:59 18:59 Intake Total 1400 / 1400 Balance 1400 / 1400 Weight 82.5 kg Intake: IV 100 / 100 Ancef Inj 1,000 MG In NS Inj 100 / 100 100 ML @ 200 mls/hr IV.SIG Q8H JO Rx#:[id number] Oral 1300 / 1300 Other: # Voids 4 3 # Incontinent Voids 1 1 # Urine Diapers 3 Narrative: awake, alert, no acute distress Left lower extremity: Dressing in place. Negative Homans. Patient appears neurovascularly intact distally. Brisk cap refill. Results - Labs CBC & Chem 7: 03/09/18 03:46 03/10/18 04:56 Laboratory Results - last 24 hr 03/10/18 04:56 Sodium 135 L Potassium 4.2 D Chloride 97 L Carbon Dioxide 30.4 Anion Gap 8 BUN 15 Creatinine 0.82 Estimated GFR 69 L Random Glucose 82 Calcium 9.1 Assessment and Plan - Assessment and Plan 72-year-old female with multiple medical problems, minimal ambulator, POD#2 s/p L hip hemiarthroplasty 1. Weightbearing as tolerated left lower extremity. Anterolateral hip precautions. No active abduction exercises 2. Physical therapy for mobilization 3. Lovenox for DVT prophylaxis while inpatient. Would switch to Xarelto upon discharge for 3 weeks. 4. Discharge planning: Patient lives at [facility] and likely will require placement.
[2018-03-10] MEDS: traZODone 50 MG Tablet PO SCH (21:20)
[2018-03-11] MEDS: Enoxaparin Inj 40 MG/0.4 ML Syringe SQ SCH (01:10)
--- NOTE | 2018-03-11 06:38 | P.PNOP ---
Subjective Interval history: Resting comfortably Physical Exam Vital signs: Vital Signs 03/10/18 08:00 03/10/18 09:00 03/10/18 12:00 Temperature 97.8 F 98 F Pulse Rate 97 H 78 Respiratory Rate 16 14 18 Blood Pressure 127/82 123/61 Pulse Oximetry 94 L 93 L 03/10/18 16:00 03/10/18 17:38 03/10/18 20:00 Temperature 98.1 F 98.2 F Pulse Rate 95 H 100 H Respiratory Rate 18 12 16 Blood Pressure 148/72 H 122/70 Pulse Oximetry 95 97 03/10/18 23:28 03/11/18 04:00 Temperature 98.0 F 98.3 F Pulse Rate 67 90 Respiratory Rate 18 18 Blood Pressure 115/65 121/69 Pulse Oximetry 96 94 L Intake & Output 03/10/18 03/10/18 03/11/18 06:59 18:59 06:59 Intake Total 1400 / 1400 150 / 150 Balance 1400 / 1400 150 / 150 Weight 82.5 kg Intake: IV 100 / 100 Ancef Inj 1,000 MG In NS Inj 100 / 100 100 ML @ 200 mls/hr IV.SIG Q8H JO Rx#:[id number] Oral 1300 / 1300 150 / 150 Other: # Voids 3 2 # Incontinent Voids 1 4 # Urine Diapers 3 Narrative: Sleeping but arousable. Left lower extremity: dressing in place without significant drainage. NVI distally. Neg Homans. CKS in place Results - Labs CBC & Chem 7: 03/09/18 03:46 03/10/18 04:56 Laboratory Results - last 24 hr 03/10/18 04:56 Sodium 135 L Potassium 4.2 D Chloride 97 L Carbon Dioxide 30.4 Anion Gap 8 BUN 15 Creatinine 0.82 Estimated GFR 69 L Random Glucose 82 Calcium 9.1 Assessment and Plan - Assessment and Plan 72-year-old female with multiple medical problems, minimal ambulator, POD#3 s/p L hip hemiarthroplasty 1. Weightbearing as tolerated left lower extremity. Anterolateral hip precautions. No active abduction exercises 2. Physical therapy for mobilization 3. Lovenox for DVT prophylaxis while inpatient. Would switch to Xarelto upon discharge for 3 weeks. 4. Discharge planning: Patient lives at [facility] and likely will require placement.
--- NOTE | 2018-03-11 08:29 | P.PNFP ---
Subjective Interval history: Patient seen and examined this morning. Patient is complaining of mild left sided hip soreness at the surgical site, same or better than yesterday. No other complaints at present. Patient anxious to return to [facility]. Denies fever, nausea, vomiting, chest pain, shortness of breath, or abdominal pain. <BeeaugustaYvette - 03/11/18 08:35> Results - Labs Result diagrams: 03/09/18 03:46 03/10/18 04:56 <Jasvir Schmitt - 03/11/18 16:42> Physical Exam Vital signs: Vital Signs 03/10/18 17:38 03/10/18 20:00 03/10/18 23:28 Temperature 98.2 F 98.0 F Pulse Rate 100 H 67 Respiratory Rate 12 16 18 Blood Pressure 122/70 115/65 Pulse Oximetry 97 96 03/11/18 04:00 03/11/18 07:47 Temperature 98.3 F 98.0 F Pulse Rate 90 88 Respiratory Rate 18 17 Blood Pressure 121/69 117/79 Pulse Oximetry 94 L 96 Intake & Output 03/10/18 03/11/18 03/11/18 18:59 06:59 18:59 Intake Total 150 / 150 Balance 150 / 150 Intake: Oral 150 / 150 Other: # Voids 2 # Incontinent Voids 4 Date of Last Bowel Movement 03/08/18 <Jasvir Schmitt - 03/11/18 16:42> Vital Signs 03/10/18 09:00 03/10/18 12:00 03/10/18 16:00 Temperature 98 F 98.1 F Pulse Rate 78 95 H Respiratory Rate 14 18 18 Blood Pressure 123/61 148/72 H Pulse Oximetry 93 L 95 03/10/18 17:38 03/10/18 20:00 03/10/18 23:28 Temperature 98.2 F 98.0 F Pulse Rate 100 H 67 Respiratory Rate 12 16 18 Blood Pressure 122/70 115/65 Pulse Oximetry 97 96 03/11/18 04:00 03/11/18 07:47 Temperature 98.3 F 98.0 F Pulse Rate 90 88 Respiratory Rate 18 17 Blood Pressure 121/69 117/79 Pulse Oximetry 94 L 96 Intake & Output 03/10/18 03/11/18 03/11/18 18:59 06:59 18:59 Intake Total 150 / 150 Balance 150 / 150 Intake: Oral 150 / 150 Other: # Voids 2 # Incontinent Voids 4 <Yvette Ibanez - 03/11/18 08:29> Narrative: GENERAL: 72 year old F well-nourished, well-developed patient, resting comfortably in bed, in no acute distress. CARDIOVASCULAR: Regular rate and rhythm. No murmurs. RESPIRATORY: Clear to auscultation. Breath sounds equal bilaterally. No wheezes , rales, or rhonchi. GASTROINTESTINAL: Abdomen soft, non-tender, nondistended. MUSCULOSKELETAL: Extremities without clubbing, cyanosis, or edema. Bandage over left hip clean, dry, and intact. No change in sensation. Posterior tibialis and dorsalis pedis pulses intact bilaterally. No calf tenderness. NEURO: Alert & Oriented x4 to person, place, time, situation. Moves all extremities. <Yvette Ibanez Gabriel - 03/11/18 16:08> Assessment and Plan - Assessment (1) Fracture of femoral neck, left, closed Code(s): S72.002A - Fracture of unspecified part of neck of left femur, initial encounter for closed fracture Status: Acute (2) Alzheimer disease Code(s): G30.9 - Alzheimer's disease, unspecified; F02.80 - Dementia in other diseases classified elsewhere without behavioral disturbance Status: Acute (3) HLD (hyperlipidemia) Code(s): E78.5 - Hyperlipidemia, unspecified Status: Acute (4) Vitamin deficiency Code(s): E56.9 - Vitamin deficiency, unspecified Status: Acute (5) Nutrition, metabolism, and development symptoms Code(s): R63.8 - Other symptoms and signs concerning food and fluid intake Status: Acute (6) DVT prophylaxis Status: Acute <Jasvir Schmitt - 03/11/18 16:42> (1) Fracture of femoral neck, left, closed Code(s): S72.002A - Fracture of unspecified part of neck of left femur, initial encounter for closed fracture Status: Acute Plan: Acute, closed, comminuted and impacted subcapital left femoral neck fracture as per CT obtained from [facility] radiology. s/p L hip hemiarthroplasty on 03/08. Pain Control: Adjusted in preparation for discharge. Tylenol 650mg PO q6hr PRN Pain 1-2. [place] 5/325 PO q6hr PRN Pain 3-5. [place] 10/325 PO q8hr PRN Pain 6-10. Morphine DC'd Weightbearing as tolerated; anterolateral hip precautions and no active abduction exercises. PT continue outpatient. Lovenox for DVT prophylaxis for now. Plan for Xarelto outpatient. (2) Alzheimer disease Code(s): G30.9 - Alzheimer's disease, unspecified; F02.80 - Dementia in other diseases classified elsewhere without behavioral disturbance Status: Acute Plan: History of Alzheimer's disease. Continue home donepezil. (3) HLD (hyperlipidemia) Code(s): E78.5 - Hyperlipidemia, unspecified Status: Acute Plan: History of hyperlipidemia. Continue home atorvastatin 20 mg. (4) Vitamin deficiency Code(s): E56.9 - Vitamin deficiency, unspecified Status: Acute Plan: History of vitamin deficiency. Continue home vitamins. (5) Nutrition, metabolism, and development symptoms Code(s): R63.8 - Other symptoms and signs concerning food and fluid intake Status: Acute Plan: Fluids: * Tolerating PO. Electrolytes: * Monitor and replete as necessary. Nutrition: * Regular diet. (6) DVT prophylaxis Status: Acute Plan: Lovenox 40mg SQ daily. <Yvette Ibanez - 03/11/18 16:07> - Assessment and Plan 72-year-old female with past history of COPD, dementia, depression, hypertension who presented for left femoral fracture. Fracture diagnosed by CT outpatient. Noted on hip x-ray inpatient as well. Underwent hip hemiathroplasty on 03/08. Plan for Xarelto 10 mg for 3 weeks outpatient. Will follow up with Ortho in 2-3 weeks. Plan for DC back to [facility] today. <Yvette Ibanez - 03/11/18 08:39> - Attending Attestation Patient case discussed with resident physicians I have independently examined the patient I have read the above note and agree with the assessment and plan as discussed with me I was involved in all medical decision making for this patient Jasvir Schmitt MD <Jasvir Schmitt - 03/11/18 16:42>
[2018-03-11] MEDS: Pantoprazole Sodium 20 MG DR Tablet PO SCH (08:35)
[2018-03-11] MEDS: Ferrous Sulfate 325 MG Tablet PO SCH (08:35)
[2018-03-11] MEDS: Folic Acid 1 MG Tablet PO SCH (08:35)
[2018-03-11] MEDS: Multivitamin/Minerals Therapeutic Tablet PO SCH (08:35)
[2018-03-11] MEDS: Tolterodine Tartrate LA 4 MG Capsule PO SCH (08:35)
--- NOTE | 2018-03-13 07:30 | P.OP ---
Date of procedure: 03/08/18 Procedure: Left hip hemiarthroplasty Implants: Depuy cemented hemiarthroplasty Anesthesia: [facility] Surgeon: Carli Moon MD Estimated blood loss (mL): 50 Pathology: none sent Operation and Findings: Indications for procedure: Patient is a 72-year-old female who presented to the hospital from [facility] after reported left hip pain and suspicion for hip fracture. Patient was found to have a left displaced subcapital femoral neck fracture. Recommendation for left hip hemiarthroplasty. Risks of surgery including but not limited to: Infection, periprosthetic fracture, hardware malposition or failure, persistent hip pain and/or stiffness, hip weakness, hip instability and /or dislocation, neurovascular injury, possible need for further surgery, limb length discrepancy, and other unforeseen complications were all discussed with the patient. At this time she is agreed to the above-mentioned procedure. Description of procedure: Patient was brought back to the operating room where general anesthesia then ensued. Patient was carefully positioned on the operating room table with her left hip up in a lateral position on a pegboard. All bony prominences were well padded and an axillary roll was placed. Patient was prepped and draped in standard sterile fashion. Preoperative antibiotics were given within 1 hour of incision. A timeout was performed to identify the correct patient, side, site and procedure to be performed. An approximately 5-6 inch incision was made over the greater trochanter with sharp dissection through the skin and subcutaneous tissue down to fascia. Hemostasis was then achieved with electrocautery. The fascia was then incised in line with the skin incision. A Charnley retractor was then placed. The anterior third of the gluteus medius was then elevated subperiosteally off the greater trochanter. This allowed access to the anterior hip capsule which was then incised. The displaced subcapital femoral neck fracture was immediately encountered. The lesser trochanter was identified and a femoral neck cut was made approximately 1 cm above the lesser trochanter. The femoral head was then removed and sized on the back table. The leg was then externally rotated and flexed to allow access to the femoral canal. The femur was subsequently reamed and broached. The femur was calcar planed over the broach. A trial neck and head was then placed on the broach and the hip was reduced. At this time, the hip appeared stable with range of motion and leg length appeared essentially equal. There was good shuck of the hip as well. The hip was then dislocated and the trial head, neck and broach was removed. The femur was thoroughly irrigated. A cement restrictor was placed into the femur. Cement was mixed on the back table and then inserted into the femoral canal. At this time, the final femoral stem was then inserted and was found to be in good position and stable. Again, a trial head was affixed to the stem and the hip reduced. Again , the hip appeared stable to range of motion and leg lengths appeared essentially equal. The hip again was dislocated and the trial head removed. The final bipolar head was then affixed to the femoral stem. The wound was thoroughly irrigated and the hip reduced again. The hip appeared stable through range of motion and length makes appeared essentially equal. There was good shuck of the hip as well. The hip capsule was then closed with #1 Vicryl suture. The gluteus medius was then repaired back to the greater trochanter through bone tunnels with #5 Tycron suture. The fascia was then closed with running #1 Vicryl sutures in the subcutaneous tissue was closed with interrupted Vicryl sutures. The skin was then closed with rita and sterile dressings were applied. Patient was placed into a knee immobilizer and abduction pillow. Patient was transferred off the operating room table and placed supine on hospital bed. Patient was awoken from general anesthesia without complication. Disposition: Patient will be weightbearing as tolerated to the left lower extremity. Anterolateral hip precautions. No active abduction
--- NOTE | 2018-03-13 15:20 | P.DS ---
Date of admission: 03/08/18 01:52 Primary care physician: No Primary Care Physician Brief History from admission: Patient was taken to the OR this morning per orthopedics for left hip hemiarthroplasty. Patient presented status post fall from her assisted living facility where she initially had normal x-rays but had continued pain and CT scan showed comminuted impacted subcapital left femoral neck fracture. In the emergency department, she was triaged and admitted for surgical treatment. DS: Diagnosis - Discharge Diagnosis (1) Fracture of femoral neck, left, closed Status: Acute (2) Alzheimer disease Status: Chronic (3) HLD (hyperlipidemia) Status: Chronic (4) Vitamin deficiency Status: Acute (5) Nutrition, metabolism, and development symptoms Status: Acute (6) DVT prophylaxis Status: Chronic DS: Medications - Discharge Medications Prescriptions: rivaroxaban [Xarelto] 10 mg PO DAILY #21 tab DS: Summary Hospital Course: This is a 72-year-old female with past medical history of COPD, hypertension, dementia, depression who presented to the ED for left hip fracture following a mechanical fall. Imaging showed a subcapital fracture of the left femoral neck and patient was scheduled for left hip hemiarthroscopy with Dr. Moon on . Patient had an uneventful recovery and was cleared by surgery on postop day 2. Patient was prepared for discharge on 03/10, however, for placement back at patient's [facility] she required a total of 3 midnights in the hospital, per case management. On 03/11, patient was discharged from the hospital in stable condition with orthopedic recommendations of weightbearing as tolerated on the lower left extremity with anterior lateral hip precautions, no active abduction exercises, physical therapy for further mobilization, and a prescription for 21 days of Xarelto. Patient to follow-up with orthopedic surgery in their outpatient clinic in 3 weeks. - Time Spent with Patient Total time spent providing and/or coordinating discharge services: Greater than 30 minutes - Quality: VTE Deep Vein Thrombosis/Pulmonary Embolism Present on Admission: No Results Procedures completed during hospitalization: Left hip hemiarthroscopy performed on 03/08/18 - Impressions ITS Impressions Pelvis X-Ray 03/08/18 00:00 CONCLUSION: 1. Left hip arthroplasty in gross anatomic alignment without acute fracture. Chest X-Ray 03/08/18 00:01 CONCLUSION: No active disease. Remote right clavicle fracture with nonunion. Hip X-Ray 03/08/18 00:01 CONCLUSION: Subcapital fracture left femoral neck. Discharge Plan - Discharge Disposition Patient Disposition: [facility] - Discharge Condition Condition: Stable - Discharge Order Discharge Orders: Discharge Order (Routine); Ordered 03/11/18 Ordered By: Yvette Ibanez Orthopedic Clear for Discharge (Routine); Ordered 03/10/18 Ordered By: Carli Moon - Discharge Details Anticipated Discharge Date: 03/11/18 - Physicians Team Primary Care Provider: Primary Care Misty Balbuena Attending Provider: Jasvir Schmitt Other Providers: Carli Moon MD ; [facility]Agency
== END 2018-03-11 10:00 ==
LOC: NEPD 20:24 → NEDA 03-08 01:52 → N06 03-08 02:59
PROVIDERS: ADMIT Family Medicine; ATTEND Family Medicine